=== PATIENT | female | born 1935 | race Caucasian/White ===

== ENCOUNTER → 2016-03-05 | Outpatient (REF) | payer MEDICARE, MEDICAID ==
[~2016-03-05] MED LIST: CALCTAB22 OR; CRES40TA OR; LISI40TA OR; OMEP20TA7 OR; VIT D 2000 PO
== END ==
LOC: M LAB REF 11:14
PROVIDERS: ATTEND Internal Medicine Endocrinology, Diabetes & Metabolism
DX: E04.2 Nontoxic multinodular goiter (principal)

== ENCOUNTER 2016-03-22 00:10 | Emergency (ER) | payer MEDICARE, MEDICAID ==
[2016-03-22] MEDS ORDERED: ACETAMINOPHEN 325 MG TAB As Ordered ONE (00:56)
[2016-03-22] MEDS ORDERED: ACETAMINOPH W/CODEINE #3 TAB UD As Ordered ONE (00:56)
--- NOTE | 2016-03-22 01:06 | EDDOCDS ---
Nurse's Notes [facility] Name: Radha Swain Age: 80 yrs Sex: Female : 1935 Arrival Date: 03/22/2016 Time: 00:10 Bed I1 / M1 Private MD: Diagnosis: Strain of muscle, fascia and tendon at neck level-left Presentation: 03/22 00:16 Presenting complaint: Patient states: pain to left side of neck that started this jo3 morning when she woke up. States that she cannot turn her head and it is painful to touch. Risk Factors No acute neurological deficit is noted. Adult Sepsis Screening: The patient does not have new or worsening altered mentation. Patient's respiratory rate is less than 22. Systolic blood pressure is greater than 100. Patient has a qSOFA score of 0- Negative Sepsis Screen. Suicide/Homicide risk assessment- the patient denies having any suicidal and/or homicidal ideations and does not present with any other emotional, behavioral or mental health complaints. Status: Patient is not a rural service engineer or dependent. Transition of care: patient was not received from another setting of care. 00:16 Acuity: ABELINO Level 4 jo3 00:16 Method Of Arrival: Walkin/Carried/Asstd jo3 Triage Assessment: 00:22 General: Appears in no apparent distress, Behavior is appropriate for age, cooperative, jo3 pleasant. Pain: Pain currently is 7 out of 10 on a pain scale. Neurological: Level of Consciousness is awake, alert. Respiratory: Airway is patent Respiratory effort is even, unlabored. Derm: Skin is pink, warm & dry. Historical: - Allergies: no known allergies; - Home Meds: 1. multivitamin Oral tab 1 tab daily 2. lisinopril 40 mg Oral tab 1 tab once daily 3. omeprazole 20 mg Oral cpDR 1 cap once daily 4. Advair Diskus 250-50 mcg/dose Inhl dsdv 2 times per day 5. aspirin 81 mg Oral tab 1 tab once daily 6. Crestor 40 mg Oral tab 1 tab once daily 7. Oysco-500 500 mg calcium (1,250 mg) oral tab twice a day 8. Vitamin D Oral 2000 unit daily - PMHx: Asthma; COPD; GERD; Hypercholesterolemia; Hypertension; Vitamin D deficiency; - PSHx: Cataract Surgery- Bilateral; - Social history: Smoking status: Patient states was never smoker of tobacco. No barriers to communication noted, The patient speaks fluent Ugandan, Speaks appropriately for age. - Family history: Not pertinent. - : The pt / caregiver states he / she is not on anticoagulants. Home medication list is obtained from the patient. - Exposure Risk Screening:: None identified. Screenin:52 Screening information is obtained from the patient. Fall risk: No risks identified. tm5 Assistance ADL's: requires no assistance with activities of daily living. Abuse/DV Screen: The patient / caregiver reports he/she is: not in a situation that causes fear, pain or injury. Nutritional screening: No deficits noted. Advance Directives: Currently, there is no health care proxy. There is no active DNR order. home support is adequate. Assessment: 00:53 General: Appears in no apparent distress, Behavior is appropriate for age, cooperative. tm5 Pain: Location: left side of neck Pain currently is 6 out of 10 on a pain scale. Quality of pain is described as aching. Neurological: Level of Consciousness is awake, alert, Oriented to person, place, time, Reports no additional symptoms. Respiratory: No deficits noted. GI: No deficits noted. : No deficits noted. Derm: Skin is pink, warm & dry. normal. Musculoskeletal: Reports pain in neck. 01:03 General: Appears in no apparent distress, Behavior is cooperative. General: Pt ld5 medicated per orders. Pain: Pain currently is 6 out of 10 on a pain scale. Respiratory: Airway is patent Respiratory effort is even, unlabored. Vital Signs: 00:22 BP 186 / 83; Pulse 82; Resp 16; Temp 99.2; Pulse Ox 96% ; Weight 53.07 kg; Height 5 ft. jo3 4 in. (162.56 cm); Pain 7/10; 00:32 BP 162 / 78 RA Sitting (man/); jo3 00:22 Body Mass Index 20.08 (53.07 kg, 162.56 cm) jo3 Vitals: 00:22 Log In Time: March 22, 2016 at 00:12. jo3 ED Course: 00:11 Patient visited by Leigh Martin Reg. hs2 00:11 Patient moved to Waiting hs2 00:20 Triage Initiated jo3 00:25 Patient visited by Ade Devries RN. jo3 00:36 Willam Mays PA is PHCP. mo1 00:36 John Henry DO is Attending Physician. mo1 00:36 Patient moved to I1 / M1 jo3 00:45 Patient visited by Willam Mays PA. mo1 00:52 Patient visited by Ashtyn Julien RN. tm5 00:52 ED physician to see patient. tm5 00:52 The patient / caregiver is instructed regarding the plan of care and ED course. tm5 00:52 No IV's were initiated during this patient's visit. No procedures done that require tm5 assistance. 01:05 Patient visited by Marilee Olivas RN. ld5 Administered Medications: 01:04 Drug: Acetaminophen-Codeine 1 tabs [acetaminophen 300 mg-codeine 30 mg tablet (1 tabs)] ld5 Route: PO; 01:05 Follow up: Response: Med's dispensed home ld5 01:05 Drug: Acetaminophen 650 mg [acetaminophen 325 mg tablet (2 tabs)] Route: PO; ld5 01:05 Follow up: Response: Pt left department before re-evaluation is appropriate ld5 Order Results: There are currently no results for this order. Outcome: 00:53 Discharge ordered by Provider. mo1 01:03 Discharge Assessment: Patient awake, alert and oriented x 3. No cognitive and/or ld5 functional deficits noted. Patient verbalized understanding of disposition instructions. patient administered narcotics - yes. Pt provided with safe discharge. The following High Risk Discharge criteria are identified: None. Discharged to home ambulatory, with friend. Condition: stable. Discharge instructions given to patient, Instructed on discharge instructions, follow up and referral plans. medication usage, no driving heavy equipment, Demonstrated understanding of instructions, medications, Pt was receptive of discharge instructions/ teaching. Prescriptions given X 1. No special radiology studies were completed. Property :Personal belongings accompany Pt. 01:05 Patient left the ED. ld5 Signatures: Ade Devries RN RN jo3 Marilee Olivas RN RN ld5 Willam Mays PA PA mo1 Leigh Martin, Reg Reg hs2 Ashtyn Julien,JUANCARLOS BAUER tm5 MTDD
--- NOTE | 2016-03-22 01:06 | EDDOCDS ---
Physician Documentation [facility] Name: Radha Swain Age: 80 yrs Sex: Female : 1935 Arrival Date: 03/22/2016 Time: 00:10 Bed I1 / M1 Private MD: Disposition: 03/22/16 00:53 Discharged to Home/Self Care. Impression: Strain of muscle, fascia and tendon at neck level - left. - Condition is Stable. - Discharge Instructions: Soft Tissue Injury of the Neck, Cervical Sprain. - Prescriptions for Tylenol- Codeine #3 300-30 mg Oral Tablet - take 2 tablet by ORAL route every 6 hours As needed MDD: 4 tabs; 6 tablet. - Medication Reconciliation, Local Pharmacy Hours form. - Follow up: Private Physician; When: Call to arrange an appointment; Reason: Recheck today's complaints, Continuance of care. - Problem is new. - Symptoms are unchanged. Historical: - Allergies: no known allergies; - Home Meds: 1. multivitamin Oral tab 1 tab daily 2. lisinopril 40 mg Oral tab 1 tab once daily 3. omeprazole 20 mg Oral cpDR 1 cap once daily 4. Advair Diskus 250-50 mcg/dose Inhl dsdv 2 times per day 5. aspirin 81 mg Oral tab 1 tab once daily 6. Crestor 40 mg Oral tab 1 tab once daily 7. Oysco-500 500 mg calcium (1,250 mg) oral tab twice a day 8. Vitamin D Oral 2000 unit daily - PMHx: Asthma; COPD; GERD; Hypercholesterolemia; Hypertension; Vitamin D deficiency; - PSHx: Cataract Surgery- Bilateral; - Social history: Smoking status: Patient states was never smoker of tobacco. No barriers to communication noted, The patient speaks fluent South Korean, Speaks appropriately for age. - Family history: Not pertinent. - : The pt / caregiver states he / she is not on anticoagulants. Home medication list is obtained from the patient. - Exposure Risk Screening:: None identified. Vital Signs: 03/22 00:22 BP 186 / 83; Pulse 82; Resp 16; Temp 99.2; Pulse Ox 96% ; Weight 53.07 kg / 117 lbs; jo3 Height 5 ft. 4 in. (162.56 cm); Pain 7/10; 00:32 BP 162 / 78 RA Sitting (man/); jo3 00:22 Body Mass Index 20.08 (53.07 kg, 162.56 cm) jo3 MDM: 00:52 Acetaminophen Tablet 650 mg PO once ordered. mo1 00:52 Acetaminophen-Codeine 300 mg-30 mg 1 tabs PO once; please give to go home ordered. mo1 Administered Medications: 01:04 Drug: Acetaminophen-Codeine 1 tabs [acetaminophen 300 mg-codeine 30 mg tablet (1 tabs)] ld5 Route: PO; 01:05 Follow up: Response: Med's dispensed home ld5 01:05 Drug: Acetaminophen 650 mg [acetaminophen 325 mg tablet (2 tabs)] Route: PO; ld5 01:05 Follow up: Response: Pt left department before re-evaluation is appropriate ld5 Signatures: Ade Devries RN RN jo3 Marilee Olivas RN RN ld5 Willam Mays PA PA mo1 Ashtyn Julien,RN RN tm5 MTDD
--- NOTE | 2016-03-24 02:06 | EDDOCDS ---
Nurse's Notes [facility] Name: Radha Swain Age: 80 yrs Sex: Female : 1935 Arrival Date: 03/22/2016 Time: 00:10 Bed I1 / M1 Private MD: Diagnosis: Strain of muscle, fascia and tendon at neck level-left Presentation: 03/22 00:16 Presenting complaint: Patient states: pain to left side of neck that started this jo3 morning when she woke up. States that she cannot turn her head and it is painful to touch. Risk Factors No acute neurological deficit is noted. Adult Sepsis Screening: The patient does not have new or worsening altered mentation. Patient's respiratory rate is less than 22. Systolic blood pressure is greater than 100. Patient has a qSOFA score of 0- Negative Sepsis Screen. Suicide/Homicide risk assessment- the patient denies having any suicidal and/or homicidal ideations and does not present with any other emotional, behavioral or mental health complaints. 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 Transition of care: patient was not received from another setting of care. 00:16 Acuity: ABELINO Level 4 jo3 00:16 Method Of Arrival: Walkin/Carried/Asstd jo3 Triage Assessment: 00:22 General: Appears in no apparent distress, Behavior is appropriate for age, cooperative, jo3 pleasant. Pain: Pain currently is 7 out of 10 on a pain scale. Neurological: Level of Consciousness is awake, alert. Respiratory: Airway is patent Respiratory effort is even, unlabored. Derm: Skin is pink, warm & dry. Historical: - Allergies: no known allergies; - Home Meds: 1. multivitamin Oral tab 1 tab daily 2. lisinopril 40 mg Oral tab 1 tab once daily 3. omeprazole 20 mg Oral cpDR 1 cap once daily 4. Advair Diskus 250-50 mcg/dose Inhl dsdv 2 times per day 5. aspirin 81 mg Oral tab 1 tab once daily 6. Crestor 40 mg Oral tab 1 tab once daily 7. Oysco-500 500 mg calcium (1,250 mg) oral tab twice a day 8. Vitamin D Oral 2000 unit daily - PMHx: Asthma; COPD; GERD; Hypercholesterolemia; Hypertension; Vitamin D deficiency; - PSHx: Cataract Surgery- Bilateral; - Social history: Smoking status: Patient states was never smoker of tobacco. No barriers to communication noted, The patient speaks fluent Cambodian, Speaks appropriately for age. - Family history: Not pertinent. - : The pt / caregiver states he / she is not on anticoagulants. Home medication list is obtained from the patient. - Exposure Risk Screening:: None identified. Screenin:52 Screening information is obtained from the patient. Fall risk: No risks identified. tm5 Assistance ADL's: requires no assistance with activities of daily living. Abuse/DV Screen: The patient / caregiver reports he/she is: not in a situation that causes fear, pain or injury. Nutritional screening: No deficits noted. Advance Directives: Currently, there is no health care proxy. There is no active DNR order. home support is adequate. Assessment: 00:53 General: Appears in no apparent distress, Behavior is appropriate for age, cooperative. tm5 Pain: Location: left side of neck Pain currently is 6 out of 10 on a pain scale. Quality of pain is described as aching. Neurological: Level of Consciousness is awake, alert, Oriented to person, place, time, Reports no additional symptoms. Respiratory: No deficits noted. GI: No deficits noted. : No deficits noted. Derm: Skin is pink, warm & dry. normal. Musculoskeletal: Reports pain in neck. 01:03 General: Appears in no apparent distress, Behavior is cooperative. General: Pt ld5 medicated per orders. Pain: Pain currently is 6 out of 10 on a pain scale. Respiratory: Airway is patent Respiratory effort is even, unlabored. Vital Signs: 00:22 BP 186 / 83; Pulse 82; Resp 16; Temp 99.2; Pulse Ox 96% ; Weight 53.07 kg; Height 5 ft. jo3 4 in. (162.56 cm); Pain 7/10; 00:32 BP 162 / 78 RA Sitting (man/); jo3 00:22 Body Mass Index 20.08 (53.07 kg, 162.56 cm) jo3 Vitals: 00:22 Log In Time: March 22, 2016 at 00:12. jo3 ED Course: 00:11 Patient visited by Liegh Martin Reg. hs2 00:11 Patient moved to Waiting hs2 00:20 Triage Initiated jo3 00:25 Patient visited by Ade Devries RN. jo3 00:36 Willam Mays PA is PHCP. mo1 00:36 John Henry DO is Attending Physician. mo1 00:36 Patient moved to I1 / M1 jo3 00:45 Patient visited by Willam Mays PA. mo1 00:52 Patient visited by Ashtyn Julien RN. tm5 00:52 ED physician to see patient. tm5 00:52 The patient / caregiver is instructed regarding the plan of care and ED course. tm5 00:52 No IV's were initiated during this patient's visit. No procedures done that require tm5 assistance. 01:05 Patient visited by Marilee Olivas RN. ld5 01:58 [facility] Payment Agreement was scanned into [employer] and attached to record. [facility] 14:06 T-Sheet-- Draft Copy was scanned into [employer] and attached to record. gb Administered Medications: 01:04 Drug: Acetaminophen-Codeine 1 tabs [acetaminophen 300 mg-codeine 30 mg tablet (1 tabs)] ld5 Route: PO; 01:05 Follow up: Response: Med's dispensed home ld5 01:05 Drug: Acetaminophen 650 mg [acetaminophen 325 mg tablet (2 tabs)] Route: PO; ld5 01:05 Follow up: Response: Pt left department before re-evaluation is appropriate ld5 Order Results: There are currently no results for this order. Outcome: 00:53 Discharge ordered by Provider. mo1 01:03 Discharge Assessment: Patient awake, alert and oriented x 3. No cognitive and/or ld5 functional deficits noted. Patient verbalized understanding of disposition instructions. patient administered narcotics - yes. Pt provided with safe discharge. The following High Risk Discharge criteria are identified: None. Discharged to home ambulatory, with friend. Condition: stable. Discharge instructions given to patient, Instructed on discharge instructions, follow up and referral plans. medication usage, no driving heavy equipment, Demonstrated understanding of instructions, medications, Pt was receptive of discharge instructions/ teaching. Prescriptions given X 1. No special radiology studies were completed. Property :Personal belongings accompany Pt. 01:05 Patient left the ED. ld5 Signatures: Bri Lauren, Reg Reg Ade Finney RN RN jo3 Marilee Olivsa RN RN ld5 Willam Mays PA PA mo1 Beena Verma Hillary, Reg Reg hs2 Ashtyn Julien,RN RN tm5 Chart Complete MTDD
--- NOTE | 2016-03-24 02:06 | EDDOCDS ---
Physician Documentation [facility] Name: Radha Swain Age: 80 yrs Sex: Female : 1935 Arrival Date: 03/22/2016 Time: 00:10 Bed I1 / M1 Private MD: Disposition: 03/22/16 00:53 Discharged to Home/Self Care. Impression: Strain of muscle, fascia and tendon at neck level - left. - Condition is Stable. - Discharge Instructions: Soft Tissue Injury of the Neck, Cervical Sprain. - Prescriptions for Tylenol- Codeine #3 300-30 mg Oral Tablet - take 2 tablet by ORAL route every 6 hours As needed MDD: 4 tabs; 6 tablet. - Medication Reconciliation, Local Pharmacy Hours form. - Follow up: Private Physician; When: Call to arrange an appointment; Reason: Recheck today's complaints, Continuance of care. - Problem is new. - Symptoms are unchanged. Historical: - Allergies: no known allergies; - Home Meds: 1. multivitamin Oral tab 1 tab daily 2. lisinopril 40 mg Oral tab 1 tab once daily 3. omeprazole 20 mg Oral cpDR 1 cap once daily 4. Advair Diskus 250-50 mcg/dose Inhl dsdv 2 times per day 5. aspirin 81 mg Oral tab 1 tab once daily 6. Crestor 40 mg Oral tab 1 tab once daily 7. Oysco-500 500 mg calcium (1,250 mg) oral tab twice a day 8. Vitamin D Oral 2000 unit daily - PMHx: Asthma; COPD; GERD; Hypercholesterolemia; Hypertension; Vitamin D deficiency; - PSHx: Cataract Surgery- Bilateral; - Social history: Smoking status: Patient states was never smoker of tobacco. No barriers to communication noted, The patient speaks fluent Tajik, Speaks appropriately for age. - Family history: Not pertinent. - : The pt / caregiver states he / she is not on anticoagulants. Home medication list is obtained from the patient. - Exposure Risk Screening:: None identified. Vital Signs: 03/22 00:22 BP 186 / 83; Pulse 82; Resp 16; Temp 99.2; Pulse Ox 96% ; Weight 53.07 kg / 117 lbs; jo3 Height 5 ft. 4 in. (162.56 cm); Pain 7/10; 00:32 BP 162 / 78 RA Sitting (man/); jo3 00:22 Body Mass Index 20.08 (53.07 kg, 162.56 cm) jo3 MDM: 00:52 Acetaminophen Tablet 650 mg PO once ordered. mo1 00:52 Acetaminophen-Codeine 300 mg-30 mg 1 tabs PO once; please give to go home ordered. mo1 01:07 Financial registration complete. [facility] 01:58 [facility] Payment Agreement was scanned into [employer] and attached to record. [facility] 14:06 T-Sheet-- Draft Copy was scanned into [employer] and attached to record. gb Administered Medications: 01:04 Drug: Acetaminophen-Codeine 1 tabs [acetaminophen 300 mg-codeine 30 mg tablet (1 tabs)] ld5 Route: PO; 01:05 Follow up: Response: Med's dispensed home ld5 01:05 Drug: Acetaminophen 650 mg [acetaminophen 325 mg tablet (2 tabs)] Route: PO; ld5 01:05 Follow up: Response: Pt left department before re-evaluation is appropriate ld5 Signatures: Bri Lauren, [place] Reg Ade Devries RN RN jo3 Marilee Olivas RN RN ld5 Willam Mays PA PA mo1 Beena Verma [facility] Ashtyn Julien,RN RN tm5 The chart was reviewed and I authenticate all verbal orders and agree with the evaluation and treatment provided.Attachments: :58 [facility] Payment Agreement [facility] 14: T-Sheet-- Draft Copy gb Chart Complete MTDD
--- NOTE | 2016-03-24 02:06 | EDDOCDS ---
Physician Documentation [facility] Name: Radha Swain Age: 80 yrs Sex: Female : 1935 Arrival Date: 03/22/2016 Time: 00:10 Bed I1 / M1 Private MD: Disposition: 03/22/16 00:53 Discharged to Home/Self Care. Impression: Strain of muscle, fascia and tendon at neck level - left. - Condition is Stable. - Discharge Instructions: Soft Tissue Injury of the Neck, Cervical Sprain. - Prescriptions for Tylenol- Codeine #3 300-30 mg Oral Tablet - take 2 tablet by ORAL route every 6 hours As needed MDD: 4 tabs; 6 tablet. - Medication Reconciliation, Local Pharmacy Hours form. - Follow up: Private Physician; When: Call to arrange an appointment; Reason: Recheck today's complaints, Continuance of care. - Problem is new. - Symptoms are unchanged. Historical: - Allergies: no known allergies; - Home Meds: 1. multivitamin Oral tab 1 tab daily 2. lisinopril 40 mg Oral tab 1 tab once daily 3. omeprazole 20 mg Oral cpDR 1 cap once daily 4. Advair Diskus 250-50 mcg/dose Inhl dsdv 2 times per day 5. aspirin 81 mg Oral tab 1 tab once daily 6. Crestor 40 mg Oral tab 1 tab once daily 7. Oysco-500 500 mg calcium (1,250 mg) oral tab twice a day 8. Vitamin D Oral 2000 unit daily - PMHx: Asthma; COPD; GERD; Hypercholesterolemia; Hypertension; Vitamin D deficiency; - PSHx: Cataract Surgery- Bilateral; - Social history: Smoking status: Patient states was never smoker of tobacco. No barriers to communication noted, The patient speaks fluent [place] Citizen, Speaks appropriately for age. - Family history: Not pertinent. - : The pt / caregiver states he / she is not on anticoagulants. Home medication list is obtained from the patient. - Exposure Risk Screening:: None identified. Vital Signs: 03/22 00:22 BP 186 / 83; Pulse 82; Resp 16; Temp 99.2; Pulse Ox 96% ; Weight 53.07 kg / 117 lbs; jo3 Height 5 ft. 4 in. (162.56 cm); Pain 7/10; 00:32 BP 162 / 78 RA Sitting (man/); jo3 00:22 Body Mass Index 20.08 (53.07 kg, 162.56 cm) jo3 MDM: 00:52 Acetaminophen Tablet 650 mg PO once ordered. mo1 00:52 Acetaminophen-Codeine 300 mg-30 mg 1 tabs PO once; please give to go home ordered. mo1 01:07 Financial registration complete. [facility] 01:58 [facility] Payment Agreement was scanned into [employer] and attached to record. [facility] 14:06 T-Sheet-- Draft Copy was scanned into [employer] and attached to record. gb Administered Medications: 01:04 Drug: Acetaminophen-Codeine 1 tabs [acetaminophen 300 mg-codeine 30 mg tablet (1 tabs)] ld5 Route: PO; 01:05 Follow up: Response: Med's dispensed home ld5 01:05 Drug: Acetaminophen 650 mg [acetaminophen 325 mg tablet (2 tabs)] Route: PO; ld5 01:05 Follow up: Response: Pt left department before re-evaluation is appropriate ld5 Signatures: Bri Lauren, [place] Reg Ade Devries RN RN jo3 Marilee Olivas RN RN ld5 Willam Mays PA PA mo1 Beena Verma [facility] Ashtyn Julien,RN RN tm5 The chart was reviewed and I authenticate all verbal orders and agree with the evaluation and treatment provided.Attachments: :58 [facility] Payment Agreement [facility] 14: T-Sheet-- Draft Copy gb Chart Complete MTDD
== END 2016-03-22 01:05 | disposition home or self-care (01) ==
LOC: M ED 00:10
DX: S16.1XXA Strain of muscle, fascia and tendon at neck level, initial encounter (principal); X50.9XXA Other and unspecified overexertion or strenuous movements or postures, initial encounter; Y92.019 Unspecified place in single-family (private) house as the place of occurrence of the external cause; Y93.89 Activity, other specified; Y99.8 Other external cause status; J44.9 Chronic obstructive pulmonary disease, unspecified; J45.909 Unspecified asthma, uncomplicated; K21.9 Gastro-esophageal reflux disease without esophagitis; E78.00 Pure hypercholesterolemia, unspecified; I10 Essential (primary) hypertension; E55.9 Vitamin D deficiency, unspecified; Z79.82 Long term (current) use of aspirin; Z79.51 Long term (current) use of inhaled steroids; Z79.899 Other long term (current) drug therapy

== ENCOUNTER 2016-05-22 10:31 | Inpatient (IN) | payer MEDICARE, MEDICAID ==
[~2016-05-22] VITALS: Ht 162.6 cm; Wt 53.2 kg
[2016-05-22] VITALS (8 sets, daily range): BP systolic 148–182; BP diastolic 62–80; O2SAT 85–96
[2016-05-22] MEDS: ADVAIR DISKUS 250/50 INH PWD INH SCH (01:58)
[~2016-05-22 10:31] MED LIST changes: +ADV100INH INH; +ADV250INH INH; +ASPI1TAB PO; +CRES5TAB PO; +LISI10TA4 PO; +OMEP40CA2 PO; +OYST500T76 PO; +PRESCAP PO; +VITA200038 PO
[2016-05-22] MEDS ORDERED: LR 1,000 ML IV SCH ×2 (10:45→17:00)
[2016-05-22] MEDS ORDERED: dexameTHASONE 4 MG/ML 1ML VIAL (J1100) IV ONE (12:15)
[2016-05-22] MEDS ORDERED: LIDOCAINE W/EPINEPHRINE 1% 20ML VIAL As Ordered ONE (12:50)
[2016-05-22] MEDS ORDERED: fentaNYL 100 MCG/2 ML INJECTION (J3010) As Ordered ONE ×2 (13:19→14:11)
[2016-05-22] MEDS ORDERED: MIDAZOLAM INJ 2 MG/2 ML VIAL (J2250) As Ordered ONE (13:19)
[2016-05-22] MEDS ORDERED: SUCCINYLCHOLINE 100 MG/5 ML SYRINGE (J0330) As Ordered ONE (13:24)
[2016-05-22] MEDS ORDERED: ONDANSETRON 4MG/2ML VIAL (J2405) As Ordered ONE (13:24)
[2016-05-22] MEDS ORDERED: PROPOFOL 200 MG/20 ML VIAL As Ordered ONE (13:24)
[2016-05-22] MEDS ORDERED: ROCURONIUM BROMIDE 50 MG/5 ML VIAL As Ordered ONE (13:25)
[2016-05-22] MEDS ORDERED: REMIFENTANIL 1MG 3ML VIAL As Ordered ONE (15:39)
[2016-05-22 16:57] LABS: IONIZED CALCIUM 4.8 MG/DL (4.5-5.3)
[2016-05-22] MEDS ORDERED: ONDANSETRON 4MG/2ML VIAL (J2405) IV PRN (17:00)
[2016-05-22] MEDS ORDERED: PERCOCET 5MG/325MG TAB PO PRN (17:00)
[2016-05-22] MEDS: LR 1,000 ML IV SCH (17:00)
[2016-05-22] MEDS ORDERED: MEPERIDINE INJ 25 MG/ML VIAL (J2175) IV PRN (17:00)
[2016-05-22] MEDS ORDERED: fentaNYL 100 MCG/2 ML INJECTION (J3010) IV PRN (17:00)
[2016-05-22] MEDS ORDERED: METOCLOPRAMIDE INJ 10MG/2ML VIAL (J2765) IV PRN (17:00)
[2016-05-22] MEDS ORDERED: ALBUTEROL SULFATE 2.5 MG/0.5 ML INH NEB SOLN INH ONE (17:30)
--- NOTE | 2016-05-22 18:54 | REP ---
CHEST, ONE VIEW: HISTORY: Post-op. COMPARISON: 12/13/2010. There is elevation of the left hemidiaphragm with loss of volume in the left hemithorax. Increased density is present in the left lower lobe consistent with atelectasis or infiltrate. The right lung is clear. The cardiac silhouette is enlarged. The pulmonary vasculature is normal in appearance. IMPRESSION: Left lower lobe atelectasis or infiltrate. Signed by Elton Nunn MD 05/22/2016 07:16 P
[2016-05-22] MEDS ORDERED: MORPHINE 4 MG/ML 1ML SYRINGE IV PRN (19:15)
[2016-05-22] MEDS ORDERED: ALBUTEROL SULFATE 2.5 MG/0.5 ML INH NEB SOLN As Ordered ONE (19:49)
[2016-05-22] MEDS: OYSTER SHELL CALCIUM 500 MG TAB PO SCH (21:00)
[2016-05-22] MEDS: ONDANSETRON 4MG/2ML VIAL (J2405) IV PRN (21:19)
[2016-05-22 22:38] LABS: IONIZED CALCIUM 4.4 MG/DL (4.5-5.3)
[2016-05-23] VITALS (11 sets, daily range): BP systolic 115–159; BP diastolic 58–106; O2SAT 92–97
[2016-05-23] MEDS: NORCO, ANEXSIA 5/325MG TABLET (HYDROcodone/ACETAMINOPHEN) PO PRN ×2 (03:19→11:20)
[2016-05-23 05:36] LABS: IONIZED CALCIUM 4.3 MG/DL (4.5-5.3)
[2016-05-23] MEDS: ROSUVASTATIN 10 MG TAB (CRESTOR) PO SCH (08:05)
[2016-05-23] MEDS: LISINOPRIL 10 MG TAB PO SCH (08:05)
[2016-05-23] MEDS: OMEPRAZOLE 20 MG CAP PO SCH (08:05)
[2016-05-23] MEDS: LR 1,000 ML IV SCH ×2 (08:06→22:41)
[2016-05-23] MEDS ORDERED: OYSTER SHELL CALCIUM 500 MG TAB PO SCH (09:00)
[2016-05-23] MEDS ORDERED: VITAMIN D (CHOLECALCIFEROL) 400 INTERNATIONAL UNITS TAB PO SCH (09:00)
[2016-05-23] MEDS: ADVAIR DISKUS 250/50 INH PWD INH SCH ×2 (09:29→21:46)
[2016-05-23] MEDS ORDERED: VITAMIN D 1,000 INTERNATIONAL UNITS TABLET PO SCH (09:42)
[2016-05-23] MEDS: OYSTER SHELL CALCIUM 500 MG TAB PO SCH ×4 (10:43→20:14)
[2016-05-23] MEDS: VITAMIN D 1,000 INTERNATIONAL UNITS TABLET PO SCH (10:43)
[2016-05-23 12:20] LABS: ANION GAP 9 MEQ/L (8-16); BLOOD UREA NITROGEN 28 MG/DL (7-18); CALCIUM LEVEL 7.9 MG/DL (8.8-10.2); CARBON DIOXIDE LEVEL 29 MEQ/L (21-32); CHLORIDE LEVEL 105 MEQ/L (98-107); GLOMERULAR FILTRATION RATE > 60.0 (>39); GLUCOSE, FASTING 114 MG/DL (83-110); POTASSIUM SERUM 3.8 MEQ/L (3.5-5.1); SODIUM LEVEL 143 MEQ/L (136-145)
[2016-05-23] MEDS ORDERED: CALCIUM GLUCONATE 1,000 MG in D5W MINI-BAG PLUS 100 ML IV ONE (14:00)
[2016-05-23] MEDS: AUGMENTIN 875 MG TAB PO SCH ×2 (14:58→20:14)
--- NOTE | 2016-05-23 15:30 | ECGEPIP ---
Stationary ECG Study [facility] Test Date: 2016-05-23 Pat Name: JACE BAH Department: Room: [place] [address] Gender: F Powertrain Engineer: JOSTIN : 1935 Requested By: FIORDALIZA Durán Order Number: [id number] Reading MD: Moncho Alejandre Measurements Intervals [place] Rate: 95 P: 57 IN: 202 QRS: 10 QRSD: 90 T: 32 QT: 345 QTc: 436 Interpretive Statements SINUS RHYTHM WITH FREQUENT SUPRAVENTRICULAR PREMATURE COMPLEXES SEPTAL MYOCARDIAL INFARCTION, PROBABLY OLD Nonspecific ST-T abnormalities. No prior ECG available for comparison at the time of interpretation. Electronically Signed On 05-23-2016 15:30:41 EDT by Moncho Alejandre
--- NOTE | 2016-05-23 16:32 | CR.PDOC ---
[facility] Consultation Consultation Internal medicine Consult Note Date of Consultation: 05/23/2016 Reason for Consultation: Hypocalcemia and hypomagnesemia status post total thyroidectomy Referring Provider: Dr. Lawrence Comer PCP: Dr. Serrano HISTORY OF PRESENT ILLNESS: Ms. Swain is a 81-year-old female who came into the hospital for a total thyroidectomy and flexible laryngoscopy with Dr. Gooden. Previously she had been followed by her division operations specialist Dr. Meghna Parrish for history of multinodular goiter, however it was discovered that she had an enlargement of a left thyroid nodule, a fine-needle aspirate showed atypical cytology on 2 different occasions showing atypical loops of enlarged follicular cells. She is postoperative day 1 and noted to have hypocalcemia and hypomagnesemia, therefore internal medicine was consulted. Pathology report for her thyroid is still pending at this time. ALLERGIES: No known drug allergies PAST MEDICAL HISTORY: 1. History of multinodular goiter, presurgical FNA pathology shows atypical groups of enlarged follicular cells with overlapping nuclei. Rare Hurthle cell changes are also noted focally. The background shows rare colloid. The possibility of a thyroid carcinoma cannot be excluded. There is also a note on an earlier FNA indicating that these findings are worrisome for papillary carcinoma. 2. Osteoporosis 3. Essential hypertension 4. Chronic kidney disease stage III 5. 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 Chronic obstructive lung disease 7. History of thalassemia minor 8. 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 9. History of abnormal mammogram for which she is being followed by Dr. Mcdonald. PAST SURGICAL HISTORY: Bilateral cataract surgery SOCIAL HISTORY: Denies ever smoking, regular alcohol use, or illicit drug use. 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 Currently she lives alone in an apartment in [place] with her sister living upstairs and a good friend 2 doors down who are both very supportive. She does not have any pets. FAMILY HISTORY: She knows that multiple siblings have had cancer, but she does not know which kind. Otherwise she is unaware of any additional medical problems that run in her family. REVIEW OF SYSTEMS: Constitutional: Patient denies fevers, chills, night sweats, recent weight gain/ loss. HEENT: Patient denies blurred or double vision, transient visual disturbances, postnasal drip, epistaxis, she does admit to having a sore throat and some difficulty swallowing food because of her recent surgery, therefore she continues to be on a soft mechanical diet. Cardiovascular: Patient denies chest discomfort/pain, palpitations, exertional dyspnea, orthopnea, edema of the extremities, claudication. Respiratory: Patient denies dyspnea, wheezing, cough, hemoptysis, sputum production. She is feeling a little SOB Gastrointestinal: Patient denies nausea, vomiting, diarrhea, constipation, abdominal pain, melena, hematochezia, hematemesis, jaundice. Musculoskeletal: Patient denies joint stiffness, pain, swelling Endocrine: Patient denies polyuria, polydipsia, polyphagia. PHYSICAL EXAMINATION: Vitals: Temperature 101.5, pulse 87 regular, respiratory rate 20, blood pressure 136/62, pulse oximetry is 93% on 3 L high flow cannula General: She is reclined in the hospital bed. She is awake, alert, oriented 3. She is a very pleasant mood, and does not voice any concerns at this time. HEENT: Head normocephalic atraumatic, conjunctiva are pink, sclera are nonicteric, buccal mucosa is pink and moist with no lesions in the oropharynx. Hearing is grossly intact to conversation. She does have an area of ecchymoses extending from the surgical site at her suprasternal notch spreading down over the right pectoral region. Steri-Strips are in place. She has hx of carotid bruit, this could not be appreciated on today's exam as she has significant tracheal noises, and would not cooperate with holding breath as she was somewhat anxious and SOB. Respiratory: Clear to auscultation bilaterally with no wheezes, rales, or rhonchi. Cardiovascular: Regular rate and rhythm, with no rubs, gallops, or murmur. Occasional premature beat is noted. Abdomen: Soft, nontender, nondistended, no hepatosplenomegaly appreciated. Bowel sounds present. Extremities: 2+ pulses in the radial and dorsalis pedis bilaterally. No evidence of clubbing or cyanosis. ELECTROCARDIOGRAM: Official read pending, however it appears to be Sinus rhythm with first-degree AV block with occasional premature supraventricular complexes, and similar to her preoperative EKG taken on 05/16/2016 ASSESSMENT/PLAN: 1. Hypomagnesemia and hypocalcemia status post total thyroidectomy. Will administer IV calcium gluconate at this time, as well as IV magnesium supplementation. She does not have any carpopedal spasms, tetany, or paresthesias at this time. EKG is similar to her preoperative EKG, and does not show signs of QT prolongation at this time. 2. History of multinodular goiter with atypical findings on FNA. Postsurgical pathology report is not available at this time. It appears from medical record that she may have had hyperthyroidism secondary to this, and a TSH checked today is still suppressed at 0.336. And depending on whether or not she has benign or malignant disease, this will determine whether or not we should initiate thyroid hormone supplementation. In benign disease for patient's who undergo total thyroidectomy they're typically started on a daily dose of levothyroxine at approximately 1.6 MCG/KG and body weight after surgery, however because of her advanced age she may be started on a slightly lower dose. If it turns out that she has malignant disease and she will have a need for radioiodine ablation postoperatively, she may be discharged home without any thyroid hormone replacement if she is to receive VERDE within 2-3 weeks as thyroid hormone which were all raises a TSH level, which stimulates radioiodine uptake and improves efficacy of VERDE. If she is going to have VERDE, however not within 2-3 weeks, she may be discharged on liothyronine (T3) which is a short acting thyroid hormone. No matter the outcome, she will need lifelong outpatient monitoring. 3. Hypertension. Continue lisinopril 4. GERD. Continue home dose of omeprazole 5. Osteoporosis, vitamin D deficiency, low parathyroid hormone. Continue with calcium and vitamin D supplementation 6. Dyslipidemia. Continue Crestor 7. COPD. Continue with Advair Diskus. Supplemental oxygen to be weaned off as the patient can tolerate My preceptor for this patient encounter was physically present in the building during the encounter and was fully available. As needed, all aspects of the patient interview, examination, medical decision making process, and medical care plan development were reviewed and approved by the preceptor. Preceptor is aware and concurs with the plan as stated in the body of this note and will attest to such by his/her cosignature. Laboratory Data Labs 24H Laboratory Tests 2 05/22/16 16:46: Parathyroid Hormone (Intact) < 6.3L, Whole Blood Ionized Calcium 4.8 05/22/16 22:24: Parathyroid Hormone (Intact) < 6.3L, Whole Blood Ionized Calcium 4.4L 05/23/16 05:27: Parathyroid Hormone (Intact) < 6.3L, Whole Blood Ionized Calcium 4.3L 05/23/16 11:40: Whole Blood Ionized Calcium 4.1L, Anion Gap 9, Blood Urea Nitrogen 28H, Creatinine 0.90, Sodium Level 143, Potassium Level 3.8, Chloride Level 105, Carbon Dioxide Level 29, Calcium Level 7.9L, Glomerular Filtration Rate > 60.0 05/23/16 13:21: 25-Hydroxy Vitamin D Total 39.2, Magnesium Level 1.4L, Parathyroid Hormone ( Intact) < 6.3L, Thyroid Stimulating Hormone (TSH) 0.336L CBC/BMP Laboratory Tests 05/23/16 11:40 Calcium Level 7.9 L Allergies Coded Allergies: No Known Drug Allergy (Verified Allergy, Unknown, 05/24/12) Home Medications Scheduled (Preservision Areds) 1 Cap Cap 1 CAP PO BID (Reported) Aspirin (Aspirin 81) 81 Mg Tab #30 81 MG PO DAILY (Reported) Cholecalciferol (Vitamin D-3) 2,000 Unit Tab 2,000 UNIT PO DAILY (Reported) Lisinopril (Lisinopril) 10 Mg Tab 40 MG PO DAILY (Reported) Omeprazole (Omeprazole) 40 Mg Cap 20 MG PO DAILY (Reported) Oyster Shell Calcium (Oyster-Anthony 500) 500 Mg Tab 500 MG PO BID (Reported) Rosuvastatin Calcium (Crestor) 5 Mg Tab 40 MG PO DAILY (Reported) Salmeterol/Fluticasone (Advair Diskus 250-50 Mcg/Dose) 14 Puff/Inhaler Aerp 1 PUFF INH BID (Reported) MONIQUE AYALA DO May 23, 2016 16:32
[2016-05-23] MEDS: CALCIUM CARBONATE 500 MG CHEW U/D PO SCH (17:55)
[2016-05-23] MEDS: MAG SULF 1GM/100ML (MAG RUN) 1 GM in APPROPRIATE DILUENT 1 EA IV SCH ×3 (17:55→20:21)
[2016-05-23] MEDS: CALCITRIOL 0.25 MCG CAP (S0169) PO SCH (17:55)
[2016-05-23] MEDS: ACETAMINOPHEN TAB 650MG DOSE (2X325MG) PO PRN (20:14)
[2016-05-23 20:38] LABS: MEAN CORPUSCULAR HEMOGLOBIN 21.1 pg (27.0-33.0); MEAN CORPUSCULAR HGB CONC 31.7 g/dl (32.0-36.5); MEAN CORPUSCULAR VOLUME 66.5 fl (80.0-96.0); PLATELET COUNT, AUTOMATED 134 k/mm3 (150-450); RED CELL DISTRIBUTION WIDTH 16.6 % (11.5-14.5); WHITE BLOOD COUNT 6.2 K/mm3 (4.0-10.0)
[2016-05-23 21:32] LABS: BANDS 1 % (< 11)
[2016-05-23 21:33] LABS: ANISOCYTOSIS 1+; HYPOCHROMASIA 1+; MICROCYTOSIS 3+; OVALOCYTES 1+; TEAR DROP CELLS 1+
[2016-05-24] VITALS (14 sets, daily range): BP systolic 114–138; BP diastolic 60–66; O2SAT 92–99
[2016-05-24] MEDS: OSELTAMIVIR PHOSPHATE 30MG CAPSULE PO SCH ×3 (01:54→20:49)
[2016-05-24] MEDS: ONDANSETRON 4MG/2ML VIAL (J2405) IV PRN (03:57)
[2016-05-24] MEDS: guaiFENesin SYRUP 200 MG/10 ML UDC PO PRN (04:02)
[2016-05-24 05:24] LABS: MEAN CORPUSCULAR HEMOGLOBIN 20.9 pg (27.0-33.0); MEAN CORPUSCULAR HGB CONC 30.9 g/dl (32.0-36.5); MEAN CORPUSCULAR VOLUME 67.7 fl (80.0-96.0); RED CELL DISTRIBUTION WIDTH 16.7 % (11.5-14.5); WHITE BLOOD COUNT 6.9 K/mm3 (4.0-10.0)
[2016-05-24 05:37] LABS: ALBUMIN 2.8 GM/DL (3.2-5.2); ANION GAP 9 MEQ/L (8-16); BLOOD UREA NITROGEN 18 MG/DL (7-18); CALCIUM LEVEL 7.6 MG/DL (8.8-10.2); CARBON DIOXIDE LEVEL 26 MEQ/L (21-32); CHLORIDE LEVEL 104 MEQ/L (98-107); CREATININE FOR GFR 0.66 MG/DL (0.55-1.02); GLOMERULAR FILTRATION RATE > 60.0 (>39); GLUCOSE, FASTING 86 MG/DL (83-110); PHOSPHORUS LEVEL 2.8 MG/DL (2.5-4.9); POTASSIUM SERUM 3.5 MEQ/L (3.5-5.1); SODIUM LEVEL 139 MEQ/L (136-145)
[2016-05-24] MEDS: ADVAIR DISKUS 250/50 INH PWD INH SCH ×2 (07:31→20:02)
--- NOTE | 2016-05-24 08:23 | REP ---
Portable chest, single AP view, patient sitting: Comparisons 12/13/2010. There is an infiltrate inferiorly in the right lung as an interval change. The right costophrenic angle is effaced as an interval change suggestive of a right pleural effusion. The left costophrenic angle. Left hemidiaphragm are obscured. This could represent a left pleural effusion, left lower lobe infiltrate, or combination. There is chronic cardiomegaly, unchanged. There are old healed left rib fractures, unchanged. Impression: Bibasilar infiltrates and bilateral pleural effusions. Chronic cardiomegaly. Signed by Malik Hernandez MD 05/24/2016 08:14 A
[2016-05-24] MEDS: LR 1,000 ML IV SCH ×2 (09:00→09:08)
[2016-05-24] MEDS ORDERED: INFLUENZA VIRUS VACCINE HIGH DOSE 0.5 ML SYRINGE (90662) IM SCH (09:00)
[2016-05-24] MEDS: ROSUVASTATIN 10 MG TAB (CRESTOR) PO SCH (09:09)
[2016-05-24] MEDS: OMEPRAZOLE 20 MG CAP PO SCH (09:09)
[2016-05-24] MEDS: CALCITRIOL 0.25 MCG CAP (S0169) PO SCH (09:11)
[2016-05-24] MEDS: LISINOPRIL 10 MG TAB PO SCH (09:11)
[2016-05-24] MEDS: VITAMIN D 1,000 INTERNATIONAL UNITS TABLET PO SCH (09:11)
[2016-05-24] MEDS: AUGMENTIN 875 MG TAB PO SCH ×2 (09:12→20:49)
[2016-05-24] MEDS: OYSTER SHELL CALCIUM 500 MG TAB PO SCH ×4 (09:12→20:49)
[2016-05-24] MEDS: CALCIUM CARBONATE 500 MG CHEW U/D PO SCH ×3 (09:12→18:50)
[2016-05-24] MEDS ORDERED: SLF 3 ML SYR IV PRN (16:30)
--- NOTE | 2016-05-24 18:11 | IPNPDOC ---
Date Seen The patient was seen on 05/24/16. Progress Note Internal Medicine Progress Note Subjective: Mrs. Swain was seen and evaluated at the bedside this morning. She does continue to have shortness of breath, and she does continue to require oxygen. She does have a mild productive cough at this point, but she is unable to forcefully cough because of her sore throat secondary to her recent surgery. Otherwise, she is in a good mood and does not have any additional complaints. Specifically she denies having any palpitations, chest discomfort, wheezes, abdominal discomfort, nausea, vomiting, diarrhea, muscle spasticity or irritability, twitching, or edema. Objective: General: Awake, alert, oriented 3. She is very pleasant. HEENT: Head normocephalic, atraumatic, sclera are nonicteric. Hearing is grossly intact to conversation. Respiratory: Continues to be clear to auscultation bilaterally with no appreciable wheezes, rales, or rhonchi. Cardiovascular: Irregularly irregular with no murmurs, rubs, or gallops. Abdomen: Soft, nontender, nondistended, no hepatosplenomegaly appreciated. Bowel sounds present. Extremities: 2+ pulses in the radial and dorsalis pedis bilaterally. No evidence of clubbing or cyanosis. Assessment/Plan: 1. Influenza B. Tamiflu was started overnight, influenza virus vaccine also administered this morning. She does continue to require oxygen, as this is early on in her course. She is quite fatigued and short of breath. We will continue with supportive measures and droplet isolation. 2. Hypomagnesemia and hypocalcemia status post total thyroidectomy. Corrected calcium today is 8.6, which is only slightly low, ionized calcium is 4.1 which is also just below the normal value. We'll continue with oral supplementation at this time, there is no need for IV supplementation given that she is asymptomatic. Hypomagnesemia is resolved today, we'll continue to monitor electrolytes. 3. Papillary carcinoma of the thyroid. We will defer to ENT regarding her treatment, if she will not be scheduled for VERDE, recommend thyroid supplementation with Synthroid. If she will be scheduled for VERDE within the next 2-3 weeks now thyroid supplementation is recommended. She will be scheduled for VERDE but this will be beyond 2-3 weeks, recommend starting on liothyronine (T3) which is a short acting thyroid hormone 4. New onset afib. This is an elderly female who just underwent surgery who has concurrent COPD and is now diagnosed with the acute illness of influenza. I suspect that her acute pulmonary disease is the cause of her new onset A. fib, and also may be associated with the rapid and drastic changes regarding her thyroid. We will repeat an EKG, and keep her in a telemetry bed. At present she is rate controlled without intervention. 5. Hypertension. Continue lisinopril 6. GERD. Continue home dose of omeprazole 7. Osteoporosis, vitamin D deficiency, low parathyroid hormone. Continue with calcium and vitamin D supplementation 8. Dyslipidemia. Continue Crestor 9. COPD. Continue with Advair Diskus. Supplemental oxygen to be weaned off as the patient can tolerate 10. DVT prophylaxis. Teds and sequentials. My preceptor for this patient encounter was physically present in the building during the encounter and was fully available. As needed, all aspects of the patient interview, examination, medical decision making process, and medical care plan development were reviewed and approved by the preceptor. Preceptor is aware and concurs with the plan as stated in the body of this note and will attest to such by his/her cosignature. VS, I&O, 24H, Fishbone Vital Signs/I&O Vital Signs Date Time Temp Pulse Resp B/P Pulse Ox O2 Delivery O2 Flow Rate FiO2 05/24/16 12:00 100.0 95 18 114/64 97 Room Air 05/24/16 08:03 6.0 05/23/16 08:00 60 I&O- Last 24 Hours up to 6 AM 05/24/16 06:00 Intake Total 1330 ml Output Total 2025 ml Balance -695 ml Laboratory Data 24H LABS Laboratory Tests 2 05/23/16 20:14: Anisocytosis 1+, Band Neutrophils 1, White Blood Count 6.2, Red Blood Count 4.01 , Hemoglobin 8.5L, Hematocrit 26.7L, Mean Corpuscular Volume 66.5L, Mean Corpuscular Hemoglobin 21.1L, Mean Corpuscular Hemoglobin Concent 31.7L, Red Cell Distribution Width 16.6H, Platelet Count 134L, Neutrophils (%) (Auto) , Lymphocytes (%) (Auto) , Monocytes (%) (Auto) , Eosinophils (%) (Auto) , Basophils (%) (Auto) , Neutrophils # (Auto) , Lymphocytes # (Auto) , Monocytes # (Auto) , Eosinophils # (Auto) , Basophils # (Auto) , Hypochromasia 1+, Lactic Acid Level 1.2, Large Unclassified Cells # , Large Unclassified Cells % , Lymphocytes (Manual) 20, Microcytosis 3+, Monocytes (Manual) 6, Neutrophils 73, Ovalocytes 1+, Platelet Estimate DECREASED, Tear Drop Cells 1+ 05/23/16 23:51: Whole Blood Ionized Calcium 4.1L 05/24/16 05:10: Whole Blood Ionized Calcium 4.1L, Albumin 2.8L, Blood Urea Nitrogen 18, Creatinine 0.66, Sodium Level 139, Potassium Level 3.5, Chloride Level 104, Carbon Dioxide Level 26, Anion Gap 9, Calcium Level 7.6L, Glomerular Filtration Rate > 60.0, Magnesium Level 2.0, Phosphorus Level 2.8 05/24/16 11:59: Whole Blood Ionized Calcium 4.1L 05/24/16 17:57: CBC/BMP Laboratory Tests 05/23/16 20:14 Red Blood Count 4.01, Mean Corpuscular Volume 66.5 L, Mean Corpuscular Hemoglobin 21.1 L, Mean Corpuscular Hemoglobin Concent 31.7 L, Red Cell Distribution Width 16.6 H, Neutrophils (%) (Auto) , Lymphocytes (%) (Auto) , Monocytes (%) (Auto) , Eosinophils (%) (Auto) , Basophils (%) (Auto) , Neutrophils # (Auto) , Lymphocytes # (Auto) , Monocytes # (Auto) , Eosinophils # (Auto) , Basophils # (Auto) 05/24/16 05:10 Red Blood Count 3.88 L, Mean Corpuscular Volume 67.7 L, Mean Corpuscular Hemoglobin 20.9 L, Mean Corpuscular Hemoglobin Concent 30.9 L, Red Cell Distribution Width 16.7 H, Anion Gap 9 Microbiology Microbiology 05/23/16 Blood Culture, Received Pending 05/23/16 Blood Culture, Received Pending 05/23/16 Respiratory Virus Panel (PCR) ([facility]) - Final, Complete Influenza B MONIQUE AYALA DO May 24, 2016 18:11
[2016-05-24] MEDS: LIOTHYRONINE 25 MCG TAB PO SCH (18:53)
--- NOTE | 2016-05-24 20:41 | ECGEPIP ---
Stationary ECG Study [facility] Test Date: 2016-05-24 Pat Name: JACE BAH Department: Room: [place] [address] Gender: F [employer] Tender: : 1935 Requested By: FIORDALIZA Durán Order Number: [id number] Reading MD: Bobo Blue Measurements Intervals [place] Rate: 82 P: [place]: 0 QRS: 8 QRSD: 98 T: 61 QT: 356 QTc: 416 Interpretive Statements Underlying atrial fibrillation with controlled ventricular response Somewhat low limb voltages with slow precordial R-wave progression Possibly body habitus versus pulmonary disease; rule out prior septal injury. Subtle ST/T-wave abnormalities Rhythm change from 05/23/16 at 1402 hours. Electronically Signed On 05-24-2016 20:40:50 EDT by Bobo Blue
--- NOTE | 2016-05-24 20:46 | ECGEPIP ---
Stationary ECG Study [facility] Test Date: 2016-05-24 Pat Name: JACE BAH Department: Room: [place] [address] Gender: F [employer] Worker: : 1935 Requested By: ELI VÁSQUEZ Order Number: [id number] Reading MD: Bobo Blue Measurements Intervals [place] Rate: 101 P: [place]: 0 QRS: -12 QRSD: 96 T: 41 QT: 343 QTc: 445 Interpretive Statements Underlying atrial fibrillation with marginally rapid ventricular response Low voltages with slow precordial R-wave progression and persistent S waves V5 and V6 and QS pattern III and aVF; body habitus versus pulmonary disease Rule out prior septal/inferior injuries Nonspecific ST/T-wave abnormalities Other than slightly faster heart rate, no change from earlier this same day. Electronically Signed On 05-24-2016 20:45:26 EDT by Bobo Blue
[2016-05-24] MEDS: SLF 3 ML SYR IV SCH (20:49)
[2016-05-25] VITALS (19 sets, daily range): BP systolic 118–158; BP diastolic 52–74; O2SAT 90–99
[2016-05-25] MEDS: SLF 3 ML SYR IV SCH ×3 (03:49→21:57)
[2016-05-25 05:52] LABS: MEAN CORPUSCULAR HEMOGLOBIN 20.3 pg (27.0-33.0); MEAN CORPUSCULAR HGB CONC 29.9 g/dl (32.0-36.5); RED CELL DISTRIBUTION WIDTH 16.6 % (11.5-14.5); WHITE BLOOD COUNT 6.2 K/mm3 (4.0-10.0)
[2016-05-25 06:00] LABS: ALBUMIN 2.6 GM/DL (3.2-5.2); ANION GAP 9 MEQ/L (8-16); BLOOD UREA NITROGEN 16 MG/DL (7-18); CALCIUM LEVEL 7.6 MG/DL (8.8-10.2); CARBON DIOXIDE LEVEL 29 MEQ/L (21-32); CHLORIDE LEVEL 103 MEQ/L (98-107); CREATININE FOR GFR 0.75 MG/DL (0.55-1.02); GLOMERULAR FILTRATION RATE > 60.0 (>39); GLUCOSE, FASTING 91 MG/DL (83-110); MAGNESIUM LEVEL 1.6 MG/DL (1.8-2.4); PHOSPHORUS LEVEL 2.8 MG/DL (2.5-4.9); POTASSIUM SERUM 3.3 MEQ/L (3.5-5.1); SODIUM LEVEL 141 MEQ/L (136-145)
[2016-05-25] MEDS: ADVAIR DISKUS 250/50 INH PWD INH SCH ×2 (07:18→20:12)
[2016-05-25] MEDS ORDERED: POTASSIUM CHLORIDE 10 MEQ SR TABLET PO ONE (08:15)
[2016-05-25] MEDS: CALCIUM CARBONATE 500 MG CHEW U/D PO SCH ×3 (10:13→16:35)
[2016-05-25] MEDS: LIOTHYRONINE 25 MCG TAB PO SCH (10:14)
[2016-05-25] MEDS: ROSUVASTATIN 10 MG TAB (CRESTOR) PO SCH (10:14)
[2016-05-25] MEDS: MAG SULF 1GM/100ML (MAG RUN) 1 GM in APPROPRIATE DILUENT 1 EA IV SCH ×4 (10:14→13:27)
[2016-05-25] MEDS: AUGMENTIN 875 MG TAB PO SCH ×2 (10:14→21:52)
[2016-05-25] MEDS: LISINOPRIL 10 MG TAB PO SCH (10:15)
[2016-05-25] MEDS: OMEPRAZOLE 20 MG CAP PO SCH (10:15)
[2016-05-25] MEDS: OYSTER SHELL CALCIUM 500 MG TAB PO SCH ×3 (10:15→21:56)
[2016-05-25] MEDS: MAGNESIUM OXIDE 400 MG TAB (MAG-OX) PO SCH ×2 (10:15→21:53)
[2016-05-25] MEDS: VITAMIN D 1,000 INTERNATIONAL UNITS TABLET PO SCH (10:16)
[2016-05-25] MEDS: OSELTAMIVIR PHOSPHATE 30MG CAPSULE PO SCH ×2 (10:16→21:52)
[2016-05-25] MEDS: CALCITRIOL 0.25 MCG CAP (S0169) PO SCH (10:16)
[2016-05-25] MEDS: guaiFENesin SYRUP 200 MG/10 ML UDC PO PRN (10:16)
[2016-05-25 11:36] LABS: FREE T4 1.35 NG/DL (0.76-1.46)
--- NOTE | 2016-05-25 12:20 | IPNPDOC ---
Date Seen The patient was seen on 05/25/16. Progress Note Internal Medicine Progress Note Subjective: Mrs. Swain is in a pleasant mood this morning, she is feeling much better this today. She is sitting upright in the bed. She states that she still is coughing up a little bit of phlegm, but that her pharyngeal secretions are significantly improved, and while she still is short of breath, she thinks that it is better today than yesterday. Otherwise, she denies any additional symptoms, and the remainder of her review of systems is negative. Objective: General: Awake, alert, oriented 3. She is very pleasant. HEENT: Head normocephalic, atraumatic, sclera are nonicteric. Hearing is grossly intact to conversation. Respiratory: Continues to be clear to auscultation bilaterally with no appreciable wheezes, rales, or rhonchi. Cardiovascular: Irregularly irregular with no murmurs, rubs, or gallops. Abdomen: Soft, nontender, nondistended, no hepatosplenomegaly appreciated. Bowel sounds present. Extremities: 2+ pulses in the radial and dorsalis pedis bilaterally. No evidence of clubbing or cyanosis. Assessment/Plan: 1. Influenza B. Continue Tamiflu, influenza virus vaccine administered. She is on oxygen this morning, however she has not been titrated down yet. We will begin this process, she has actually been satting in the high 90s which is not ideal for someone with COPD. 2. Electrolyte abnormalities. Hypokalemia, Hypomagnesemia, and hypocalcemia status post total thyroidectomy. Corrected calcium today is 8.7, which is approximately same as yesterday, but continues to be slightly low. I will increase her oral calcium to 1000 by mouth 3 times a day. Magnesium has dropped once again, we'll continue with magnesium 400 mg by mouth twice a day which we will likely have to continue for at least 1 month. Will correct her immediate hypomagnesemia with IV magnesium as well this time. She also has hypokalemia today, and correcting the above to electrolyte abnormalities, this will help her absorption of potassium, and therefore I will give her by mouth potassium at this time and continue to monitor. 3. Papillary carcinoma of the thyroid. We will defer to ENT regarding her treatment, if she will not be scheduled for VERDE, recommend thyroid supplementation with Synthroid. If she will be scheduled for VERDE within the next 2-3 weeks now thyroid supplementation is recommended. She will be scheduled for VERDE but this will be beyond 2-3 weeks, recommend starting on liothyronine (T3) which is a short acting thyroid hormone 4. New onset afib. Likely from her acute illness with influenza on top of the fact that she recently just had surgery. There is also the possibility that this could've been induced by rapid changes in her thyroid levels, we'll check a free T4 today in addition to her TSH prior. The pretest probability of her having a DVT at this point is scores a 1.5, which is low at 4%. Upon exam today , I can hear both S1 and S2, and she does appear to be regular, P waves are difficult to distinguish on the hospital monitor, therefore will order another repeat EKG at this time, and check an echocardiogram for valvular abnormalities. 5. Acute on chronic anemia. She does have a history of thalassemia, however her hematocrit has dropped to 7 today. In the clinical setting of shortness of breath, fatigue, new onset atrial fibrillation, we will administer 2 units of packed red blood cells 6. Hypertension. Continue lisinopril 7. GERD. Continue home dose of omeprazole 8. Osteoporosis, vitamin D deficiency, low parathyroid hormone. Continue with calcium and vitamin D supplementation 9. Dyslipidemia. Continue Crestor 10. COPD. Continue with Advair Diskus. Supplemental oxygen to be weaned off as the patient can tolerate 11. DVT prophylaxis. Teds and sequentials. My preceptor for this patient encounter was physically present in the building during the encounter and was fully available. As needed, all aspects of the patient interview, examination, medical decision making process, and medical care plan development were reviewed and approved by the preceptor. Preceptor is aware and concurs with the plan as stated in the body of this note and will attest to such by his/her cosignature. VS, I&O, 24H, Fishbone Vital Signs/I&O Vital Signs Date Time Temp Pulse Resp B/P Pulse Ox O2 Delivery O2 Flow Rate FiO2 05/25/16 11:10 94 05/25/16 11:10 4.0 05/25/16 08:00 97.4 85 19 141/70 Nasal Cannula 05/23/16 08:00 60 I&O- Last 24 Hours up to 6 AM 05/25/16 05:59 Intake Total 1240 ml Output Total 1050 ml Balance 190 ml Laboratory Data 24H LABS Laboratory Tests 2 05/24/16 17:57: Whole Blood Ionized Calcium 4.0L 05/25/16 05:19: Albumin 2.6L, Blood Urea Nitrogen 16, Creatinine 0.75, Sodium Level 141, Potassium Level 3.3L, Chloride Level 103, Carbon Dioxide Level 29, Anion Gap 9, Calcium Level 7.6L, Free Thyroxine 1.35, Glomerular Filtration Rate > 60.0, Magnesium Level 1.6L, Phosphorus Level 2.8 CBC/BMP Laboratory Tests 05/25/16 05:19 Anion Gap 9, Red Blood Count 3.42 L, Mean Corpuscular Volume 68.0 L, Mean Corpuscular Hemoglobin 20.3 L, Mean Corpuscular Hemoglobin Concent 29.9 L, Red Cell Distribution Width 16.6 H Microbiology Microbiology 05/23/16 Blood Culture - Preliminary, Resulted No growth after 24 hours . All specim... 05/23/16 Blood Culture - Preliminary, Resulted No growth after 24 hours . All specim... 05/23/16 Respiratory Virus Panel (PCR) ([facility]) - Final, Complete Influenza B MONIQUE AYALA DO May 25, 2016 12:20
[2016-05-25] MEDS: ACETAMINOPHEN TAB 650MG DOSE (2X325MG) PO PRN (16:35)
[2016-05-26] VITALS (17 sets, daily range): BP systolic 146–180; BP diastolic 72–78; O2SAT 91–99
[2016-05-26] MEDS: SLF 3 ML SYR IV SCH ×3 (05:36→21:25)
[2016-05-26 06:09] LABS: MEAN CORPUSCULAR HEMOGLOBIN 22.8 pg (27.0-33.0); MEAN CORPUSCULAR VOLUME 71.2 fl (80.0-96.0); RED CELL DISTRIBUTION WIDTH 17.5 % (11.5-14.5); WHITE BLOOD COUNT 4.6 K/mm3 (4.0-10.0)
[2016-05-26 06:10] LABS: ALBUMIN 2.7 GM/DL (3.2-5.2); ANION GAP 6 MEQ/L (8-16); BLOOD UREA NITROGEN 15 MG/DL (7-18); CALCIUM LEVEL 7.6 MG/DL (8.8-10.2); CARBON DIOXIDE LEVEL 31 MEQ/L (21-32); CHLORIDE LEVEL 105 MEQ/L (98-107); CREATININE FOR GFR 0.66 MG/DL (0.55-1.02); GLOMERULAR FILTRATION RATE > 60.0 (>39); GLUCOSE, FASTING 92 MG/DL (83-110); MAGNESIUM LEVEL 2.2 MG/DL (1.8-2.4); PHOSPHORUS LEVEL 3.1 MG/DL (2.5-4.9); POTASSIUM SERUM 3.6 MEQ/L (3.5-5.1); SODIUM LEVEL 142 MEQ/L (136-145)
[2016-05-26] MEDS: ADVAIR DISKUS 250/50 INH PWD INH SCH ×2 (07:47→21:19)
[2016-05-26] MEDS: CALCIUM CARBONATE 500 MG CHEW U/D PO SCH ×3 (09:19→21:25)
[2016-05-26] MEDS: AUGMENTIN 875 MG TAB PO SCH ×2 (09:19→21:24)
[2016-05-26] MEDS: LIOTHYRONINE 25 MCG TAB PO SCH (09:20)
[2016-05-26] MEDS: ROSUVASTATIN 10 MG TAB (CRESTOR) PO SCH (09:20)
[2016-05-26] MEDS: OMEPRAZOLE 20 MG CAP PO SCH (09:20)
[2016-05-26] MEDS: OYSTER SHELL CALCIUM 500 MG TAB PO SCH (09:20)
[2016-05-26] MEDS: MAGNESIUM OXIDE 400 MG TAB (MAG-OX) PO SCH ×2 (09:20→21:25)
[2016-05-26] MEDS: VITAMIN D 1,000 INTERNATIONAL UNITS TABLET PO SCH (09:21)
[2016-05-26] MEDS: LISINOPRIL 10 MG TAB PO SCH (09:21)
[2016-05-26] MEDS: ACETAMINOPHEN TAB 650MG DOSE (2X325MG) PO PRN (09:21)
[2016-05-26] MEDS: OSELTAMIVIR PHOSPHATE 30MG CAPSULE PO SCH ×2 (09:21→21:24)
[2016-05-26] MEDS: CALCITRIOL 0.25 MCG CAP (S0169) PO SCH (09:21)
--- NOTE | 2016-05-26 10:36 | IPN ---
DATE: 05/26/2016 SUBJECTIVE: This morning, the patient tells me that she continues to feel better. She denies any chest pain, nausea, vomiting, fevers, chills, weakness or muscle twitching or aching. OBJECTIVE: VITAL SIGNS: Temperature 98.2, pulse 74, respiratory rate 19, blood pressure 157/74, oxygen saturation 98% on 3 liters nasal cannula. GENERAL : She is a frail, elderly, female sitting up in bed. She is accompanied by her sister. The patient does not appear to be in any acute distress. HEENT: Cranial nerves II through XII are grossly intact. She has moist mucous membranes. No Chvostek sign. Her surgical site is healing. Her dressing is clean, dry and intact. She has moist mucous membranes. No elevation in central venous pressure. CARDIOVASCULAR EXAM: S1, S2, appears regular. RESPIRATORY EXAM: Fairly clear. ABDOMINAL EXAM: Benign. EXTREMITIES: No clubbing, cyanosis or edema. LABORATORY STUDIES: WBC 4.6, hemoglobin 9.3, up from 7, hematocrit 28.9, platelet count 133. Chemistry panel: Sodium 142, potassium 3.6 and repleted, chloride 105, bicarbonate 31, BUN 15, creatinine 0.6, calcium 7.6, albumin 2.7, free T4 is 1.35. Microbiology: The patient is positive for influenza B. No new imaging. ASSESSMENT AND PLAN: This is a 81-year-old female postoperative thyroidectomy. 1. Hypocalcemia, status post thyroidectomy. At the present time, she is on potassium supplementation. Her potassium appears to be remaining quite stable. She is on calcium carbonate 1 gram three times a day. She is also on magnesium repletion and Calcitriol. This may be some parathyroid stunting postoperative. We will continue her on these medications. Continue to monitor calcium. She would likely benefit from followup with her hat lining blocker, Dr. 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 The patient has been started on liothyronine. 2. Influenza B. Influenza B with PNEUMONIA, treated with Tamiflu and supplemental O2 The patient is on Tamiflu. Symptoms are improving. She still is significantly hypoxic; however, we are titrating down her oxygen. She does not appear to require 3 liters at this time. I have informed the nursing staff to discontinue this if possible and get her up and ambulating and check an ambulating oxygen saturation. Once the patient is able to ambulate on room air, I suspect that she can likely be dispositioned home at ENT discretion. 3. New onset atrial fibrillation. The patient, on her preoperative EKG, was in a sinus rhythm and postoperatively had been in atrial fibrillation without any rapid ventricular response. At the present time, she appears to be once again in a normal sinus rhythm. She may have briefly been in atrial fibrillation secondary to the stress of the procedure and her hypoxia related to the influenza. However, given that she is completely asymptomatic with this, she also may have a chronic paroxysmal atrial fibrillation where she is going in and out without knowing. At this time, it is impossible to tell. She does not require any rate controlling agents. At the present time, I would avoid starting any anticoagulation and recommend close followup with her primary care provider and consider cardiology referral with outpatient Holter monitoring. If she does have paroxysmal atrial fibrillation, could consider anticoagulation at that time. 4. Thalassemia minor. The patient's hemoglobin had been down trending. Given that she has had new onset atrial fibrillation and significant hypoxia in order to decrease the burden and body distress, she did receive 2 units of packed red blood cells with a positive response. We will simply continue to monitor. She will continue to followup with her outpatient provider regarding this as per usual. 5. Hypertension. The patient is on Lisinopril. 6. Gastroesophageal reflux disease (GERD). The patient is on omeprazole. 7. Dyslipidemia. The patient is on Crestor. 8. Chronic obstructive pulmonary disease (COPD). The patient is on Advair. We will continue to follow along with you regarding this patient. JENNIFER
--- NOTE | 2016-05-26 12:05 | ECHO ---
DATE OF PROCEDURE: 05/26/2016 REFERRING PHYSICIAN: Dr. Comer. INDICATIONS: Abnormal ECG and paroxysmal atrial fibrillation. HEIGHT: 64 inches. WEIGHT: 117 pounds. DIMENSIONS: IVS: 1.0 LV: 4.7 LVPW: 1.0 LA: 4.9 Aorta: 3.0 Ascending aorta: 3.0 RV: 2.4 FINDINGS: Study is of acceptable technical quality. Left ventricle is of normal size. There is a wall motion abnormality involving distal septum, apex, distal inferior wall and very distal anterior wall. These segments are approximately moderately hypokinetic. Overall left ventricular systolic function is only mildly reduced. I estimate ejection fraction (EF) around 50%. Right ventricle is not enlarged. Right apex and left atrium is at least mildly enlarged. Right atrium appears normal. Aortic valve is sclerotic but has preserved mobility. Mitral and tricuspid valves appear normal. Pulmonic valve was not well seen. Trivial pericardial effusion is noted. Inferior vena cava is normal size. Aortic root is normal. Aortic arch and abdominal aorta were not well seen. On some views, it appears that there is left pleural effusion. Doppler interrogation reveals no aortic insufficiency and trivial stenosis (peak gradient was only 10 mmHg). There is mild mitral insufficiency and trace tricuspid insufficiency. Calculated pulmonary artery pressure is in 30s corresponding to mild pulmonary hypertension. Mitral inflow pattern and tissue Doppler imaging of mitral annulus reveal grade 1 diastolic dysfunction. E prime velocity on septal mitral annulus is 8.0 and lateral mitral annulus 9.2 cm/sec. CONCLUSIONS: 1. Study is of acceptable technical quality. 2. Normal LV size with segmental wall motion abnormality as noted above and overall mildly reduced LV systolic function. Grade 1 diastolic dysfunction. 3. No hemodynamically significant valvular disease. 4. Normal central venous pressure. 5. Probably mild pulmonary hypertension. 6. Suggestive of left pleural effusion. COMMENT: Subacute bacterial endocarditis (SBE) prophylaxis is not recommended. The study looks suspicious for underlying coronary artery disease. MTDD
--- NOTE | 2016-05-26 20:27 | ECGEPIP ---
Stationary ECG Study [facility] Test Date: 2016-05-25 Pat Name: JACE BAH Department: Room: [place] [address] Gender: F Legal Research Analyst: NADEGE : 1935 Requested By: ELI VÁSQUEZ Order Number: [id number] Reading MD: Aditya Steel Measurements Intervals [place] Rate: 77 P: 54 MD: 244 QRS: -3 QRSD: 100 T: 45 QT: 365 QTc: 413 Interpretive Statements SINUS RHYTHM WITH FIRST DEGREE AV BLOCK SEPTAL MYOCARDIAL INFARCTION, PROBABLY OLD, CANNOT R/O SINCE 05/24/16 SINUS RHYTHM REPLACED ATRIAL FIBRILLATION Electronically Signed On 05-26-2016 20:27:27 EDT by Aditya Steel
[2016-05-27 03:15] VITALS: BP 161/77
[2016-05-27 05:50] LABS: MEAN CORPUSCULAR HEMOGLOBIN 22.5 pg (27.0-33.0); MEAN CORPUSCULAR HGB CONC 31.7 g/dl (32.0-36.5); MEAN CORPUSCULAR VOLUME 71.2 fl (80.0-96.0); RED CELL DISTRIBUTION WIDTH 17.7 % (11.5-14.5); WHITE BLOOD COUNT 6.9 K/mm3 (4.0-10.0)
[2016-05-27 05:55] LABS: ALBUMIN 2.9 GM/DL (3.2-5.2); ANION GAP 11 MEQ/L (8-16); BLOOD UREA NITROGEN 16 MG/DL (7-18); CALCIUM LEVEL 7.2 MG/DL (8.8-10.2); CARBON DIOXIDE LEVEL 28 MEQ/L (21-32); CHLORIDE LEVEL 104 MEQ/L (98-107); CREATININE FOR GFR 0.74 MG/DL (0.55-1.02); GLOMERULAR FILTRATION RATE > 60.0 (>39); GLUCOSE, FASTING 111 MG/DL (83-110); MAGNESIUM LEVEL 1.7 MG/DL (1.8-2.4); PHOSPHORUS LEVEL 2.6 MG/DL (2.5-4.9); POTASSIUM SERUM 3.5 MEQ/L (3.5-5.1); SODIUM LEVEL 143 MEQ/L (136-145)
[2016-05-27] MEDS: SLF 3 ML SYR IV SCH (06:10)
[2016-05-27] MEDS: ADVAIR DISKUS 250/50 INH PWD INH SCH (07:56)
[2016-05-27 08:00] VITALS: BP 134/80
[2016-05-27] MEDS: MAG SULF 1GM/100ML (MAG RUN) 1 GM in APPROPRIATE DILUENT 1 EA IV SCH ×3 (09:24→11:27)
[2016-05-27] MEDS: AUGMENTIN 875 MG TAB PO SCH (09:29)
[2016-05-27] MEDS: VITAMIN D 1,000 INTERNATIONAL UNITS TABLET PO SCH (09:30)
[2016-05-27] MEDS: ROSUVASTATIN 10 MG TAB (CRESTOR) PO SCH (09:31)
[2016-05-27] MEDS: MAGNESIUM OXIDE 400 MG TAB (MAG-OX) PO SCH (09:32)
[2016-05-27] MEDS: LIOTHYRONINE 25 MCG TAB PO SCH (09:33)
[2016-05-27] MEDS: CALCITRIOL 0.25 MCG CAP (S0169) PO SCH (09:33)
[2016-05-27] MEDS: OSELTAMIVIR PHOSPHATE 30MG CAPSULE PO SCH (09:33)
[2016-05-27 09:34] VITALS: BP 134/80
[2016-05-27] MEDS: LISINOPRIL 10 MG TAB PO SCH (09:34)
[2016-05-27] MEDS: CALCIUM CARBONATE 500 MG CHEW U/D PO SCH (09:35)
[2016-05-27 12:00] VITALS: BP 133/77
[2016-05-27] MEDS ORDERED: OSEL30CA PO (13:42)
[2016-05-27] MEDS ORDERED: CALC500C16 PO (13:42)
[2016-05-27] MEDS ORDERED: CYTO25TA PO (13:42)
[2016-05-27] MEDS ORDERED: CALC1CAP31 PO (13:42)
[2016-05-27] MEDS ORDERED: AMOX875T2 PO (13:42)
[2016-05-27] MEDS ORDERED: VITAD1000T PO (13:42)
[2016-05-27] MEDS ORDERED: MAG400TA PO (14:49)
--- NOTE | 2016-05-27 17:31 | IPNPDOC ---
Date Seen The patient was seen on 05/27/16. Progress Note Internal Medicine Progress Note Subjective: She is feeling quite well this morning, her shortness of breath has essentially resolved. She still does have a mild cough, however it is no longer productive, and she states that her laryngeal secretions are significantly improved. Otherwise, she has no additional complaints, and the remainder of her review of systems is negative. She is hopeful that she might be able to go home today. Objective: General: Awake, alert, oriented 3. Sitting upright in bed. HEENT: Head normocephalic, atraumatic, sclera are nonicteric. Hearing is grossly intact to conversation. Surgical site does appear to be clean, no surrounding erythema or discharge. Steri-Strips are in place. She does have a resolving bruise extending from her surgical site on the right anterior chest. Respiratory: clear to auscultation bilaterally with no appreciable wheezes, rales, or rhonchi. Cardiovascular: Regular rate and rhythm with no murmurs rubs or gallops. Abdomen: Soft, nontender, nondistended, no hepatosplenomegaly appreciated. Bowel sounds present. Extremities: 2+ pulses in the radial and dorsalis pedis bilaterally. No evidence of clubbing or cyanosis. Assessment/Plan: 1. Influenza B. Continue Tamiflu, influenza virus vaccine administered. She is saturating well on room air, and is not complaining of shortness of breath, recommend continuing Tamiflu upon discharge. 2. Electrolyte abnormalities. Hypokalemia, Hypomagnesemia, and hypocalcemia status post total thyroidectomy. Corrected calcium today is 8.1, this continues to be slightly low, but is still within the acceptable range, especially given the fact that she is asymptomatic. Continue with oral calcium to 1000 by mouth 3 times a day. Continue with magnesium 400 mg by mouth twice a day which we will likely have to continue for at least 1 month. Continue with vitamin D supplementation. I have called and spoken with the office of Dr. Millan for endocrinology, and they recommend follow-up within the next 2 weeks, they will call her tomorrow to schedule an appointment. From an internal medicine standpoint, she is stable for discharge at this time. 3. Papillary carcinoma of the thyroid. We will defer to ENT regarding her treatment, if she will not be scheduled for VERDE, recommend thyroid supplementation with Synthroid. If she will be scheduled for VERDE within the next 2-3 weeks now thyroid supplementation is recommended. She will be scheduled for VERDE but this will be beyond 2-3 weeks, recommend starting on liothyronine (T3) which is a short acting thyroid hormone 4. New onset afib. Now resolved. It is impossible to know whether she has chronic paroxysmal atrial fibrillation, or if this is only an acute event. Investigations have not yielded an exact etiology, however she has returned to sinus rhythm on her most recent EKG.. 5. Acute on chronic anemia. She does have a history of thalassemia. She was given 2 units of blood a few days ago, she has maintained a stable hemoglobin since that time. 6. Hypertension. Continue lisinopril 7. GERD. Continue home dose of omeprazole 8. Osteoporosis, vitamin D deficiency, low parathyroid hormone. Continue with calcium and vitamin D supplementation 9. Dyslipidemia. Continue Crestor 10. COPD. Continue with Advair Diskus. 11. DVT prophylaxis. Teds and sequentials. Disposition: The patient is stable for discharge at this time from an internal medicine standpoint. Please continue her on the same regimen of vitamins and electrolyte supplementation. Recommend follow-up with endocrinology within the next 2 weeks, their office is already aware and will call and schedule this appointment with the patient tomorrow. My preceptor for this patient encounter was physically present in the building during the encounter and was fully available. As needed, all aspects of the patient interview, examination, medical decision making process, and medical care plan development were reviewed and approved by the preceptor. Preceptor is aware and concurs with the plan as stated in the body of this note and will attest to such by his/her cosignature. VS, I&O, 24H, Fishbone Vital Signs/I&O Vital Signs Date Time Temp Pulse Resp B/P Pulse Ox O2 Delivery O2 Flow Rate FiO2 05/27/16 12:00 Room Air 05/27/16 12:00 98.0 83 18 133/77 93 05/26/16 12:00 3.0 05/23/16 08:00 60 I&O- Last 24 Hours up to 6 AM 05/27/16 05:59 Intake Total 1020 ml Output Total 1150 ml Balance -130 ml Laboratory Data 24H LABS Laboratory Tests 2 05/27/16 05:13: Albumin 2.9L, Blood Urea Nitrogen 16, Creatinine 0.74, Sodium Level 143, Potassium Level 3.5, Chloride Level 104, Carbon Dioxide Level 28, Anion Gap 11, Calcium Level 7.2L, Glomerular Filtration Rate > 60.0, Magnesium Level 1.7L, Phosphorus Level 2.6, Whole Blood Ionized Calcium 3.9L CBC/BMP Laboratory Tests 05/27/16 05:13 Anion Gap 11, Red Blood Count 4.61, Mean Corpuscular Volume 71.2 L, Mean Corpuscular Hemoglobin 22.5 L, Mean Corpuscular Hemoglobin Concent 31.7 L, Red Cell Distribution Width 17.7 H Microbiology Microbiology 05/23/16 Blood Culture - Preliminary, Resulted No Growth after 72 hours. All specime... 05/23/16 Blood Culture - Preliminary, Resulted No Growth after 72 hours. All specime... 05/23/16 Respiratory Virus Panel (PCR) ([facility]) - Final, Complete Influenza B MONIQUE AYALA DO May 27, 2016 17:31
--- NOTE | 2016-05-28 06:09 | RO ---
DATE OF PROCEDURE: 05/22/2016 PREOPERATIVE DIAGNOSIS: Left thyroid lesion. POSTOPERATIVE DIAGNOSES: Left thyroid lesion and left papillary thyroid carcinoma. PROCEDURE: 1. Total thyroidectomy. 2. Intraoperative NIM3 nerve monitoring. 3. Flexible laryngoscopy. SURGEON: Lawrence Comer MD BOILERMAKER APPRENTICE: Ricardo Valente MD, and PEG Sterling. ANESTHESIA: General with use of paralytic. CLINICAL PREAMBLE: This 81-year-old woman was noted to have a mass in the left thyroid lobe. Fine-needle aspiration (FNA) of the mass revealed atypical cytology suspicious for follicular variant of the papillary thyroid carcinoma. Management options including thyroid lobectomy with possible total thyroidectomy have been discussed. Patient understood and consented to the procedures listed above. DESCRIPTION OF PROCEDURE: Patient was identified in preoperative holding and had the left neck marked. She was brought to the operating room in stable condition. In supine position on the operating table, patient received general anesthesia followed by orotracheal intubation with the NIM3 compatible endotracheal tube without incident. Patient prepped and draped in the usual fashion for the procedure. The ground wires were inserted to the sternal region. The ground wires and the test wires were successfully connected to the NIM3 with good electrical signal output. Shoulder roll was placed. At this time, patient was then prepped and draped in the usual fashion for the procedure. A curvilinear incision was outlined in the lower third of the neck. Incision was made through the skin and subcutaneous tissue and the platysma. The strap muscles were identified and retracted laterally to allow exposure of the thyroid gland. The left thyroid lobe was then carefully dissected along its capsular plane. The inferior vascular pedicle was identified and ligated using the harmonic scalpel. The superior pedicle of the left thyroid lobe was also successfully identified and ligated. The left thyroid vein was also similarly identified and ligated. The superior inferior left parathyroid glands were identified and preserved. The recurrent laryngeal nerve was identified in the tracheoesophageal groove. Dissection along the nerve was carried out into the insertion point into the cricothyroid muscle area. The isthmus was then divided. The specimen was then sent out for intraoperative frozen section. The left thyroid lesion was confirmed to be papillary thyroid carcinoma. At this time, a palpable right thyroid mass was noted. Decision was to perform total thyroidectomy at this time due to the presence of contralateral right thyroid mass as well. The Samaniego's ligament was dissected off from the anterior tracheal wall. The right inferior vascular pedicle was identified and ligated. The superior vascular pedicle was similarly identified and ligated as well. The right recurrent laryngeal nerve was identified in the tracheoesophageal groove. Dissection was then carried out to free the right thyroid lobe from trachea. The recurrent laryngeal nerve was dissected superiorly to its insertion point into the laryngeal muscles. The right thyroid lobe was sent to pathology in a separate container. At this time, hemostasis was achieved using bipolar electrocautery. The recurrent laryngeal nerves were protected by placing a Surgicel. The Alexx powder was applied to the thyroid bed region. The strap muscles were reapproximated in the midline. The final skin closure was achieved using two-layer closure technique. #3-0 Vicryl was used to reapproximate the platysma muscle. #5-0 Monocryl was used to reapproximate the skin layer. Steri-Strips were then applied followed by application of Tegaderm. At the end of the procedure, patient was successfully extubated without incident. Upon immediate extubation, flexible laryngoscopy was performed. All vocal cords were visualized and found to be mobile with symmetrical motion. The patient was then successfully transferred to recovery area with no evidence of stridor or other respiratory distress.
== END 2016-05-27 15:45 | disposition home or self-care (01) | DRG 625 ==
LOC: M SDC 10:31 → M RR INP 16:50 → UNDOADMIN 17:24 → M RR INP 17:24 → M PCU 18:45
PROVIDERS: ADMIT Otolaryngology; ATTEND Otolaryngology
PROC: 0CJS8ZZ Inspection of Larynx, Via Natural or Artificial Opening Endoscopic (ICD-10-PCS; 2016-05-22)
PROC: 0GTK0ZZ Resection of Thyroid Gland, Open Approach (ICD-10-PCS; principal; 2016-05-22 12:15)
PROC: 30233N1 Transfusion of Nonautologous Red Blood Cells into Peripheral Vein, Percutaneous Approach (ICD-10-PCS; 2016-05-25)
DX: C73 Malignant neoplasm of thyroid gland (principal); J11.00 Influenza due to unidentified influenza virus with unspecified type of pneumonia; D56.3 Thalassemia minor; I65.23 Occlusion and stenosis of bilateral carotid arteries; J44.9 Chronic obstructive pulmonary disease, unspecified; I12.9 Hypertensive chronic kidney disease with stage 1 through stage 4 chronic kidney disease, or unspecified chronic kidney disease; E83.51 Hypocalcemia; E87.6 Hypokalemia; E83.42 Hypomagnesemia; I48.91 Unspecified atrial fibrillation; M81.0 Age-related osteoporosis without current pathological fracture; E55.9 Vitamin D deficiency, unspecified; K21.9 Gastro-esophageal reflux disease without esophagitis; N18.3 Chronic kidney disease, stage 3 (moderate); E78.5 Hyperlipidemia, unspecified; Z79.82 Long term (current) use of aspirin; Z79.899 Other long term (current) drug therapy; Z80.9 Family history of malignant neoplasm, unspecified

== ENCOUNTER → 2016-05-29 | Outpatient (CLI) | payer MEDICARE, MEDICAID ==
[~2016-05-29] MED LIST changes: +AMOX875T2 PO; +CALC1CAP31 PO; +CALC500C16 PO; +CYTO25TA PO; +MAG400TA PO; +OSEL30CA PO; +VITAD1000T PO
[2016-05-29 10:52] LABS: IONIZED CALCIUM 4.1 MG/DL (4.5-5.3)
[2016-05-29 11:03] LABS: MEAN CORPUSCULAR HEMOGLOBIN 22.6 pg (27.0-33.0); MEAN CORPUSCULAR HGB CONC 31.6 g/dl (32.0-36.5); MEAN CORPUSCULAR VOLUME 71.3 fl (80.0-96.0); RED CELL DISTRIBUTION WIDTH 18.2 % (11.5-14.5); WHITE BLOOD COUNT 7.7 K/mm3 (4.0-10.0)
[2016-05-29 11:23] LABS: ANION GAP 11 MEQ/L (8-16); BLOOD UREA NITROGEN 29 MG/DL (7-18); CALCIUM LEVEL 8.1 MG/DL (8.8-10.2); CARBON DIOXIDE LEVEL 30 MEQ/L (21-32); CHLORIDE LEVEL 106 MEQ/L (98-107); CREATININE FOR GFR 0.92 MG/DL (0.55-1.02); GLOMERULAR FILTRATION RATE > 60.0 (>39); GLUCOSE, FASTING 118 MG/DL (83-110); MAGNESIUM LEVEL 1.9 MG/DL (1.8-2.4); PHOSPHORUS LEVEL 3.6 MG/DL (2.5-4.9); POTASSIUM SERUM 3.3 MEQ/L (3.5-5.1); SODIUM LEVEL 147 MEQ/L (136-145)
== END ==
LOC: M LAB 10:16
PROVIDERS: ATTEND Otolaryngology
DX: E83.51 Hypocalcemia (principal); C73 Malignant neoplasm of thyroid gland

== ENCOUNTER → 2016-06-11 | Outpatient (CLI) | payer MEDICARE, MEDICAID | LOC: M LAB 16:48 | PROVIDERS: ATTEND Internal Medicine Endocrinology, Diabetes & Metabolism | DX: C73 Malignant neoplasm of thyroid gland (principal) ==

== ENCOUNTER → 2016-06-24 | Outpatient (REF) | payer MEDICARE, MEDICAID | LOC: M LABDRAW1 11:26 | PROVIDERS: ATTEND Internal Medicine Endocrinology, Diabetes & Metabolism | DX: C73 Malignant neoplasm of thyroid gland (principal) ==

== ENCOUNTER → 2016-07-01 | Outpatient (CLI) | payer MEDICARE, MEDICAID | LOC: M LAB 09:39 | PROVIDERS: ATTEND Internal Medicine Endocrinology, Diabetes & Metabolism | DX: C73 Malignant neoplasm of thyroid gland (principal) ==

== ENCOUNTER → 2016-07-01 | Outpatient (CLI) | payer MEDICARE, MEDICAID ==
[2016-07-01 09:59] LABS: IONIZED CALCIUM 4.6 MG/DL (4.5-5.3)
== END ==
LOC: M LAB 09:42
PROVIDERS: ATTEND Physician Assistant Medical
DX: C73 Malignant neoplasm of thyroid gland (principal)

== ENCOUNTER → 2016-07-12 | Outpatient (REF) | payer MEDICARE, MEDICAID | LOC: M LABDRAW1 15:40 | PROVIDERS: ATTEND Internal Medicine Endocrinology, Diabetes & Metabolism | DX: C73 Malignant neoplasm of thyroid gland (principal) ==

== ENCOUNTER → 2016-08-01 | Outpatient (REF) | payer MEDICARE, MEDICAID ==
[~2016-08-01] MED LIST changes: +FERR325T3 PO; +IMODLIQ6 PO; +LEVO100T5; +LEVO100T5 PO; +LISI40TAB PO; +MAGN400T2 PO; +OMEP20CA3 PO; +OYSCTAB; +OYSCTAB PO
== END ==
LOC: M LAB REF 11:28
PROVIDERS: ATTEND Nurse Practitioner Adult Health
DX: D64.9 Anemia, unspecified (principal)

== ENCOUNTER 2016-08-12 11:46 | Inpatient (IN) | payer MEDICARE, MEDICAID ==
[~2016-08-12] VITALS: Ht 154.9 cm; Wt 46.2 kg
[~2016-08-12 11:46] MED LIST changes: -CYTO25TA PO; +CYTO25TA6 PO; -FERR325T3 PO; -IMODLIQ6 PO; -LEVO100T5; -LEVO100T5 PO; -LISI40TAB PO; -MAGN400T2 PO; -OMEP20CA3 PO; -OYSCTAB; -OYSCTAB PO
[2016-08-12] MEDS ORDERED: LEVO100T5 (12:02)
[2016-08-12] MEDS ORDERED: ADV250INH INH (12:02)
[2016-08-12] MEDS ORDERED: OYSCTAB (12:02)
[2016-08-12] MEDS ORDERED: FERR325T3 PO ×2 (12:02→14:05)
[2016-08-12 12:37] LABS: INR 1.27
[2016-08-12 12:48] LABS: BASO % 0.1 % (0.0-1.0); EOS % 0.2 % (0.0-3.0); LARGE UNSTAINED CELL # 0.4 K/mm3 (0.0-0.4); LARGE UNSTAINED CELL % 3.1 % (0.0-4.0); LYMPH # 1.8 K/mm3 (1.5-4.5); LYMPH % 10.9 % (24.0-44.0); MEAN CORPUSCULAR HEMOGLOBIN 21.1 pg (27.0-33.0); MEAN CORPUSCULAR HGB CONC 30.5 g/dl (32.0-36.5); MEAN CORPUSCULAR VOLUME 69.4 fl (80.0-96.0); MONO # 0.6 K/mm3 (0.0-0.8); MONO % 4.7 % (0.0-5.0); NEUTROPHILS # 10.5 K/mm3 (1.8-7.7); NEUTROPHILS % 80.9 % (36.0-66.0); PLATELET COUNT, AUTOMATED 385 k/mm3 (150-450); RED CELL DISTRIBUTION WIDTH 17.9 % (11.5-14.5)
[2016-08-12 12:52] LABS: ADD MORPHOLOGY? YES
[2016-08-12 13:07] LABS: ALBUMIN 1.9 GM/DL (3.2-5.2); ALBUMIN/GLOBULIN RATIO 0.5 (1.00-1.93); BILIRUBIN,DIRECT 0.2 MG/DL (0.0-0.2); BILIRUBIN,TOTAL 0.5 MG/DL (0.2-1.0); CALCIUM LEVEL 6.3 MG/DL (8.8-10.2); CREATININE FOR GFR 1.9 MG/DL (0.55-1.02); GLOMERULAR FILTRATION RATE 27.1 (>39); POTASSIUM SERUM 4.3 MEQ/L (3.5-5.1); TOTAL PROTEIN 5.7 GM/DL (6.4-8.2)
--- NOTE | 2016-08-12 13:13 | REP ---
Clinical: Cough and syncope. Technique: PA and lateral. Comparison: 08/02/2016. Findings: Left lower lobe consolidation and small left pleural effusion increased from prior examination. Mediastinum and cardiac silhouette normal. Remainder of lung bains demonstrate chronic stable changes. Skeletal structures are intact. Impression: Left lower lobe consolidation and small pleural effusion. Follow-up to resolution recommended. Signed by Zeb Barrientos MD 08/12/2016 01:05 P
[2016-08-12 13:24] LABS: ANISOCYTOSIS 1+; HYPOCHROMASIA 2+; MICROCYTOSIS 3+; OVALOCYTES 1+
[2016-08-12 13:25] LABS: POIKILOCYTOSIS 1+
[2016-08-12] MEDS ORDERED: cefTRIAXone SOD 2 GM in D5W MINI-BAG PLUS 50 ML IV ONE (13:45)
[2016-08-12] MEDS ORDERED: AZITHROMYCIN INJ 500 MG, VIAL MATE ADAPTER 1 EACH in D5W 250 ML IV ONE (13:45)
[2016-08-12] MEDS ORDERED: MAGN400T2 PO (14:05)
[2016-08-12] MEDS ORDERED: LISI40TAB PO (14:05)
[2016-08-12] MEDS ORDERED: ASPI1TAB PO (14:05)
[2016-08-12] MEDS ORDERED: OYSCTAB PO (14:05)
[2016-08-12] MEDS ORDERED: OMEP20CA3 PO (14:05)
[2016-08-12] MEDS ORDERED: IMODLIQ6 PO (14:07)
[2016-08-12] MEDS ORDERED: LEVO100T5 PO (14:16)
[2016-08-12] MEDS ORDERED: ACETAMINOPHEN TAB 650MG DOSE (2X325MG) PO PRN (15:45)
[2016-08-12] MEDS ORDERED: OMEPRAZOLE 20 MG CAP PO ONE (16:15)
[2016-08-12] MEDS ORDERED: ASPIRIN 81 MG CHEW TABLET PO ONE (16:15)
[2016-08-12] MEDS: NS 1,000 ML IV SCH (16:34)
--- NOTE | 2016-08-12 16:54 | HPE ---
DATE OF ADMISSION: 08/12/2016 A 81-year-old white female who presented to the emergency room following an episode of syncope this morning. She was apparently walking in her kitchen when she fell. She was only out briefly. No seizure activity noted. The patient underwent a total thyroidectomy in May of this year for papillary cell carcinoma. Since that time she has had problems swallowing. She has also had diarrhea and significant weight loss. She has also had difficulty swallowing and has had a loose productive cough. Her electrocardiogram in the emergency room shows the loss of an R-wave and AVR compared to prior. She has had previous echoes, which have shown some wall motion abnormalities. Cardiac enzymes, of course, will be checked. I believe she probably has hypoparathyroidism from her thyroid surgery. She is on calcium at home. Her calcium level when she came in was 6.3. Her albumin is also low. Her corrected calcium would be about 7.1. She has a history of chronic anemia, which is worse than baseline. She does have thalassemia trait. She does have microcytic indices. She has had no blood in her stool that she has noted. Her last colonoscopy, in fact, she had upper and lower in 2002. 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 Her colonoscopy was unremarkable. She has not been eating well, and she has had diarrhea. She is taking poorly by mouth. Her BUN and creatinine are elevated from baseline at 70 and 1.9. Of course, if she her albumin would even be lower. BUN and creatinine on the May 29 were such that her glomerular filtration rate (GFR) was 60. Regarding her productive cough, she had a chest x-ray which showed left lower lobe infiltrate. She is being admitted with left lower lobe pneumonia, dehydration, acute renal failure, hypocalcemia. Blood transfusion has been consented for in the emergency room (ER). MEDICATIONS: - Crestor 5 mg a day - vitamin D 2000 units a day - She has been on Advair 250/50 twice a day. - omeprazole 20 mg a day - lisinopril 40 mg a day - Os-Anthony 500 mg twice a day - baby aspirin - ferrous sulfate 325 mg a day - Lomotil - Synthroid 100 mcg a day ALLERGIES: No known allergies. PAST MEDICAL HISTORY: Papillary carcinoma of the thyroid. She has a history of abnormal mammogram and follows with Dr. Mcdonald regarding the left breast. Thalassemia trait. History of hypertension, hyperlipidemia, osteoporosis with prior fracture, gastroesophageal reflux disease (GERD)/Cote's, thyroidectomy for thyroid cancer, possible hypoparathyroidism. Also, she has a history of asthma and previous cataract surgery. FAMILY HISTORY: As previously dictated. SOCIAL HISTORY: She has had Pneumovax. No alcohol or tobacco. FAMILY HISTORY: Noted to be irrelevant. REVIEW OF SYSTEMS: General: She has had weight loss. HEENT: Difficulties swallowing. Cardiopulmonary: Cough and congestion, shortness of breath. GI: Diarrhea since her thyroidectomy. : Negative. Musculoskeletal: Generalized weakness. Vascular: Negative. Hematologic: Anemia as noted. Chronic thalassemia. Psychiatric: Negative. Dermatologic: She has a bruise on her right hip where she fell this morning.. PHYSICAL EXAMINATION: Blood pressure is 90/50. No orthostasis. Pulse is 80. Respiratory rates is 16, temperature afebrile. General appearance: Cachectic-appearing elderly female. HEENT: Pupils are equal. Sclerae anicteric. Conjunctivae without injection. Oropharynx: She wears dentures. Neck is supple. Carotids are normal. No bruits. No jugular venous distention (JVD). Heart: Was regular. No murmurs. Chest is clear to auscultation. Diminished breath sounds left base. She does have a loose cough. Abdomen is benign. No masses or hepatosplenomegaly. Rectal: There was no stool in the rectal vault. Smear was Hematest negative. Extremities: No edema. She has a bruise on her right hip from where she fell. Neurologic: Intact. DATABASE: Electrocardiogram shows loss of R-wave and a first-degree block. Loss of R-wave is new since May. BUN and creatinine are 70 and 1.9. Calcium is 6.3. Albumin is 1.9, corrected calcium would be at least 7.1. Hematocrit is 22. She normally run high 20s. IMPRESSION/PLAN: 1. Left lower lobe pneumonia. 2. Dehydration with acute renal failure. 3. Difficulties with swallowing since her thyroidectomy. Will put her on puree diet. She needs a swallowing evaluation. 4. Diarrhea. This has been present since her hospitalization. Will check a GI panel. 5. Syncope. Possibly secondary to dehydration. She has had a change in her electrocardiogram since May. Will check cardiac enzymes. 6. Probable hypoparathyroid. Checking PTH. Continue vitamin D and calcium Old record notes paroxysmal atrial fibrillation (PAF). I do not see any indication of that. I see it is an indication for an echo in May of 2016. She is certainly not in PAF at present, and she is not anticoagulated. 7. Asthma. 8. Gastroesophageal reflux disease with remote EGD with Cote's. 9. History of hypertension. Lisinopril on hold with relative hypotension and renal failure. 10. Lipids. She is on Crestor. 11. Osteoporosis with prior fracture.
[2016-08-12 17:20] VITALS: BP 118/77
[2016-08-12 18:05] LABS: IONIZED CALCIUM 3.5 MG/DL (4.5-5.3)
[2016-08-12 18:45] LABS: MAGNESIUM LEVEL 1.1 MG/DL (1.8-2.4); PERCENT SATURATION 38.6 % (13.2-37.4); TOTAL IRON BINDING CAPACITY 101 UG/DL (250-450)
[2016-08-12] MEDS ORDERED: CALCIUM GLUCONATE 1,000 MG in D5W MINI-BAG PLUS 100 ML IV ONE (18:45)
[2016-08-12 19:07] LABS: FERRITIN 2572 NG/ML (8-252)
[2016-08-12 19:48] VITALS: BP 112/53
[2016-08-12] MEDS: IPRATROPIUM 0.5MG/ALBUTEROL 2.5MG INH SOL UD 3ML (DUONEB)(J7620) NEB SCH (20:00)
--- NOTE | 2016-08-12 20:04 | ECGEPIP ---
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
[2016-08-12] MEDS: OYSTER SHELL CALCIUM 500 MG TAB PO SCH (20:07)
[2016-08-12] MEDS: HEPARIN SOD (PORCINE) 5000 UNITS/ML VIAL SC SCH (20:07)
[2016-08-12] MEDS: MAG SULF 1GM/100ML (MAG RUN) 1 GM in APPROPRIATE DILUENT 1 EA IV SCH ×2 (20:08→21:18)
[2016-08-12] MEDS: ADVAIR DISKUS 250/50 INH PWD INH SCH (20:53)
[2016-08-12 23:59] VITALS: BP 104/53
[2016-08-13] VITALS (8 sets, daily range): BP systolic 103–146; BP diastolic 53–61; PULSE 88
[2016-08-13] MEDS: IPRATROPIUM 0.5MG/ALBUTEROL 2.5MG INH SOL UD 3ML (DUONEB)(J7620) NEB SCH ×4 (01:21→20:00)
[2016-08-13] MEDS: LEVOTHYROXINE 100MCG TABLET (0.1MG) PO SCH (05:48)
[2016-08-13] MEDS: NS 1,000 ML IV SCH ×3 (05:48→19:19)
[2016-08-13 06:20] LABS: BASO % 0.3 % (0.0-1.0); EOS % 0.5 % (0.0-3.0); LARGE UNSTAINED CELL # 0.2 K/mm3 (0.0-0.4); LARGE UNSTAINED CELL % 2.7 % (0.0-4.0); LYMPH # 1.4 K/mm3 (1.5-4.5); LYMPH % 12.6 % (24.0-44.0); MEAN CORPUSCULAR HEMOGLOBIN 24.2 pg (27.0-33.0); MEAN CORPUSCULAR HGB CONC 31.7 g/dl (32.0-36.5); MONO # 0.5 K/mm3 (0.0-0.8); NEUTROPHILS % 78.8 % (36.0-66.0); WHITE BLOOD COUNT 8.9 K/mm3 (4.0-10.0)
[2016-08-13 06:24] LABS: ALBUMIN 1.7 GM/DL (3.2-5.2); ALBUMIN/GLOBULIN RATIO 0.52 (1.00-1.93); ALT/SGPT 11 U/L (12-78); ANION GAP 11 MEQ/L (8-16); AST/SGOT 16 U/L (15-37); BILIRUBIN,TOTAL 0.3 MG/DL (0.2-1.0); BLOOD UREA NITROGEN 54 MG/DL (7-18); CALCIUM LEVEL 6.4 MG/DL (8.8-10.2); CARBON DIOXIDE LEVEL 20 MEQ/L (21-32); CHLORIDE LEVEL 114 MEQ/L (98-107); CREATININE FOR GFR 1.22 MG/DL (0.55-1.02); GLOMERULAR FILTRATION RATE 45.3 (>39); GLUCOSE, FASTING 81 MG/DL (83-110); POTASSIUM SERUM 4.2 MEQ/L (3.5-5.1); SODIUM LEVEL 145 MEQ/L (136-145)
[2016-08-13 06:25] LABS: ALKALINE PHOSPHATASE 80 U/L (45-117)
[2016-08-13 06:27] LABS: MEAN CORPUSCULAR VOLUME 76.6 fl (80.0-96.0); PLATELET COUNT, AUTOMATED 226 k/mm3 (150-450)
[2016-08-13] MEDS: ADVAIR DISKUS 250/50 INH PWD INH SCH ×2 (07:49→19:57)
[2016-08-13] MEDS ORDERED: CALCIUM GLUCONATE 1,000 MG in D5W MINI-BAG PLUS 100 ML IV ONE ×2 (08:00→09:00)
[2016-08-13] MEDS ORDERED: CALCITRIOL 0.25 MCG CAP (S0169) PO SCH (09:00)
[2016-08-13] MEDS: HEPARIN SOD (PORCINE) 5000 UNITS/ML VIAL SC SCH ×2 (09:53→20:54)
[2016-08-13] MEDS: CALCIUM CARBONATE 500 MG CHEW U/D PO SCH ×3 (09:53→20:54)
[2016-08-13] MEDS: OYSTER SHELL CALCIUM 500 MG TAB PO SCH ×2 (09:53→20:53)
[2016-08-13] MEDS: CALCITRIOL 0.25 MCG CAP (S0169) PO SCH ×2 (09:53→20:53)
[2016-08-13] MEDS ORDERED: E-Z-PAQUE 96% w/w SUSP 176GM BTL As Ordered ONE (10:11)
[2016-08-13] MEDS ORDERED: VARIBAR PUDDING 40% w/v 230ML TUBE As Ordered ONE (10:11)
[2016-08-13] MEDS ORDERED: VARIBAR NECTAR 40% w/v 240ML SUSP BTL As Ordered ONE (10:11)
[2016-08-13] MEDS: cefTRIAXone SOD 1 GM in D5W MINI-BAG PLUS 50 ML IV SCH (13:40)
[2016-08-13] MEDS ORDERED: AZITHROMYCIN INJ 500 MG, VIAL MATE ADAPTER 1 EACH in D5W 250 ML IV SCH (14:00)
[2016-08-13 14:42] LABS: BASO % 0.2 % (0.0-1.0); EOS % 0.3 % (0.0-3.0); LARGE UNSTAINED CELL # 0.2 K/mm3 (0.0-0.4); LARGE UNSTAINED CELL % 1.9 % (0.0-4.0); LYMPH # 1.3 K/mm3 (1.5-4.5); LYMPH % 10.8 % (24.0-44.0); MEAN CORPUSCULAR HEMOGLOBIN 24.6 pg (27.0-33.0); MEAN CORPUSCULAR HGB CONC 32.3 g/dl (32.0-36.5); MONO # 0.4 K/mm3 (0.0-0.8); MONO % 4.1 % (0.0-5.0); NEUTROPHILS # 8.7 K/mm3 (1.8-7.7); NEUTROPHILS % 82.7 % (36.0-66.0); PLATELET COUNT, AUTOMATED 291 k/mm3 (150-450); RED CELL DISTRIBUTION WIDTH 20.3 % (11.5-14.5); WHITE BLOOD COUNT 10.5 K/mm3 (4.0-10.0)
--- NOTE | 2016-08-13 15:05 | IPNPDOC ---
Text Note Date of Service The patient was seen on 08/13/16. NOTE Subjective: Patient is a 81 year old female with a PMHx of Papillary thyroid cancer (s/p thyroidectomy 05/2016), Asthma, Abnormal mammogram (follows with Dr. Mcdonald), Thalassemia trait, HTN, DLP, Osteoporosis (w/ history of fractures) and GERD / Cote's esophagus who presented to the ER with complaints of passing out 08/12 morning. She was walking to her kitchen and passed out. Upon arrival to the ER she was found to have JOAN, Anemia, Hypocalcemia and a developing infiltrate on CXR. She was admitted to telemetry. Patient was seen and examined at the bedside. She notes that this morning she is feeling better than before. She still does not feel like she is back to normal yet. Objective: Vitals (See below) General: Lying in bed, no acute distress, comfortable, AAOx3 HEENT: NC, AT CVS: RRR, +S1S2 Lungs: Fair air entry b/l, no appreciable wheezing / rales / rhonchi Abdomen: Soft, ND, NT, +BSx4 Extremities: +PPx4, - Edema, - Calf tenderness Assessment and plan: 1. Syncope - possibly 2/2 multifactorial etiology 2/2 anemia, dehydration, infection 2/2 community acquired pneumonia, less likely cardiac related, less likely neurogenic - Presented after she collapsed at home while ambulating - Physical dose not reveal anything specific; may appear hypo-volemic - Labs reveals above - EKG with 1st degree AV block, T wave flattening on Lead aVL - Troponin first set negative - Will check ECHO - Will keep on telemetry monitoring 2. Acute on chronic microcytic anemia - likely 2/2 thalassemia trait and component of anemia of chronic disease - Hg baseline of 10 - No overt signs of bleeding - Occult blood negative - Presented to the ER with Hg of 6.9 - Has had colonoscopy and EGD in 2008; colonoscopy reported normal and EGD with Cote's esophagus - s/p 2 units PRBC transfusion 3. Acute kidney injury - likely 2/2 pre-renal etiology 2/2 dehydration - Cr baseline of 0.6-0.9 - Presented with Cr of 1.9 - c/w IV fluid hydration; will reduce rate and stop after 1 additional liter 4. Community acquire pneumonia - Presented with mild cough - Physical does not reveal any rhonchi - Blood cultures show no growth at 24 hours - CXR 08/12: LLL consolidation and small pleural effusion - c/w Ceftriaxone and Azithromycin (Day #2) 5. 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 History of paroxysmal atrial fibrillation - currently not on rate control or anticoagulation - c/w ASA 81 7. Asthma - c/w Advair and Duoneb PRN 8. DLP - c/w Rosuvastatin 9. HTN - Lisinopril on hold (re: JOAN) 10. Hypothyroidism - c/w Levothyroxine at current dose - Dose has not been adjusted since surgical procedure - TSH is depressed; likely intentionally given history of cancer 11. Osteoporosis 12. GERD / Octe's esophagus - will need outpatient follow up - c/w omeprazole 13. DVT prophylaxis - c/w Heparin VS,Fishbone, I+O VS, Fishbone, I+O Laboratory Tests 08/13/16 05:30 Red Blood Count 3.64 L, Mean Corpuscular Volume 76.6 #L, Mean Corpuscular Hemoglobin 24.2 L, Mean Corpuscular Hemoglobin Concent 31.7 L, Red Cell Distribution Width 20.0 H, Neutrophils (%) (Auto) 78.8 H, Lymphocytes (%) (Auto ) 12.6 L, Monocytes (%) (Auto) 5.0, Eosinophils (%) (Auto) 0.5, Basophils (%) ( Auto) 0.3, Neutrophils # (Auto) 7.0, Lymphocytes # (Auto) 1.4 L, Monocytes # ( Auto) 0.5, Eosinophils # (Auto) 0.0, Basophils # (Auto) 0.0, Calcium Level 6.4 L , Aspartate Amino Transf (AST/SGOT) 16, Alanine Aminotransferase (ALT/SGPT) 11 L , Alkaline Phosphatase 80, Total Bilirubin 0.3, Total Protein 5.0 L, Albumin 1.7 L Vital Signs Date Time Temp Pulse Resp B/P (MAP) Pulse Ox O2 Delivery O2 Flow Rate FiO2 08/13/16 12:00 97.9 87 20 129/58 (81) 98 Room Air I&O- Last 24 Hours up to 6 AM 08/13/16 06:00 Intake Total 714 ml Output Total 100 ml Balance 614 ml JENIFFER STALLWORTH MD Aug 13, 2016 14:53
[2016-08-13 15:25] LABS: ALBUMIN 1.8 GM/DL (3.2-5.2); ALBUMIN/GLOBULIN RATIO 0.5 (1.00-1.93); BILIRUBIN,TOTAL 0.3 MG/DL (0.2-1.0); CALCIUM LEVEL 7.3 MG/DL (8.8-10.2); CREATININE FOR GFR 1.22 MG/DL (0.55-1.02); GLOMERULAR FILTRATION RATE 45.3 (>39); MAGNESIUM LEVEL 1.6 MG/DL (1.8-2.4); POTASSIUM SERUM 4.2 MEQ/L (3.5-5.1); TOTAL PROTEIN 5.4 GM/DL (6.4-8.2)
[2016-08-13] MEDS ORDERED: MAG SULF 1GM/100ML (MAG RUN) 1 GM in APPROPRIATE DILUENT 1 EA IV ONE (15:30)
[2016-08-13] MEDS ORDERED: NS 500 ML IV ONE (17:00)
--- NOTE | 2016-08-13 17:09 | REP ---
COOKIE SWALLOW: The procedure was performed by MALIKA Nicole under the direct supervision of Dr. Pradhan, along with Aleksnadra Olmedo from speech pathology. Barium in various consistencies were given to the patient to swallow under fluoroscopy. These consisted of nectar, pudding, solid and thin. No penetration was observed during the procedure. Full report from speech pathology to follow. Reviewed by MALIKA Reese 08/14/2016 02:36 PEdited and Signed by Saul Pradhan MD 08/14/2016 03:25 P
[2016-08-13] MEDS ORDERED: SODIUM CHLORIDE 0.9% 1000 ML IV ONE (17:15)
[2016-08-13] MEDS: ROSUVASTATIN 10 MG TAB (CRESTOR) PO SCH (20:54)
[2016-08-14] VITALS (7 sets, daily range): BP systolic 102–118; BP diastolic 57–69; PULSE 80–83
[2016-08-14] MEDS: IPRATROPIUM 0.5MG/ALBUTEROL 2.5MG INH SOL UD 3ML (DUONEB)(J7620) NEB SCH ×4 (01:15→19:37)
[2016-08-14 05:19] LABS: BASO % 0.2 % (0.0-1.0); EOS # 0.1 K/mm3 (0.0-0.50); EOS % 0.5 % (0.0-3.0); LARGE UNSTAINED CELL # 0.3 K/mm3 (0.0-0.4); LARGE UNSTAINED CELL % 2.4 % (0.0-4.0); LYMPH # 1.8 K/mm3 (1.5-4.5); LYMPH % 13.9 % (24.0-44.0); MEAN CORPUSCULAR HEMOGLOBIN 24.7 pg (27.0-33.0); MEAN CORPUSCULAR HGB CONC 32.5 g/dl (32.0-36.5); MONO # 0.5 K/mm3 (0.0-0.8); MONO % 3.9 % (0.0-5.0); NEUTROPHILS # 10.4 K/mm3 (1.8-7.7); NEUTROPHILS % 79.1 % (36.0-66.0); PLATELET COUNT, AUTOMATED 309 k/mm3 (150-450); RED CELL DISTRIBUTION WIDTH 20.1 % (11.5-14.5); WHITE BLOOD COUNT 13.2 K/mm3 (4.0-10.0)
[2016-08-14 05:34] LABS: ALBUMIN 1.7 GM/DL (3.2-5.2); ALBUMIN/GLOBULIN RATIO 0.45 (1.00-1.93); BILIRUBIN,TOTAL 0.4 MG/DL (0.2-1.0); CREATININE FOR GFR 1.06 MG/DL (0.55-1.02); GLOMERULAR FILTRATION RATE 53.2 (>39); TOTAL PROTEIN 5.5 GM/DL (6.4-8.2)
[2016-08-14] MEDS: LEVOTHYROXINE 100MCG TABLET (0.1MG) PO SCH (05:48)
[2016-08-14] MEDS: NS 1,000 ML IV SCH (05:48)
[2016-08-14] MEDS ORDERED: LEVOTHYROXINE 112MCG TABLET (0.112MG) PO SCH (06:00)
--- NOTE | 2016-08-14 07:39 | ECGEPIP ---
Stationary ECG Study [facility] Test Date: 2016-08-13 Pat Name: JACE BAH Department: Room: [place] [address] Gender: F Educational Manager: SAURABH : 1935 Requested By: Ashley Cabrera Order Number: [id number] Reading MD: Aditya Steel Measurements Intervals [place] Rate: 81 P: 58 MA: 224 QRS: 8 QRSD: 111 T: 80 QT: 357 QTc: 417 Interpretive Statements SINUS RHYTHM WITH FIRST DEGREE AV BLOCK NON-SPECIFIC INTRAVENTRICULAR CONDUCTION DELAY NONSPECIFIC T-WAVE ABNORMALITY SIMILAR 08/12/16 Electronically Signed On 08-14-2016 7:39:13 EDT by Aditya Steel
[2016-08-14] MEDS: ADVAIR DISKUS 250/50 INH PWD INH SCH ×2 (07:43→19:36)
[2016-08-14 10:00] LABS: MAGNESIUM LEVEL 1.7 MG/DL (1.8-2.4)
[2016-08-14] MEDS: CALCIUM CARBONATE 500 MG CHEW U/D PO SCH ×3 (10:01→22:47)
[2016-08-14] MEDS: HEPARIN SOD (PORCINE) 5000 UNITS/ML VIAL SC SCH (10:01)
[2016-08-14] MEDS: CALCITRIOL 0.25 MCG CAP (S0169) PO SCH ×2 (10:01→22:47)
[2016-08-14] MEDS: OYSTER SHELL CALCIUM 500 MG TAB PO SCH ×2 (10:01→22:47)
[2016-08-14] MEDS: cefTRIAXone SOD 1 GM in D5W MINI-BAG PLUS 50 ML IV SCH (12:12)
[2016-08-14] MEDS ORDERED: SLF 3 ML SYR IV PRN (12:30)
[2016-08-14] MEDS: SLF 3 ML SYR IV SCH ×2 (12:52→22:00)
[2016-08-14] MEDS ORDERED: MAG SULF 1GM/100ML (MAG RUN) 1 GM in APPROPRIATE DILUENT 1 EA IV ONE (13:00)
[2016-08-14] MEDS ORDERED: NS 1,000 ML IV SCH (13:15)
--- NOTE | 2016-08-14 13:16 | IPNPDOC ---
Text Note Date of Service The patient was seen on 08/14/16. NOTE Subjective: Patient is a 81 year old female with a PMHx of Papillary thyroid cancer (s/p thyroidectomy 05/2016), Asthma, Abnormal mammogram (follows with Dr. Mcdonald), Thalassemia trait, HTN, DLP, Osteoporosis (w/ history of fractures) and GERD / Cote's esophagus who presented to the ER with complaints of passing out 08/12 morning. She was walking to her kitchen and passed out. Upon arrival to the ER she was found to have JOAN, Anemia, Hypocalcemia and a developing infiltrate on CXR. She was admitted to telemetry. Patient was seen and examined at the bedside. She reports that she is still coughing. She feels a little stronger today. Objective: Vitals (See below) General: Lying in bed, no acute distress, comfortable, AAOx3 HEENT: NC, AT CVS: RRR, +S1S2 Lungs: Fair air entry b/l, no appreciable wheezing / rales / rhonchi Abdomen: Soft, ND, NT, +BSx4 Extremities: +PPx4, - Edema, - Calf tenderness Assessment and plan: 1. Syncope - possibly 2/2 multifactorial etiology 2/2 anemia, dehydration, infection 2/2 community acquired pneumonia, less likely cardiac related, less likely neurogenic - Presented after she collapsed at home while ambulating - Physical dose not reveal anything specific; may appear hypo-volemic - Labs reveals above - EKG with 1st degree AV block, T wave flattening on Lead aVL - Troponin x3 negative - ECHO report pending - c/w telemetry monitoring 2. Acute on chronic microcytic anemia - likely 2/2 thalassemia trait and component of anemia of chronic disease - Hg baseline of 10 - No overt signs of bleeding - Occult blood negative - Hemoglobin stable - Has had colonoscopy and EGD in 2008; colonoscopy reported normal and EGD with Cote's esophagus - s/p 2 units PRBC transfusion 3. s/p Acute kidney injury - likely 2/2 pre-renal etiology 2/2 dehydration - Cr baseline of 0.6-0.9 - Presented with Cr of 1.9 - c/w IV fluid hydration 4. Pneumonia - likely 2/2 Community acquire pneumonia, possibly resistance - Presented with mild cough - Physical does not reveal any rhonchi - Blood cultures show no growth at 24 hours - CXR 08/12: LLL consolidation and small pleural effusion - Will start Zosyn and Vancomycin (Day #1) for broader coverage; will d/c Ceftriaxone and Azithromycin (Day 3 of antibiotics total) 5. 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 History of paroxysmal atrial fibrillation - currently not on rate control or anticoagulation - Telemetry monitoring reveals atrial fibrillation - Will get EKG to confirm - BP remains well controlled; HR max at 120; has improved with temperature control and IV fluids - will start low dose Metoprolol tartrate 12.5mg PO BID - Will start Eliquis for anticoagulation 7. Asthma - c/w Advair and Duoneb PRN 8. DLP - c/w Rosuvastatin 9. HTN - BP on lower limits of normal - Lisinopril on hold (re: JOAN) 10. Hypothyroidism - c/w Levothyroxine at current dose - Dose has not been adjusted since surgical procedure - TSH is depressed; likely intentionally given history of cancer 11. Osteoporosis 12. GERD / Cote's esophagus - will need outpatient follow up - c/w omeprazole 13. DVT prophylaxis - c/w Heparin VS,Fishbone, I+O VS, Fishbone, I+O Laboratory Tests 08/13/16 14:12 Red Blood Count 3.93 L, Mean Corpuscular Volume 76.0 L, Mean Corpuscular Hemoglobin 24.6 L, Mean Corpuscular Hemoglobin Concent 32.3, Red Cell Distribution Width 20.3 H, Neutrophils (%) (Auto) 82.7 H, Lymphocytes (%) (Auto ) 10.8 L, Monocytes (%) (Auto) 4.1, Eosinophils (%) (Auto) 0.3, Basophils (%) ( Auto) 0.2, Neutrophils # (Auto) 8.7 H, Lymphocytes # (Auto) 1.3 L, Monocytes # ( Auto) 0.4, Eosinophils # (Auto) 0.0, Basophils # (Auto) 0.0, Calcium Level 7.3 L , Aspartate Amino Transf (AST/SGOT) 16, Alanine Aminotransferase (ALT/SGPT) 14, Alkaline Phosphatase 89, Total Bilirubin 0.3, Total Protein 5.4 L, Albumin 1.8 L 08/14/16 04:58 Red Blood Count 3.91 L, Mean Corpuscular Volume 76.0 L, Mean Corpuscular Hemoglobin 24.7 L, Mean Corpuscular Hemoglobin Concent 32.5, Red Cell Distribution Width 20.1 H, Neutrophils (%) (Auto) 79.1 H, Lymphocytes (%) (Auto ) 13.9 L, Monocytes (%) (Auto) 3.9, Eosinophils (%) (Auto) 0.5, Basophils (%) ( Auto) 0.2, Neutrophils # (Auto) 10.4 H, Lymphocytes # (Auto) 1.8, Monocytes # ( Auto) 0.5, Eosinophils # (Auto) 0.1, Basophils # (Auto) 0.0, Calcium Level 7.0 L , Aspartate Amino Transf (AST/SGOT) 16, Alanine Aminotransferase (ALT/SGPT) 13, Alkaline Phosphatase 86, Total Bilirubin 0.4, Total Protein 5.5 L, Albumin 1.7 L Vital Signs Date Time Temp Pulse Resp B/P (MAP) Pulse Ox O2 Delivery O2 Flow Rate FiO2 08/14/16 12:23 99.6 117 18 112/65 (81) 94 Room Air I&O- Last 24 Hours up to 6 AM 08/14/16 06:00 Intake Total 2905 ml Output Total 775 ml Balance 2130 ml JENIFFER STALLWORTH MD Aug 14, 2016 13:16
[2016-08-14] MEDS ORDERED: VANCOMYCIN HCL 1,000 MG, VIAL MATE ADAPTER 1 EACH in D5W 250 ML IV ONE (14:00)
--- NOTE | 2016-08-14 14:05 | PHACANCOPD ---
PHARMACY VANCOMYCIN DOSING Pt Demographics Demographics Patient Age:81 , Weight:45.900 , Gender: female Adjusted Body Weight Date: 08/14/16, Adjusted Body Weight: [45.9] Kg Events Past 24 Hours Events Past 24 Hours: NO: Dialysis, Diuretic Therapy, Change in CrCl, Fever, Elevation in WBC, Pending Diagnostics, Pending Procedures, Other Vancomycin Vancomycin indication: HCAP Vancomycin Target Ranges: 15-20 mcg/ml Vancomycin Load Y/N: Yes Load Dose Date Time Vancomycin Load Dose: 1G Date: 08/14/16 Time: 14 Vancomycin Dose Date: 08/14/16. Current Vancomycin Dose: [750MG IV Q24H] Intermittent Dosing?: No Labs Labs Item Value Date Time White Blood Count 13.0 K/mm3 H 08/12/16 1219 White Blood Count 8.9 K/mm3 08/13/16 0530 White Blood Count 10.5 K/mm3 H 08/13/16 1412 White Blood Count 13.2 K/mm3 H 08/14/16 0458 Creatinine 1.06 MG/DL H 08/14/16 0458 C-Reactive Protein, Quantitative 5.43 MG/DL H 08/14/16 0458 Micro Microbiology 08/12/16 Blood Culture - Preliminary, Resulted No Growth after 48 hours. All Specime... Creatinine Clearance Date:08/14/16. Creatinine Clearance: [35.2ml/min.]. Assessment and Plan Maintaining Current Dose?: Yes Reason for dose change: No Dose Change Pharmacist Note Pharmacist Note Date: 08/14/16. Pharmacist note: Pt is a 81 year old female presenting with HCAP. She has no history of vancomycin therapy here at [facility] in the past. Goal trough is set at 15-20mcg/ml. To achieve goal a loading dose was started at 14:00. Maintenance will consist of 750mg q24h. We will continue to monitor and adjust dose as needed. [facility] Aug 14, 2016 14:05
[2016-08-14] MEDS ORDERED: SODIUM CHLORIDE 0.9% 1000 ML IV ONE (15:30)
[2016-08-14] MEDS: METOPROLOL TART 12.5 MG PER 1/2 TAB PO SCH ×2 (16:01→21:00)
[2016-08-14] MEDS: ROSUVASTATIN 10 MG TAB (CRESTOR) PO SCH (22:44)
[2016-08-14] MEDS: APIXABAN 2.5 MG TAB (ELIQUIS) PO SCH (22:45)
[2016-08-14] MEDS: PIPERACILLIN/TAZOBACTAM SOD 3.375 GM in D5W MINI-BAG PLUS 50 ML IV SCH (22:48)
[2016-08-15] MEDS: IPRATROPIUM 0.5MG/ALBUTEROL 2.5MG INH SOL UD 3ML (DUONEB)(J7620) NEB SCH ×4 (01:25→19:16)
[2016-08-15 04:45] VITALS: BP 133/64
[2016-08-15 05:25] LABS: BASO % 0.1 % (0.0-1.0); EOS % 0.3 % (0.0-3.0); LARGE UNSTAINED CELL # 0.3 K/mm3 (0.0-0.4); LARGE UNSTAINED CELL % 2.8 % (0.0-4.0); LYMPH # 1.6 K/mm3 (1.5-4.5); MEAN CORPUSCULAR HEMOGLOBIN 24.2 pg (27.0-33.0); MEAN CORPUSCULAR HGB CONC 32.1 g/dl (32.0-36.5); MEAN CORPUSCULAR VOLUME 75.4 fl (80.0-96.0); MONO # 0.5 K/mm3 (0.0-0.8); MONO % 4.6 % (0.0-5.0); NEUTROPHILS # 8.2 K/mm3 (1.8-7.7); NEUTROPHILS % 79.2 % (36.0-66.0); PLATELET COUNT, AUTOMATED 216 k/mm3 (150-450); RED CELL DISTRIBUTION WIDTH 20.9 % (11.5-14.5); WHITE BLOOD COUNT 10.4 K/mm3 (4.0-10.0)
[2016-08-15 05:47] LABS: ALBUMIN 1.4 GM/DL (3.2-5.2); ALBUMIN/GLOBULIN RATIO 0.41 (1.00-1.93); ALKALINE PHOSPHATASE 78 U/L (45-117); ALT/SGPT 12 U/L (12-78); ANION GAP 7 MEQ/L (8-16); AST/SGOT 15 U/L (15-37); BILIRUBIN,TOTAL 0.6 MG/DL (0.2-1.0); BLOOD UREA NITROGEN 16 MG/DL (7-18); CARBON DIOXIDE LEVEL 23 MEQ/L (21-32); CHLORIDE LEVEL 114 MEQ/L (98-107); CREATININE FOR GFR 0.73 MG/DL (0.55-1.02); GLOMERULAR FILTRATION RATE > 60.0 (>39); GLUCOSE, FASTING 83 MG/DL (83-110); MAGNESIUM LEVEL 1.3 MG/DL (1.8-2.4); POTASSIUM SERUM 3.8 MEQ/L (3.5-5.1); SODIUM LEVEL 144 MEQ/L (136-145); TOTAL PROTEIN 4.8 GM/DL (6.4-8.2)
[2016-08-15] MEDS: PIPERACILLIN/TAZOBACTAM SOD 3.375 GM in D5W MINI-BAG PLUS 50 ML IV SCH ×3 (05:48→21:23)
[2016-08-15] MEDS: LEVOTHYROXINE 100MCG TABLET (0.1MG) PO SCH (05:49)
[2016-08-15] MEDS: SLF 3 ML SYR IV SCH ×3 (05:49→22:40)
--- NOTE | 2016-08-15 06:27 | ECHO ---
DATE OF PROCEDURE: 08/14/2016 REFERRING PHYSICIAN: Dr. Hallie Guajardo. INDICATION: Syncope. HEIGHT: 155 cm. WEIGHT: 43 kg. MEASUREMENTS: Left atrium: 3.0 cm Ventricular septum: 0.88 cm Posterior wall: 0.87 cm Left ventricle diastole: 4.4 cm Aortic root: 2.9 cm LVOT: 1.7 cm Inferior vena cava: 2.0 cm (greater than sign 50% respiratory variation). DOPPLER MEASUREMENTS: Aortic valve velocity: 176 cm/s LVOT velocity: 129 cm/s LVOT VTI: 20.7 cm Mild mitral regurgitation. Mitral E velocity: 86.9 cm/s Mitral A velocity: 60.2 cm/s Mitral deacceleration time: 169 ms Mild tricuspid regurgitation. Estimated right ventricular systolic pressure 26-31 mmHg assuming an atrial pressure of 5-10 mmHg. Pulmonary artery systolic pressure 31 mmHg by pulmonary acceleration time method. MITRAL ANNULAR TISSUE DOPPLER: E-prime septal: 7.8 cm/s E-prime lateral: 7.2 cm/s DESCRIPTION: Rhythm was sinus. Image quality was fair. This was a 2D, M-mode, color flow Doppler and pulsed wave Doppler examination and included mitral annular tissue Doppler. CONCLUSIONS: 1. Normal left ventricle wall thickness and internal dimensions. Normal overall LV systolic function. LVEF 60% by visual estimate. Normal LV diastolic function for age. Localized region of akinesis involving the apical path of the basal inferior LV segment. Normal regional wall motion and LV wall thickening elsewhere. 2. Small pericardial effusion. No diastolic chamber collapse. Pericardial effusion measured 4.8 cm over the posterior wall. 3. Moderate aortic valve sclerosis of 3-cusp aortic valve. No aortic stenosis or regurgitation. 4. Suggestive of slight elevation of the pulmonary artery systolic pressure. 5. Left pleural effusion.
[2016-08-15] MEDS ORDERED: MAG SULF 1GM/100ML (MAG RUN) 1 GM in APPROPRIATE DILUENT 1 EA IV ONE (06:45)
[2016-08-15 08:00] VITALS: BP 106/58
[2016-08-15] MEDS: ADVAIR DISKUS 250/50 INH PWD INH SCH ×2 (08:23→20:34)
--- NOTE | 2016-08-15 09:24 | IPNPDOC ---
Text Note Date of Service The patient was seen on 08/15/16. NOTE Subjective: Patient is a 81 year old female with a PMHx of Papillary thyroid cancer (s/p thyroidectomy 05/2016), Asthma, Abnormal mammogram (follows with Dr. Mcdonald), Thalassemia trait, HTN, DLP, Osteoporosis (w/ history of fractures) and GERD / Cote's esophagus who presented to the ER with complaints of passing out 08/12 morning. She was walking to her kitchen and passed out. Upon arrival to the ER she was found to have JOAN, Anemia, Hypocalcemia and a developing infiltrate on CXR. She was admitted to telemetry. Patient was seen and examined at the bedside. States she continues to feel better. Denies chest pain, shortness of breath, dizziness. Reported one episode of maroon colored stool last night. Objective: Vitals (See below) General: Lying in bed, no acute distress, comfortable, AAOx3 HEENT: NC, AT CVS: RRR, +S1S2 Lungs: Fair air entry b/l, no appreciable wheezing / rales / rhonchi Abdomen: Soft, ND, NT, +BSx4 Extremities: +PPx4, - Edema, - Calf tenderness Assessment and plan: 1. Syncope - possibly 2/2 multifactorial etiology 2/2 anemia, dehydration, infection 2/2 community acquired pneumonia, less likely cardiac related, less likely neurogenic - Presented after she collapsed at home while ambulating - Physical dose not reveal anything specific; may appear hypo-volemic - Labs reveals above - EKG with 1st degree AV block, T wave flattening on Lead aVL - Troponin x3 negative - ECHO report pending - c/w telemetry monitoring 2. Acute on chronic microcytic anemia - likely 2/2 thalassemia trait and component of anemia of chronic disease - Hg baseline of 10 - No overt signs of bleeding - Occult blood negative - Hemoglobin stable - Has had colonoscopy and EGD in 2008; colonoscopy reported normal and EGD with Cote's esophagus - s/p 2 units PRBC transfusion 3. s/p Acute kidney injury - likely 2/2 pre-renal etiology 2/2 dehydration - Cr baseline of 0.6-0.9 - Presented with Cr of 1.9 - c/w IV fluid hydration 4. Pneumonia - likely 2/2 Community acquire pneumonia, possibly resistance - Presented with mild cough - Physical does not reveal any rhonchi - Blood cultures show no growth at 24 hours - CXR 08/12: LLL consolidation and small pleural effusion - Zosyn and Vancomycin (Day #2) for broader coverage; previously Ceftriaxone and Azithromycin (Day 4 of antibiotics total) 5. 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 History of paroxysmal atrial fibrillation - currently not on rate control or anticoagulation - Telemetry monitoring reveals atrial fibrillation - Will get EKG to confirm - BP remains well controlled; HR max at 120; has improved with temperature control and IV fluids - Metoprolol tartrate 12.5mg PO BID - Eliquis for anticoagulation 7. Asthma - c/w Advair and Duoneb PRN 8. DLP - c/w Rosuvastatin 9. HTN - BP on lower limits of normal - Lisinopril on hold (re: JOAN) 10. Hypothyroidism - c/w Levothyroxine at current dose - Dose has not been adjusted since surgical procedure - TSH is depressed; likely intentionally given history of cancer 11. Osteoporosis 12. GERD / Cote's esophagus - will need outpatient follow up - c/w omeprazole 13. DVT prophylaxis - Eliquis VS,Fishbone, I+O VS, Fishbone, I+O Laboratory Tests 08/15/16 04:52 Red Blood Count 3.49 L, Mean Corpuscular Volume 75.4 L, Mean Corpuscular Hemoglobin 24.2 L, Mean Corpuscular Hemoglobin Concent 32.1, Red Cell Distribution Width 20.9 H, Neutrophils (%) (Auto) 79.2 H, Lymphocytes (%) (Auto ) 13.0 L, Monocytes (%) (Auto) 4.6, Eosinophils (%) (Auto) 0.3, Basophils (%) ( Auto) 0.1, Neutrophils # (Auto) 8.2 H, Lymphocytes # (Auto) 1.6, Monocytes # ( Auto) 0.5, Eosinophils # (Auto) 0.0, Basophils # (Auto) 0.0, Calcium Level 7.0 L , Aspartate Amino Transf (AST/SGOT) 15, Alanine Aminotransferase (ALT/SGPT) 12, Alkaline Phosphatase 78, Total Bilirubin 0.6, Total Protein 4.8 L, Albumin 1.4 L Vital Signs Date Time Temp Pulse Resp B/P (MAP) Pulse Ox O2 Delivery O2 Flow Rate FiO2 08/15/16 08:22 Room Air 08/15/16 08:00 98.4 82 20 106/58 (27) 94 I&O- Last 24 Hours up to 6 AM 08/15/16 06:00 Intake Total 1410 ml Output Total 550 ml Balance 860 ml JOSE CARLSON MD Aug 15, 2016 09:24
[2016-08-15] MEDS: METOPROLOL TART 12.5 MG PER 1/2 TAB PO SCH ×2 (09:26→21:15)
[2016-08-15] MEDS: CALCITRIOL 0.25 MCG CAP (S0169) PO SCH ×2 (09:26→21:15)
[2016-08-15] MEDS: CALCIUM CARBONATE 500 MG CHEW U/D PO SCH ×3 (09:26→21:15)
[2016-08-15] MEDS: APIXABAN 2.5 MG TAB (ELIQUIS) PO SCH ×2 (09:27→21:15)
[2016-08-15] MEDS: OYSTER SHELL CALCIUM 500 MG TAB PO SCH ×2 (09:27→21:16)
[2016-08-15 12:00] VITALS: BP 140/60
[2016-08-15] MEDS ORDERED: VANCOMYCIN HCL 750 MG, VIAL MATE ADAPTER 1 EACH in D5W 250 ML IV SCH (14:00)
[2016-08-15 16:00] VITALS: BP 109/55
[2016-08-15] MEDS: metroNIDAZOLE (FLAGYL) 500 MG TAB PO SCH ×2 (17:23→21:15)
[2016-08-15 20:00] VITALS: BP 120/64
[2016-08-15] MEDS: ROSUVASTATIN 10 MG TAB (CRESTOR) PO SCH (21:16)
[2016-08-15 23:59] VITALS: BP 113/55
[2016-08-16] MEDS: IPRATROPIUM 0.5MG/ALBUTEROL 2.5MG INH SOL UD 3ML (DUONEB)(J7620) NEB SCH ×4 (01:36→20:00)
[2016-08-16] MEDS: LEVOTHYROXINE 100MCG TABLET (0.1MG) PO SCH (05:50)
[2016-08-16] MEDS: PIPERACILLIN/TAZOBACTAM SOD 3.375 GM in D5W MINI-BAG PLUS 50 ML IV SCH ×3 (05:50→21:50)
[2016-08-16] MEDS: metroNIDAZOLE (FLAGYL) 500 MG TAB PO SCH ×3 (05:50→21:48)
[2016-08-16] MEDS: SLF 3 ML SYR IV SCH ×3 (05:51→21:50)
[2016-08-16 05:52] LABS: BASO % 0.2 % (0.0-1.0); EOS % 0.3 % (0.0-3.0); LARGE UNSTAINED CELL # 0.4 K/mm3 (0.0-0.4); LARGE UNSTAINED CELL % 3.3 % (0.0-4.0); LYMPH # 1.4 K/mm3 (1.5-4.5); LYMPH % 12.8 % (24.0-44.0); MEAN CORPUSCULAR HEMOGLOBIN 24.8 pg (27.0-33.0); MEAN CORPUSCULAR HGB CONC 32.2 g/dl (32.0-36.5); MEAN CORPUSCULAR VOLUME 77.1 fl (80.0-96.0); MONO # 0.5 K/mm3 (0.0-0.8); MONO % 4.5 % (0.0-5.0); NEUTROPHILS # 8.8 K/mm3 (1.8-7.7); NEUTROPHILS % 78.8 % (36.0-66.0); PLATELET COUNT, AUTOMATED 221 k/mm3 (150-450); RED CELL DISTRIBUTION WIDTH 20.7 % (11.5-14.5); WHITE BLOOD COUNT 11.1 K/mm3 (4.0-10.0)
[2016-08-16 06:52] LABS: ALBUMIN 1.4 GM/DL (3.2-5.2); ALKALINE PHOSPHATASE 82 U/L (45-117); ALT/SGPT 13 U/L (12-78); ANION GAP 8 MEQ/L (8-16); AST/SGOT 17 U/L (15-37); BILIRUBIN,TOTAL 0.5 MG/DL (0.2-1.0); BLOOD UREA NITROGEN 11 MG/DL (7-18); CALCIUM LEVEL 7.6 MG/DL (8.8-10.2); CARBON DIOXIDE LEVEL 24 MEQ/L (21-32); CHLORIDE LEVEL 113 MEQ/L (98-107); CREATININE FOR GFR 0.82 MG/DL (0.55-1.02); GLOMERULAR FILTRATION RATE > 60.0 (>39); GLUCOSE, FASTING 82 MG/DL (83-110); MAGNESIUM LEVEL 1.5 MG/DL (1.8-2.4); POTASSIUM SERUM 3.9 MEQ/L (3.5-5.1); SODIUM LEVEL 145 MEQ/L (136-145); TOTAL PROTEIN 4.9 GM/DL (6.4-8.2)
[2016-08-16] MEDS: ADVAIR DISKUS 250/50 INH PWD INH SCH ×2 (07:10→20:27)
[2016-08-16 07:35] VITALS: BP 106/64
[2016-08-16] MEDS: METOPROLOL TART 12.5 MG PER 1/2 TAB PO SCH ×2 (09:00→21:49)
[2016-08-16] MEDS: CALCIUM CARBONATE 500 MG CHEW U/D PO SCH ×3 (09:04→21:49)
[2016-08-16] MEDS: CALCITRIOL 0.25 MCG CAP (S0169) PO SCH ×2 (09:04→21:49)
[2016-08-16] MEDS: OYSTER SHELL CALCIUM 500 MG TAB PO SCH ×2 (09:05→21:49)
[2016-08-16] MEDS: APIXABAN 2.5 MG TAB (ELIQUIS) PO SCH ×2 (09:05→21:49)
--- NOTE | 2016-08-16 09:45 | IPN ---
DATE: 08/16/2016 81-year-old seen at bedside resting comfortably. She denies fevers, chills, chest pain, shortness of breath. No nausea or vomiting. However, she did test positive for Clostridium difficile in her GI panel last evening. OBJECTIVE: Temperature 98.3, pulse 81, respiratory rate 20, blood pressure (BP) 106/64, SPO2 is 91% on room air. General: The patient appears to be in no acute distress. Is alert, pleasant. HEENT: Unremarkable. Lungs: Clear. Heart: Regular rate and rhythm. Abdomen: Soft. Extremities: No edema. No calf tenderness. LABORATORY DATA: White count is 11.1, hemoglobin is 9.1 and platelets are 221,000. Sodium 145, potassium 3.9, chloride 113, bicarb 24, anion gap 8, BUN 11, creatinine 0.82, glucose 82. Her calcium is 7.6. Magnesium is 1.5, which we will supplement. Albumin is 1.4. ASSESSMENT/PLAN: 1. Syncope likely secondary to dehydration, loose stool, diarrhea and positive C. Diff. She has not shown any significant findings on telemetry and EKG has been unremarkable for any acute findings. Troponin has remained negative. Her echocardiogram shows an ejection fraction of 60%, normal left ventricular wall thickness internal dimensions, and normal overall left ventricular systolic function, as well as, diastolic dysfunction is normal for her age. She had a small pericardial effusion which appears to be non-problematic and no signs of tamponade. Moderate aortic sclerosis. Some suggestive slight elevation in pulmonary artery systolic pressure and a small left pleural effusion was noted. At any rate, most likely the syncope is related to her dehydration and mild kidney injury and that is likely related to her C. diff colitis. 2. C. diff colitis. Will switch her antibiotics to by mouth vancomycin. 3. Acute on chronic microcytic anemia likely secondary thalassemia trait and component of chronic kidney disease as well as her current illness. Her hemoglobin/hematocrit (H/H) appears to be stable. Occult blood was negative. No overt signs of bleeding. She had colonoscopy in 2008 which was reported normal and esophagogastroduodenoscopy (EGD) suggested Cote's esophagus. Will continue on proton pump inhibitor (PPI). She is not requiring any further blood transfusions at this point, but she has received two since her admission. 4. Acute kidney injury, likely secondary to prerenal/dehydration. Will continue with the IV fluid hydration for now since her pressure does appear to be improving. Likely will continue for another 24 hours and discontinue tomorrow. Her creatinine does appear to be much improved today. 5. Pneumonia, possibly community acquired. Chest x-ray on 08/12/2016 showed left lower lobe consolidation with small pleural effusion. She is currently on Zosyn and vancomycin. I did discontinue the IV vancomycin and switch her by mouth vancomycin due to the C. diff colitis. The Zosyn is likely fine for the time being. Will await blood and sputum cultures. 6. Hypocalcemia, likely secondary to hyperparathyroidism status post parathyroidectomy and thyroidectomy. Ionized calcium and her overall calcium does appear to be much improved. Continue with oral calcium supplementation and vitamin D supplementation. 7. History of paroxysmal atrial fibrillation, not currently taking a rate controlled medication or her anticoagulation from home. However, she was started on low-dose metoprolol as well as Eliquis for anticoagulation and appears to be tolerating these medications. 8. Asthma. Continue with Advair and DuoNebs. 9. Dyslipidemia. Continue on rosuvastatin. 10. Hypertension stable. Holding lisinopril currently due to lower blood pressures and acute kidney injury. This likely will be resumed on discharge. 11. Hypothyroidism. Continue on levothyroxine. 12. Osteoporosis. No current issues. 13. Gastroesophageal reflux disease and Cote's esophagus. Will need outpatient followup. Continue with omeprazole. 14. Deep vein thrombosis (DVT) prophylaxis. Will go ahead and discontinue heparin. She is currently on Eliquis. DISPOSITION: Anticipate that she will be here another 24-48 hours.
[2016-08-16] MEDS: MAG SULF 1GM/100ML (MAG RUN) 1 GM in APPROPRIATE DILUENT 1 EA IV SCH ×2 (10:15→11:24)
[2016-08-16] MEDS: VANCOMYCIN ORAL SOL 250MG/5ML ORAL SYRINGE PO SCH ×2 (11:52→18:23)
--- NOTE | 2016-08-16 13:31 | ECGEPIP ---
Stationary ECG Study [facility] Test Date: 2016-08-14 Pat Name: JACE BAH Department: Room: [place] [address] Gender: F Form Grader Operator: CELINA : 1935 Requested By: MONIQUE AYALA Order Number: [id number] Reading MD: Aditya Steel Measurements Intervals [place] Rate: 101 P: CO: 0 QRS: 19 QRSD: 91 T: -40 QT: 328 QTc: 425 Interpretive Statements ATRIAL FIBRILLATION WITH RAPID VENTRICULAR RESPONSE NONSPECIFIC ST & T-WAVE ABNORMALITY ABNORMAL RHYTHM ECG SINCE 08/13/16 ATRIAL FIBRILLATION IS NEW Electronically Signed On 08-16-2016 13:30:53 EDT by Aditya Steel
[2016-08-16 20:30] VITALS: BP 143/60
[2016-08-16] MEDS: ROSUVASTATIN 10 MG TAB (CRESTOR) PO SCH (21:49)
[2016-08-16 22:00] VITALS: BP 121/58
[2016-08-17] MEDS: VANCOMYCIN ORAL SOL 250MG/5ML ORAL SYRINGE PO SCH ×2 (00:42→06:01)
[2016-08-17 02:00] VITALS: BP 115/60
[2016-08-17 06:00] VITALS: BP 139/71
[2016-08-17] MEDS: PIPERACILLIN/TAZOBACTAM SOD 3.375 GM in D5W MINI-BAG PLUS 50 ML IV SCH (06:01)
[2016-08-17] MEDS: metroNIDAZOLE (FLAGYL) 500 MG TAB PO SCH (06:01)
[2016-08-17] MEDS: LEVOTHYROXINE 100MCG TABLET (0.1MG) PO SCH (06:01)
[2016-08-17] MEDS: SLF 3 ML SYR IV SCH (06:01)
[2016-08-17 06:37] LABS: BASO % 0.3 % (0.0-1.0); EOS # 0.1 K/mm3 (0.0-0.50); EOS % 0.9 % (0.0-3.0); LARGE UNSTAINED CELL # 0.3 K/mm3 (0.0-0.4); LARGE UNSTAINED CELL % 4.3 % (0.0-4.0); LYMPH # 2.8 K/mm3 (1.5-4.5); LYMPH % 35.7 % (24.0-44.0); MEAN CORPUSCULAR HEMOGLOBIN 23.8 pg (27.0-33.0); MEAN CORPUSCULAR VOLUME 76.8 fl (80.0-96.0); MONO # 0.4 K/mm3 (0.0-0.8); MONO % 5.8 % (0.0-5.0); NEUTROPHILS # 3.7 K/mm3 (1.8-7.7); PLATELET COUNT, AUTOMATED 242 k/mm3 (150-450); RED CELL DISTRIBUTION WIDTH 20.9 % (11.5-14.5); WHITE BLOOD COUNT 6.9 K/mm3 (4.0-10.0)
[2016-08-17 07:00] LABS: ALBUMIN 1.5 GM/DL (3.2-5.2); ALBUMIN/GLOBULIN RATIO 0.45 (1.00-1.93); ALKALINE PHOSPHATASE 77 U/L (45-117); ALT/SGPT 13 U/L (12-78); ANION GAP 9 MEQ/L (8-16); AST/SGOT 16 U/L (15-37); BILIRUBIN,TOTAL 0.5 MG/DL (0.2-1.0); BLOOD UREA NITROGEN 9 MG/DL (7-18); CALCIUM LEVEL 7.9 MG/DL (8.8-10.2); CARBON DIOXIDE LEVEL 23 MEQ/L (21-32); CHLORIDE LEVEL 109 MEQ/L (98-107); GLOMERULAR FILTRATION RATE > 60.0 (>39); GLUCOSE, FASTING 81 MG/DL (83-110); MAGNESIUM LEVEL 1.8 MG/DL (1.8-2.4); POTASSIUM SERUM 3.6 MEQ/L (3.5-5.1); SODIUM LEVEL 141 MEQ/L (136-145); TOTAL PROTEIN 4.8 GM/DL (6.4-8.2)
[2016-08-17] MEDS: IPRATROPIUM 0.5MG/ALBUTEROL 2.5MG INH SOL UD 3ML (DUONEB)(J7620) NEB SCH (07:22)
[2016-08-17] MEDS: ADVAIR DISKUS 250/50 INH PWD INH SCH (07:22)
[2016-08-17] MEDS ORDERED: VANC25SOL PO (10:23)
[2016-08-17] MEDS ORDERED: METO1TAB87 PO (10:23)
[2016-08-17] MEDS ORDERED: ELIQ2.5T PO (10:23)
[2016-08-17] MEDS ORDERED: CEFD1CAP8 PO (10:24)
[2016-08-17] MEDS ORDERED: BACITAB PO (10:24)
[2016-08-17 10:40] VITALS: BP 139/71
[2016-08-17] MEDS: CALCITRIOL 0.25 MCG CAP (S0169) PO SCH (10:40)
[2016-08-17] MEDS: OYSTER SHELL CALCIUM 500 MG TAB PO SCH (10:40)
[2016-08-17] MEDS: METOPROLOL TART 12.5 MG PER 1/2 TAB PO SCH (10:40)
[2016-08-17] MEDS: APIXABAN 2.5 MG TAB (ELIQUIS) PO SCH (10:41)
[2016-08-17] MEDS: CALCIUM CARBONATE 500 MG CHEW U/D PO SCH (10:41)
--- NOTE | 2016-08-17 16:54 | DSES ---
DATE OF ADMISSION: 08/12/2016 DATE OF DISCHARGE: 08/17/2016 PRIMARY CARE PROVIDER: Asha Downs FINAL DIAGNOSES: 1. Syncope, likely secondary to dehydration. 2. Clostridium (C) difficile colitis. 3. Acute on chronic microcytic anemia. 4. Acute kidney injury secondary to prerenal hydration. 5. Pneumonia, community acquired. 6. Hypocalcemia. 7. History of paroxysmal atrial fibrillation. 8. History of asthma. 9. Dyslipidemia. 10. Hypertension. 11. Hypothyroidism. 12. Osteoporosis. 13. Gastroesophageal reflux disease (GERD). HISTORY OF PRESENT ILLNESS: This is a 81-year-old female patient with underlying medical history of papillary carcinoma of the thyroid, history of abnormal mammogram, follows with Dr. Mcdonald regarding left breast, thalassemia traits, history of hypertension, dyslipidemia, osteoporosis with prior fracture, gastroesophageal reflux disease (GERD), Cote's esophagus, thyroidectomy for thyroid cancer, hyperparathyroidism, also a history of asthma and cataract surgery. The patient presented to the emergency room with episode of syncope and was apparently walking to her kitchen. When the patient fell she was only out for briefly. No seizure activity noted. The patient underwent total thyroidectomy in May 2016 for papillary cell carcinoma. Since that time, the patient has had problems swallowing. She has also had diarrhea with significant weight loss and also had difficulty swallowing and has loose productive cough. HOSPITAL COURSE: The patient was admitted to the hospital and was found to be in acute kidney injury. IV fluids were given, likely syncope due to dehydration. The patient was started on IV antibiotics for suspected pneumonia with Zosyn and vancomycin. GI panel showed C difficile. Subsequently, vancomycin was discontinued. The patient was started on vancomycin orally. The patient was also found to be anemic and was started on proton pump inhibitor. Fecal occult was negative. Hemoglobin and hematocrit were monitored. No further signs of bleeding. The patient's hemoglobin and hematocrit were closely followed. The patient's kidney function improved with treatment. Passed physical therapy (PT). Was given supplementation, likely hypocalcemic due to hypoparathyroidism, status post parathyroidectomy. Calcium has been followed and supplemented, as well as vitamin D. Levothyroxine was continued. Deep vein thrombosis (DVT) prophylaxis was provided with Eliquis. The patient is on Eliquis for atrial fibrillation. Beta jazz has been given. The patient's condition progressively improved, currently is only having two loose bowel movements over a 12 hour period. Tolerating oral with normal kidney function. Ready for discharge for further care as an outpatient. VITAL SIGNS: Temperature 98, pulse 69, respirations 18, blood pressure 139/71, pulse oximetry 94% on room air. GENERAL: The patient is comfortable and in no acute distress. HEENT: Normocephalic, atraumatic. PULMONARY: Bilaterally clear. CARDIAC: Regular rate and rhythm. Normal S1, S2. ABDOMEN: Soft, nontender, nondistended. EXTREMITIES: No edema in bilateral lower extremities. LABORATORY DATA: WBC 6.9, hemoglobin and hematocrit 9/29.1, platelets 242. Chemistry: Sodium 141, potassium 3.6, chloride 109, bicarbonate 23, BUN 9, creatinine 0.8. DISCHARGE MEDICATIONS: - Eliquis 2.5 mg by mouth twice a day - Cefdinir 300 mg by mouth twice a day for 5 more days - Bacid one tablet by mouth three times a day for 90 tablets - metoprolol 12.5 mg by mouth twice a day - vancomycin orally 250 mg by mouth three times a day for 14 days - aspirin 81 mg by mouth daily - vitamin D 2000 units by mouth daily - ferrous sulfate 325 mg by mouth daily - Synthroid 100 mcg by mouth daily - Lisinopril 40 mg by mouth daily - Imodium 15 mL by mouth as needed - magnesium oxide 400 mg by mouth twice a day - omeprazole 20 mg by mouth daily - Os-Anthony 500 mg by mouth twice a day - PreserVision one tablet by mouth twice a day - Crestor 40 mg by mouth in the morning - Advair Diskus 250/50 mcg inhalation twice a day DISCHARGE INSTRUCTIONS: The patient is instructed to followup with primary care provider in 7 days. Return to the hospital if symptoms worsen.
[2016-11-13] MEDS ORDERED: BREO1INH3 (18:50)
[2016-11-13] MEDS ORDERED: DIFI200T PO (22:06)
[2016-11-13] MEDS ORDERED: ROSU40TA PO (22:20)
[2016-11-13] MEDS ORDERED: D 101TAB PO (22:20)
[2016-11-13] MEDS ORDERED: CALC500T36 PO (22:20)
[2016-11-13] MEDS ORDERED: FERR1TAB8 PO (22:20)
[2016-11-13] MEDS ORDERED: VITMTA PO (22:20)
== END 2016-08-17 13:32 | disposition home health service (06) | DRG 371 ==
LOC: M ED 13:36 → M ED INP 15:38 → M PCU 17:19 → M MS5PR 08-16 12:45
PROVIDERS: ATTEND Hospitalist
PROC: 30253N1 (ICD-10-PCS; principal; 2016-08-12)
DX: A04.7 Enterocolitis due to Clostridium difficile (principal); J18.9 Pneumonia, unspecified organism; N17.9 Acute kidney failure, unspecified; E89.0 Postprocedural hypothyroidism; R13.10 Dysphagia, unspecified; I48.0 Paroxysmal atrial fibrillation; K21.9 Gastro-esophageal reflux disease without esophagitis; R63.4 Abnormal weight loss; M81.0 Age-related osteoporosis without current pathological fracture; E78.5 Hyperlipidemia, unspecified; I10 Essential (primary) hypertension; D56.3 Thalassemia minor; D50.9 Iron deficiency anemia, unspecified; K22.70 Barrett's esophagus without dysplasia; D63.8 Anemia in other chronic diseases classified elsewhere; E86.0 Dehydration; E83.51 Hypocalcemia; Z79.82 Long term (current) use of aspirin; Z79.899 Other long term (current) drug therapy; Z85.850 Personal history of malignant neoplasm of thyroid

== ENCOUNTER 2016-09-23 23:01 | Inpatient (IN) | payer MEDICARE, MEDICAID ==
[~2016-09-23] VITALS: Ht 154.9 cm; Wt 42.7 kg
[~2016-09-23 23:01] MED LIST changes: +BACITAB PO; +CEFD1CAP8 PO; +ELIQ2.5T PO; +FERR325T3 PO; +IMODLIQ6 PO; +LEVO100T5; +LEVO100T5 PO; +LISI40TAB PO; +MAGN400T2 PO; +METO1TAB87 PO; +OMEP20CA3 PO; +OYSCTAB; +OYSCTAB PO; +VANC25SOL PO
[2016-09-23] MEDS ORDERED: ONDANSETRON 4MG/2ML VIAL (J2405) IV ONE (23:45)
[2016-09-23] MEDS ORDERED: NS 500 ML IV ONE (23:45)
[2016-09-23] MEDS ORDERED: MORPHINE 2 MG/ML 1ML SYRINGE IV PRN (23:45)
[2016-09-24 01:06] LABS: BASO % 0.1 % (0.0-1.0); EOS % 0.1 % (0.0-3.0); LARGE UNSTAINED CELL # 0.3 K/mm3 (0.0-0.4); LARGE UNSTAINED CELL % 2.7 % (0.0-4.0); LYMPH # 1.2 K/mm3 (1.5-4.5); MEAN CORPUSCULAR HEMOGLOBIN 23.3 pg (27.0-33.0); MEAN CORPUSCULAR HGB CONC 31.6 g/dl (32.0-36.5); MEAN CORPUSCULAR VOLUME 73.8 fl (80.0-96.0); MONO # 1.1 K/mm3 (0.0-0.8); MONO % 10.2 % (0.0-5.0); NEUTROPHILS # 8.8 K/mm3 (1.8-7.7); PLATELET COUNT, AUTOMATED 265 k/mm3 (150-450); RED CELL DISTRIBUTION WIDTH 19.5 % (11.5-14.5); WHITE BLOOD COUNT 11.2 K/mm3 (4.0-10.0)
[2016-09-24 01:07] LABS: ADD MORPHOLOGY? YES
[2016-09-24 01:14] LABS: INR 1.28
[2016-09-24 01:47] LABS: ALBUMIN 2.8 GM/DL (3.2-5.2); ALBUMIN/GLOBULIN RATIO 0.68 (1.00-1.93); ALKALINE PHOSPHATASE 79 U/L (45-117); ALT/SGPT 21 U/L (12-78); ANION GAP 8 MEQ/L (8-16); AST/SGOT 18 U/L (15-37); BILIRUBIN,DIRECT 0.2 MG/DL (0.0-0.2); BILIRUBIN,TOTAL 0.7 MG/DL (0.2-1.0); BLOOD UREA NITROGEN 20 MG/DL (7-18); CALCIUM LEVEL 8.2 MG/DL (8.8-10.2); CARBON DIOXIDE LEVEL 26 MEQ/L (21-32); CHLORIDE LEVEL 109 MEQ/L (98-107); CREATININE FOR GFR 0.98 MG/DL (0.55-1.02); GLOMERULAR FILTRATION RATE 58.3 (>39); GLUCOSE, FASTING 167 MG/DL (83-110); POTASSIUM SERUM 3.2 MEQ/L (3.5-5.1); SODIUM LEVEL 143 MEQ/L (136-145); TOTAL PROTEIN 6.9 GM/DL (6.4-8.2)
[2016-09-24 01:52] LABS: ANISOCYTOSIS 2+; HYPOCHROMASIA 1+; MICROCYTOSIS 2+
[2016-09-24 01:53] LABS: TEAR DROP CELLS 1+
[2016-09-24] MEDS ORDERED: ISOVUE-370 76% 100ML VIAL (Q9967) As Ordered ONE (01:59)
[2016-09-24] MEDS ORDERED: METO1TAB87 PO (02:04)
[2016-09-24] MEDS ORDERED: ELIQ2.5T PO (02:04)
[2016-09-24] MEDS ORDERED: SYNT88TA2 PO (02:04)
[2016-09-24] MEDS ORDERED: CALC500T49 PO (02:04)
[2016-09-24] MEDS ORDERED: PROAAER10 INH (02:04)
[2016-09-24] MEDS ORDERED: BACITAB PO (02:04)
--- NOTE | 2016-09-24 03:20 | REPUSA ---
CLINICAL HISTORY: Abdominal pain. TECHNIQUE: Multiple axial, sagittal and coronal CT images were obtained through the abdomen and pelvi s after administration of intravenous contrast material. COMMENTS: The liver is of uniform attenuation without mass or defect. There is mild extrahepatic biliary ductal dilatation. The spleen is normal. The gallbladder contains a gallstone. The pancreas is of normal co ntour and attenuation characteristics. There is no evidence of adrenal mass. 4.3 cm left renal enhancing mass. Both kidneys demonstrate prompt and equal nephrograms. The kidneys are normal in size, shape and conf iguration. There is no evidence of right renal or ureteral mass. No renal or ureteral calculi are gus ntified. There is no hydroureter or hydronephrosis. No evidence for appendicitis. There is diffuse thickening of the wall of the colon. Findings are mor e prominent at the level of the sigmoid colon. Fluid-filled small bowels. No evidence for small or la rge bowel obstruction. There is no evidence of abdominal ascites. There is no evidence of intrinsic or extrinsic bladder mass. There is no pelvic ascites or lymphadeno meghan. Mildly enlarged retroperitoneal lymph nodes with the largest measuring 1.3 cm. Images of the lung bases show no evidence of pleural or parenchymal mass. Small left pleural effusion . Left lower lobe consolidation. Mild cardiomegaly. Small sliding hiatal hernia. The bony structures are free of lytic or blastic lesions. Multilevel degenerative changes are seen in volving the thoracolumbar spine. Scattered calcifications are seen involving the aorta and major bran ches compatible with atherosclerosis. IMPRESSION: Gallstone. Left renal enhancing mass. This is suggestive of renal cell carcinoma. Colitis. Findings are more prominent at the level of the sigmoid colon. No perforation or abscess for mation. Hepatomegaly. Ileus/ enteritis. Mild extrahepatic biliary ductal dilatation. Small left pleural effusion. Left lower lobe consolidation. Thank you for your kind referral of this patient.
[2016-09-24] MEDS ORDERED: LevoFLOXacin IV 750 MG in APPROPRIATE DILUENT 1 EA IV ONE (03:30)
[2016-09-24] MEDS ORDERED: POTASSIUM CHLORIDE 10 MEQ SR TABLET PO ONE ×2 (04:15→16:00)
[2016-09-24 05:12] LABS: MAGNESIUM LEVEL 1.9 MG/DL (1.8-2.4)
[2016-09-24] MEDS ORDERED: ALBUTEROL 90 MCG/ACT 8GM HFA INHALER INH PRN (05:15)
[2016-09-24] MEDS ORDERED: ACETAMINOPHEN TAB 650MG DOSE (2X325MG) PO PRN (05:30)
[2016-09-24] MEDS ORDERED: ONDANSETRON 4MG/2ML VIAL (J2405) IV PRN (05:30)
[2016-09-24] MEDS: LEVOTHYROXINE 88MCG TABLET (0.088 MG) PO SCH (06:16)
--- NOTE | 2016-09-24 06:50 | REPUSA ---
CLINICAL HISTORY: Pneumonia. TECHNIQUE: Multiple axial CT images were obtained through the thorax without IV contrast material. COMMENTS: Small left pleural effusion. Left lower lobe consolidation. Bilateral groundglass densities in the lungs. Moderate cardiomegaly. Small pericardial effusion. There is no evidence of pleural or parenchymal-based mass. There are no pleural effusions. There is n o evidence of hilar or mediastinal lymphadenopathy. The visualized portions of the liver are of uniform attenuation without mass or defect. There is no i ntra or extrahepatic biliary ductal dilatation. The spleen is unremarkable. The visualized pancreas i s of normal contour and attenuation characteristics. There is no evidence of adrenal mass. The visual ized portions of the kidneys present no abnormalities. Small sliding hiatal hernia. The bony structures are free of lytic or blastic lesions. IMPRESSION: Small left pleural effusion. Left lower lobe consolidation. Bronchitis. Cardiomegaly. Pericardial effusion. Chronic increase in dorsal kyphosis secondary to mild chronic compression deformities of the thoracic vertebral bodies. Thank you for your kind referral of this patient.
[2016-09-24 07:18] LABS: INR 1.24
[2016-09-24 07:20] LABS: BASO % 0.1 % (0.0-1.0); EOS % 0.4 % (0.0-3.0); LARGE UNSTAINED CELL # 0.3 K/mm3 (0.0-0.4); LYMPH # 1.3 K/mm3 (1.5-4.5); MEAN CORPUSCULAR HEMOGLOBIN 24.5 pg (27.0-33.0); MEAN CORPUSCULAR HGB CONC 31.8 g/dl (32.0-36.5); MEAN CORPUSCULAR VOLUME 76.9 fl (80.0-96.0); MONO # 1.2 K/mm3 (0.0-0.8); MONO % 13.9 % (0.0-5.0); NEUTROPHILS # 5.8 K/mm3 (1.8-7.7); NEUTROPHILS % 69.6 % (36.0-66.0); PLATELET COUNT, AUTOMATED 252 k/mm3 (150-450); WHITE BLOOD COUNT 8.4 K/mm3 (4.0-10.0)
--- NOTE | 2016-09-24 07:25 | HPE ---
DATE OF ADMISSION: 09/24/2016 Time patient was seen was at around 4:00 a.m. PRIMARY CARE PROVIDER: Flako Serrano MD and Asha Younger. GUEST EXPERIENCE REPRESENTATIVE: Meghna Parrish MD CHIEF COMPLAINT: Abdominal cramps. HISTORY OF PRESENT ILLNESS: 81-year-old female with past medical history of a recent admission back in early August for community acquired pneumonia and C. Difficile, also papillary cancer of the thyroid status post resection, also abnormal mammogram, thalassemia trait due to thyroidectomy, syncope, history of C. Difficile, history of paroxysmal atrial fibrillation, asthma, hyperlipidemia, hypertension, hypothyroidism due to thyroidectomy, osteoporosis, gastroesophageal reflux disease (GERD) with Cote's esophagus, who presented with abdominal cramps which started two days ago. Per the patient, she has been having diarrhea about 3-4 times a day and the stool was dark and black looking. Per patient, the abdominal cramps were severe and get better after bowel movement; however, she denies any fever or chills. Denies any shortness of breath. Admits to recent weight loss, however she has gained some back. Admits to some sputum production. Denies any blood in the sputum, which was mostly clear. Denies any chest pain, denies any problems with urination, any burning on urination, or any urinary urgency or blood in the urine. The patient denies any dizziness. ALLERGIES: No known drug allergies. HOME MEDICATIONS: Include: - ProAir two puffs inhalation every 4 hours as needed - Eliquis 2.5 mg one tablet by mouth twice a day - aspirin 81 mg one tablet by mouth daily - calcium 500 mg one tablet by mouth twice a day - vitamin D3 2000 units one tablet by mouth daily - ferrous sulfate 325 mg one tablet by mouth daily - Bacid one tablet by mouth three times a day - Synthroid 88 mcg one tablet by mouth daily - lisinopril 40 mg one tablet by mouth daily - magnesium oxide 400 mg one tablet by mouth twice a day - metoprolol tartrate 12.5 mg one tablet by mouth twice a day - omeprazole 20 mg one tablet by mouth daily - PreserVision one tablet by mouth twice a day - Crestor 40 mg one tablet by mouth daily - Advair Diskus one puff inhalation twice a day PAST MEDICAL HISTORY: Includes: 1. History of papillary cancer status post thyroidectomy in May 2016. 2. Abnormal mammogram. 3. 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 4. Hypothyroidism after thyroidectomy. 5. History of syncope. 6. Recent C. difficile back in August of 2016. 7. History of paroxysmal atrial fibrillation on Eliquis. 8. Asthma. 9. Hyperlipidemia. 10. Hypertension. 11. Osteoporosis. 12. Gastroesophageal reflux disease (GERD) with Cote's esophagus. 13. Thalassemia trait. PAST SURGICAL HISTORY: 1. Thyroidectomy back in May 2016. 2. Cataract surgery. SOCIAL HISTORY: Patient lives by herself. Denies any smoking, drinking, or recreational drug use. Patient does have a friend coming to visit her, Asha Downs, phone number is [phone]. Patient would like her to make decisions for her if possible. Patient also has a niece, however she is not around. Patient is a DO NOT RESUSCITATE, DO NOT INTUBATE, however. FAMILY HISTORY: Noncontributory. REVIEW OF SYSTEMS: GENERAL: Denies any recent traveling or sick contacts. Admits to weight loss, however has gained some weight back. Denies any fever or chills. HEENT: Denies any changes with vision, smell, hearing or taste. Patient does have trouble swallowing at baseline. Improved after thyroidectomy, however only eats pureed food at home. CARDIOVASCULAR: Denies any chest pain or trouble breathing. Admits to sputum production, however it was clear mostly. GASTROINTESTINAL (GI): Admits to abdominal cramps improved after bowel movement. Admits to dark black stool yesterday, multiple times, at least 3-4 times. GENITOURINARY (): Denies any blood in the urine. Denies any urinary urgency or any dysuria. MUSCULOSKELETAL: Denies any pain anywhere. ENDOCRINE: Denies any heat or cold intolerance; however, she does have a history of hypothyroidism and hypoparathyroidism after thyroidectomy for papillary cancer of the thyroid. Patient also had an abnormal mammogram in the past. HEMATOLOGY/ONCOLOGY: History of papillary cancer of the thyroid status post resection. Patient also has thalassemia trait. NEUROLOGICAL: Patient denies any changes of sensation or any weakness on any one side of her body. PSYCH: Denies any anxiety or depression. SKIN: Denies any rash or ulcerations anywhere. PHYSICAL EXAMINATION: VITAL SIGNS: Temperature 98.9. At one time, the patient's temperature was 100.3. Pulse 88, respirations 18, blood pressure 160/68. Oxygen was saturating at 99% on 2 liters of nasal cannula. GENERAL: Patient is a cachexic looking elderly female who was pleasant, was alert, awake and oriented times three laying comfortably in bed with head at roughly 15 degrees. HEENT: Normocephalic, atraumatic. Extraocular motors intact. Mucous moist. NECK: Supple. No neck lymphadenopathy. CARDIOVASCULAR: Regular rate and rhythm, S1 and S2, no murmurs, rubs or gallops. LUNGS: Slight rhonchi bilaterally with slight rales, especially in the basilar areas. ABDOMEN: Positive bowel sounds. Soft, nontender, nondistended. No peritoneal signs. No ecchymosis. EXTREMITIES: No edema, clubbing or cyanosis. SKIN: Warm and dry. NEURO: Cranial nerves II through XII intact. No focal neurologic deficits. LABORATORIES: WBC 11.2, hemoglobin 7.7, hematocrit 24.5 with platelet count of 265 and MCV of 73.8. Sodium 143, potassium 3.2, chloride 109, bicarb 26, anion gap was 8, BUN 20, creatinine 0.98, GFR 58.3, fasting glucose 167, calcium 8.2, magnesium 1.9, total bilirubin 0.7, direct bilirubin 0.2, AST 18, ALT 21, alkaline phosphatase 79, total CK 36, CK-MB 1, Troponin less than 0.002. CRP was elevated at 5.85. Total protein 6.9, albumin 2.8, lipase 170. Patient's coags showed a PT of 16.3, INR of 1.28, PTT 37. Blood cultures times one is pending. Patient is being transfused with 1 unit of packed red blood cells (PRBC). Patient's CT of the abdomen and pelvis shows gallstones, left renally enhancing mass suggestive of renal cell carcinoma, colitis most prominent at the sigmoid colon, hepatomegaly, ileus, enteritis, mild extrahepatic biliary duct dilation, small left pleural effusion, left pleural consolidation. Patient also had a portable chest x-ray in the emergency room, official result is pending. Preliminary results show cardiomegaly and left lower lobe infiltrate. CT of the chest results are pending. ASSESSMENT/PLAN: 81-year-old female with a past medical history of papillary cancer of the thyroid status post thyroidectomy and with hypothyroidism and hypoparathyroidism. Also a history of abnormal mammogram, recent history of C. difficile and recent pneumonia, history of paroxysmal atrial fibrillation on Eliquis, asthma, hyperlipidemia, hypertension, history of chronic anemia with thalassemia trait, osteoporosis, hypertension and Cote's esophagus who presented with: 1. Anemia, likely secondary to acute GI blood loss. Patient's guaiac stool was positive in the emergency room. Patient also complained of dark black stool, which started yesterday. Admits to diarrhea at least 3-4 times, which was associated with abdominal pain. At this point, will trend the patient's CBC every 6 hours. Patient received 1 unit of PRBC in the emergency room. Will transfuse as needed if hemoglobin is less than 8 and continue to monitor the patient. Blood pressure is currently stable. 2. Colitis at the sigmoid area showing on CT of the abdomen and pelvis. GI panel has been ordered, result is pending. At this point, will treat colitis with levofloxacin and Flagyl, and continue to monitor the patient. Continue to trend WBC, currently it is 11.2. Patient also did have a slightly elevated temperature of 100.3 earlier. Will continue to monitor. 3. Left renal mass. Suspect renal cell carcinoma. Patient will likely need a biopsy to rule out cancer. Will followup. 4. Left lower lobe consolidation with a small left pleural effusion. CT of the chest has been ordered. Results are pending. Will continue to monitor. At this point, will continue levofloxacin for possible pneumonia, however does not seem to be symptomatic from the pneumonia. Denies any trouble breathing or chest pain and there is no actual fever. 5. Acute on chronic anemia. Please see as stated in #1. Hemoglobin was 7.7, MCV 73.8, iron studies have been ordered, will follow. Patient does have a history of thalassemia trait. Will continue to trend hemoglobin and hematocrit. 6. Hepatomegaly. Unknown etiology. At this point, there is no elevated AST/ALT. Will continue to monitor. 7. Mild extrahepatic biliary duct dilatation. Continue to monitor. Patient does not complain of nausea. CT did show gallstones, however. 8. Hypokalemia with a potassium of 3.2, which has been repleted. 9. Elevated CRP at 5.85 suggestive of infectious etiology, which was confirmed by CT of the abdomen and pelvis, which shows colitis and also pneumonia. Continue IV antibiotics. 10. Albumin of 2.8, malnutrition. Likely secondary to diarrhea. Possibly will start by mouth supplementation once the patient can tolerate. 11. Slightly elevated INR of 1.28. Possibly reflects liver disease, however patient was on Eliquis as well. Will continue to trend. 12. History of paroxysmal atrial fibrillation on Eliquis. Eliquis has been on hold due to possible acute GI bleed. Continue to monitor. Will restart Eliquis once the patient's hemoglobin and hematocrit is stable. 13. History of papillary carcinoma of the thyroid status post resection back in May 2016. Patient also developed hypothyroidism and hypoparathyroidism. Will continue Synthroid and replete calcium as needed. 14. History of syncope. Continue to monitor. 15. History of C. Difficile. Followup GI panel. So far, patient is on Levaquin and Flagyl to cover both pneumonia and C. Difficile. 16. History of asthma. Continue home nebulizers. 17. Hyperlipidemia. Continue statin. 18. Hypertension. Continue home blood pressure medications including lisinopril and Lopressor. 19. Osteoporosis. Continue to monitor. Continue fall precautions. 20. Cote's esophagus. Continue to monitor. Patient is on IV Protonix twice a day for acute GI bleed. 21. Deep vein thrombosis (DVT) prophylaxis. Thromboembolic deterrent stockings (TEDS) and sequentials. We are holding Eliquis and heparin, and also holding aspirin due to possible acute GI bleed. 22. Fluids, electrolytes and diet. Currently patient is receiving a transfusion. After transfusion, will assess the patient's fluid status, possibly will start a maintenance fluid if the patient is able to tolerate and currently will place the patient on a clear liquid diet due to GI bleed. Will advance the diet once the patient is able to tolerate. Likely patient will be advised a pureed diet due to patient stating that she has trouble swallowing at baseline. DISPOSITION: Patient does have a recently found left renal mass. Will likely need a biopsy. In addition, acute GI blood loss will possibly consider consulting general surgery versus gastroenterology and will continue IV antibiotics for pneumonia and also colitis. Will rule out C. difficile with a GI panel and continue to monitor hemoglobin and hematocrit every 6 hours and will restart Eliquis once the patient's hemoglobin and hematocrit are stable. Patient has been discussed with attending doctor, Dr. Strange. My preceptor for this patient encounter was Dr. Robe Strange. The preceptor was physically present in the building during the encounter and was fully available. As needed, all aspects of the patient interview, examination, medical decision making process, and medical care plan development were reviewed and approved by the preceptor. The preceptor is aware and concurs with the plan as stated in the body of this note and will attest to such by his/her cosignature.
[2016-09-24 07:45] LABS: ANION GAP 10 MEQ/L (8-16); BLOOD UREA NITROGEN 18 MG/DL (7-18); CALCIUM LEVEL 7.6 MG/DL (8.8-10.2); CARBON DIOXIDE LEVEL 24 MEQ/L (21-32); CHLORIDE LEVEL 111 MEQ/L (98-107); CREATININE FOR GFR 0.76 MG/DL (0.55-1.02); FERRITIN 1464 NG/ML (8-252); GLOMERULAR FILTRATION RATE > 60.0 (>39); GLUCOSE, FASTING 123 MG/DL (83-110); PERCENT SATURATION 11.1 % (13.2-45.0); POTASSIUM SERUM 3.3 MEQ/L (3.5-5.1); SODIUM LEVEL 145 MEQ/L (136-145); TOTAL IRON BINDING CAPACITY 180 UG/DL (250-450)
[2016-09-24 08:00] VITALS: BP 157/69
--- NOTE | 2016-09-24 08:05 | REP ---
Portable chest, 04:29 a.m., single AP view the patient semi upright: Comparison is 08/12/2016. The patient is rotated. The cardiac silhouette superimposes the inferior half of the left hemithorax obscuring visualization. The left upper lobe is clear. There is an old healed left rib fracture, unchanged. Right lung is clear. Impression: The left lower lobe is obscured. The visualized lung bains are clear. Signed by Malik Hernandez MD 09/24/2016 07:56 A
[2016-09-24 08:45] LABS: FOLATE 12.8 NG/ML (>5.4); VITAMIN B12 LEVEL 324 PG/ML (247-911)
[2016-09-24] MEDS: ADVAIR HFA 115/21MCG INHALER INH SCH ×2 (08:49→21:49)
[2016-09-24] MEDS: LISINOPRIL 40 MG TAB PO SCH (08:56)
[2016-09-24] MEDS: metroNIDAZOLE 500 MG in APPROPRIATE DILUENT 1 EA IV SCH ×2 (08:56→16:30)
[2016-09-24] MEDS: METOPROLOL TART 12.5 MG PER 1/2 TAB PO SCH ×2 (08:56→21:29)
[2016-09-24] MEDS: VITAMIN D 1,000 INTERNATIONAL UNITS TABLET PO SCH (08:56)
[2016-09-24] MEDS: CALCIUM CARBONATE 500 MG CHEW U/D PO SCH ×2 (08:57→21:25)
[2016-09-24] MEDS: LACTOBACILLUS ACIDOPHILUS CAP (BACID) PO SCH ×3 (08:57→21:25)
[2016-09-24] MEDS: ROSUVASTATIN 10 MG TAB (CRESTOR) PO SCH (08:57)
[2016-09-24] MEDS: PANTOPRAZOLE 40MG INJ (PROTONIX) (C9113) IV SCH ×2 (08:59→21:25)
[2016-09-24] MEDS ORDERED: OMEPRAZOLE 20 MG CAP PO SCH (09:00)
[2016-09-24 12:00] VITALS: BP 94/50
[2016-09-24 12:20] LABS: MEAN CORPUSCULAR HEMOGLOBIN 24.3 pg (27.0-33.0); MEAN CORPUSCULAR HGB CONC 31.4 g/dl (32.0-36.5); MEAN CORPUSCULAR VOLUME 77.4 fl (80.0-96.0); RED CELL DISTRIBUTION WIDTH 19.9 % (11.5-14.5); WHITE BLOOD COUNT 7.6 K/mm3 (4.0-10.0)
[2016-09-24 15:10] VITALS: BP 98/49
[2016-09-24 15:25] VITALS: BP 109/52
[2016-09-24] MEDS ORDERED: MAG SULF 1GM/100ML (MAG RUN) 1 GM in APPROPRIATE DILUENT 1 EA IV ONE (16:00)
[2016-09-24 17:42] LABS: MEAN CORPUSCULAR HEMOGLOBIN 24.6 pg (27.0-33.0); MEAN CORPUSCULAR HGB CONC 31.3 g/dl (32.0-36.5); MEAN CORPUSCULAR VOLUME 78.4 fl (80.0-96.0); RED CELL DISTRIBUTION WIDTH 19.9 % (11.5-14.5); WHITE BLOOD COUNT 10.6 K/mm3 (4.0-10.0)
[2016-09-24 19:50] VITALS: BP 110/53
[2016-09-24 23:24] LABS: MEAN CORPUSCULAR HEMOGLOBIN 23.8 pg (27.0-33.0); RED CELL DISTRIBUTION WIDTH 19.7 % (11.5-14.5)
[2016-09-25] VITALS (7 sets, daily range): BP systolic 97–115; BP diastolic 51–58
[2016-09-25] MEDS: metroNIDAZOLE 500 MG in APPROPRIATE DILUENT 1 EA IV SCH ×3 (01:37→16:06)
[2016-09-25] MEDS: LEVOTHYROXINE 88MCG TABLET (0.088 MG) PO SCH (05:07)
[2016-09-25 06:16] LABS: BASO % 0.2 % (0.0-1.0); EOS % 0.7 % (0.0-3.0); LARGE UNSTAINED CELL # 0.4 K/mm3 (0.0-0.4); LARGE UNSTAINED CELL % 6.5 % (0.0-4.0); LYMPH # 1.8 K/mm3 (1.5-4.5); LYMPH % 20.2 % (24.0-44.0); MEAN CORPUSCULAR HEMOGLOBIN 24.8 pg (27.0-33.0); MEAN CORPUSCULAR HGB CONC 31.7 g/dl (32.0-36.5); MONO # 0.8 K/mm3 (0.0-0.8); MONO % 11.4 % (0.0-5.0); PLATELET COUNT, AUTOMATED 232 k/mm3 (150-450); WHITE BLOOD COUNT 6.6 K/mm3 (4.0-10.0)
[2016-09-25 06:19] LABS: INR 1.25
[2016-09-25 06:37] LABS: ANION GAP 10 MEQ/L (8-16); BLOOD UREA NITROGEN 19 MG/DL (7-18); CALCIUM LEVEL 7.3 MG/DL (8.8-10.2); CARBON DIOXIDE LEVEL 21 MEQ/L (21-32); CHLORIDE LEVEL 117 MEQ/L (98-107); CREATININE FOR GFR 0.81 MG/DL (0.55-1.02); GLOMERULAR FILTRATION RATE > 60.0 (>39); GLUCOSE, FASTING 87 MG/DL (83-110); POTASSIUM SERUM 4.3 MEQ/L (3.5-5.1); SODIUM LEVEL 148 MEQ/L (136-145)
[2016-09-25] MEDS: ADVAIR HFA 115/21MCG INHALER INH SCH ×2 (07:52→20:21)
[2016-09-25] MEDS: METOPROLOL TART 12.5 MG PER 1/2 TAB PO SCH ×2 (08:37→20:54)
[2016-09-25] MEDS: LISINOPRIL 40 MG TAB PO SCH (08:37)
[2016-09-25] MEDS: VITAMIN D 1,000 INTERNATIONAL UNITS TABLET PO SCH (09:01)
[2016-09-25] MEDS: CALCIUM CARBONATE 500 MG CHEW U/D PO SCH ×2 (09:01→21:04)
[2016-09-25] MEDS: LACTOBACILLUS ACIDOPHILUS CAP (BACID) PO SCH ×3 (09:01→21:04)
[2016-09-25] MEDS: ROSUVASTATIN 10 MG TAB (CRESTOR) PO SCH (09:01)
[2016-09-25] MEDS: PANTOPRAZOLE 40MG INJ (PROTONIX) (C9113) IV SCH ×2 (09:01→21:04)
--- NOTE | 2016-09-25 13:42 | IPN ---
DATE: 09/25/2016 SUBJECTIVE: The patient tells me she feels about the same. In terms of her diarrhea she had 3-4 episodes overnight. The nursing staff was apparently unable to collect a sample as it was mixed with urine. The patient tells me that she feels better otherwise though. She tells me that she has been having diarrhea on and off for approximately one week and that she has been having a cough for approximately the last month. She otherwise denies fevers, chills, chest pain, shortness of breath. OBJECTIVE: VITAL SIGNS: Temperature is 97, pulse 78, respiratory rate 18, blood pressure 104/53, oxygen saturation 98% on 2 liters. GENERAL : She is a frail, elderly, cachectic female laying in bed at a 30 degree angle. She does not appear to be in acute distress. She appears tired, but speaks in complete sentences. Awake, alert and oriented times three. HEENT: Bitemporal wasting. Dry mucous membranes. No elevation of CVP. CARDIOVASCULAR EXAM: S1, S2 regular. RESPIRATORY EXAM: Clear. ABDOMINAL EXAM: Scaphoid. Bowel sounds are present. The abdomen is soft, nontender even to deep palpation. EXTREMITIES: Wasted. LABORATORY STUDIES: WBC 6.6, hemoglobin 8.5, platelet count 232. Chemistry panel: Sodium 148, potassium 4.3, chloride 117, bicarbonate 21, BUN 19, creatinine 0.8. Iron studies are suggestive of iron deficiency anemia. She has an INR of 1.2. Microbiology: Blood cultures are negative after 24 hours. She is status post 1 unit of PRBCs. Her initial hemoglobin was 7.7. IMAGING: She had a CT scan of the chest that revealed a small left pleural effusion, left lower lobe consolidation, bronchitis, cardiomegaly, pericardial effusion small, chronic increase in dorsal kyphosis. The patient did have an abdominal CT scan as well that revealed gallstones, left renal enhancing mass suggestive of renal cell carcinoma, colitis, hepatomegaly, ileus/enteritis. Small left pleural effusions, once again left lower lobe consolidation. ASSESSMENT AND PLAN: This is a 81-year-old female admitted with cough and diarrhea. PROBLEMS: 1. Cough and diarrhea. The patient did have a fever of 101.3 early yesterday morning. She does not have a leukocytosis. She is not tachycardic. However, there is concern for a potential course of infection, either in the respiratory tract or her colon. For the time being she is on empiric levofloxacin and Flagyl which would cover for community acquired pneumonia as well as colitis. At the present, we will attempt to collect a GI PCR panel. Continue to monitor clinically. We will wean her oxygen as tolerated and nothing to suspect that she has any significant oxygen requirement at this point. 2. Anemia. Her occult stool for blood was positive. She is iron deficient. Likely related to Eliquis use for atrial fibrillation. Her anticoagulation has been held. She did receive 1 unit of PRBCs. Her hemoglobin and hematocrit remains stable. She will be started on iron supplementation. She has been started on Bacid.GIB possibly secondary to coagulation defect due to Eliquis 3. Left renal mass suspicious for renal cell carcinoma. She is not a smoker herself, however, she has had significant second hand exposure throughout her life. Once her acute medical illness has resolved, I will consider an inpatient CT guided biopsy. 4. Protein calorie malnutrition. Possible related to diarrhea. She recently had pneumonia and C. Difficile. She is on a clear liquid diet and Ensure for the time being. 5. Paroxysmal atrial fibrillation. Eliquis is currently on hold. She is on metoprolol for rate control. We will place a holding parameter on this. 6. 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 She is on Synthroid. 7. History of asthma. Continue with nebulizers. Respiratory status appears to be closer approaching to baseline. 8. Dyslipidemia. Continue with statin. 9. Hypertension. She is continued on lisinopril and Lopressor with holding parameters. 10. Deep vein thrombosis (DVT) prophylaxis. Sequentials and thromboembolic deterrent stockings (TEDS). Her aspirin and Eliquis are on hold secondary to acute blood loss anemia. DISPOSITION: Will continue to monitor the patient very closely. [facility]
[2016-09-25] MEDS: FERROUS SULFATE 325MG TAB PO SCH ×2 (13:44→21:04)
--- NOTE | 2016-09-25 22:47 | ECGEPIP ---
Stationary ECG Study [facility] [place] Test Date: 2016-09-24 Pat Name: JACE BAH Department: Room: [place] [address] Gender: F Bench Manager: SAURABH : [id number] Requested By: MIGUEL MONSIVAIS Order Number: [id number] Reading MD: Cipriano Harper Measurements Intervals [place] Rate: 85 P: 54 LA: 193 QRS: -27 QRSD: 90 T: 65 QT: 356 QTc: 424 Interpretive Statements SINUS RHYTHM INFERIOR MYOCARDIAL INFARCTION, PROBABLY OLD ANTEROSEPTAL MYOCARDIAL INFARCTION, PROBABLY OLD LAST TRACING ON 08/14/2016 AT 13:39:46, PATIENT WAS THEN IN ATRIAL FIBRILLATION Electronically Signed On 09-25-2016 22:47:03 EDT by Cipriano Harper
[2016-09-26] MEDS: metroNIDAZOLE 500 MG in APPROPRIATE DILUENT 1 EA IV SCH ×2 (00:22→08:43)
[2016-09-26 04:00] VITALS: BP 115/76
[2016-09-26] MEDS: LEVOTHYROXINE 88MCG TABLET (0.088 MG) PO SCH (05:48)
[2016-09-26] MEDS ORDERED: LevoFLOXacin IV 750 MG in APPROPRIATE DILUENT 1 EA IV SCH (06:00)
[2016-09-26 07:00] LABS: BASO % 0.3 % (0.0-1.0); EOS # 0.1 K/mm3 (0.0-0.50); EOS % 1.7 % (0.0-3.0); LARGE UNSTAINED CELL # 0.2 K/mm3 (0.0-0.4); LARGE UNSTAINED CELL % 3.5 % (0.0-4.0); LYMPH # 1.7 K/mm3 (1.5-4.5); LYMPH % 23.1 % (24.0-44.0); MEAN CORPUSCULAR HEMOGLOBIN 24.4 pg (27.0-33.0); MEAN CORPUSCULAR HGB CONC 30.8 g/dl (32.0-36.5); MONO # 0.5 K/mm3 (0.0-0.8); MONO % 7.9 % (0.0-5.0); NEUTROPHILS % 63.4 % (36.0-66.0); PLATELET COUNT, AUTOMATED 258 k/mm3 (150-450); RED CELL DISTRIBUTION WIDTH 20.2 % (11.5-14.5); WHITE BLOOD COUNT 6.4 K/mm3 (4.0-10.0)
[2016-09-26 07:03] LABS: INR 1.16
[2016-09-26 07:13] LABS: ANION GAP 10 MEQ/L (8-16); BLOOD UREA NITROGEN 18 MG/DL (7-18); CALCIUM LEVEL 6.6 MG/DL (8.8-10.2); CARBON DIOXIDE LEVEL 21 MEQ/L (21-32); CHLORIDE LEVEL 117 MEQ/L (98-107); CREATININE FOR GFR 0.76 MG/DL (0.55-1.02); GLOMERULAR FILTRATION RATE > 60.0 (>39); GLUCOSE, FASTING 81 MG/DL (83-110); POTASSIUM SERUM 3.7 MEQ/L (3.5-5.1); SODIUM LEVEL 148 MEQ/L (136-145)
[2016-09-26 08:00] VITALS: BP 127/60
[2016-09-26] MEDS: ROSUVASTATIN 10 MG TAB (CRESTOR) PO SCH (08:43)
[2016-09-26] MEDS: CALCIUM CARBONATE 500 MG CHEW U/D PO SCH ×2 (08:43→21:12)
[2016-09-26] MEDS: VITAMIN D 1,000 INTERNATIONAL UNITS TABLET PO SCH (08:44)
[2016-09-26] MEDS: LACTOBACILLUS ACIDOPHILUS CAP (BACID) PO SCH ×3 (08:44→21:12)
[2016-09-26] MEDS: METOPROLOL TART 12.5 MG PER 1/2 TAB PO SCH ×2 (08:44→21:13)
[2016-09-26] MEDS: FERROUS SULFATE 325MG TAB PO SCH ×2 (08:44→21:13)
[2016-09-26] MEDS: LISINOPRIL 40 MG TAB PO SCH (08:44)
[2016-09-26] MEDS: ADVAIR HFA 115/21MCG INHALER INH SCH ×2 (09:00→19:49)
[2016-09-26 11:42] VITALS: BP 119/59
--- NOTE | 2016-09-26 13:33 | IPN ---
DATE: 09/26/2016 SUBJECTIVE: This morning the patient tells me that she feels as though she is getting better. She tells me her cough is letting and that her diarrhea is slowing down. She denies chest pain, chest pressure, shortness of breath, fevers, chills, nausea or vomiting. OBJECTIVE: VITAL SIGNS: Temperature is 97.8, pulse 76, respiratory rate 18, blood pressure 127/60, oxygen saturation 96% on room air. GENERAL: She is a frail, cachectic elderly female lying in bed. She does not appear to be in any acute distress. She is smiling and more upbeat today. HEENT: Bitemporal wasting. Moist mucous membranes. No elevation of CVP. CARDIOVASCULAR EXAM: S1, S2 regular. RESPIRATORY EXAM: Clear. ABDOMINAL EXAM: Scaphoid. EXTREMITIES: She appears wasted. LABORATORY STUDIES: WBC 6.4, hemoglobin 8.8, platelet count 258. Chemistry panel: Sodium 148, potassium 3.7, chloride 117, bicarbonate 21, BUN 18, creatinine 0.7, INR 1.1. Blood cultures are negative after 48 hours. No new imaging. ASSESSMENT AND PLAN: This is a 81-year-old female who presented with cough and diarrhea as well as fever. PROBLEMS: 1. Fever, cough. There is certainly concern for pneumonia given her left lower lobe consolidation. She is empirically on levofloxacin which she is tolerating well. Her cough is improving. She has no oxygen requirement. She is to complete a seven day course for community acquired pneumonia. 2. Diarrhea. Unclear etiology. She has a history of C. Difficile. We will once again attempt to obtain a GI PCR panel. I did speak with nursing staff yesterday. I will speak with them once again today to make an effort to collect an appropriate GI PCR panel as well as a fecal occult stool for blood. Her diarrhea does appear to be improving with Flagyl. We will continue with the combination that she is on treatment for colitis to complete a seven day course. She can likely be transitioned to by mouth medications at this time. 3. Anemia. She has iron deficiency anemia, normally on Eliquis for atrial fibrillation. This anticoagulation has been held. She received 1 unit of PRBCs and her hemoglobin and hematocrit has remained relatively stable. Continue to monitor. She is on Bacid. 4. Left renal mass suspicious for renal cell carcinoma. She is a nonsmoker but had significant second hand smoke throughout her life. We did attempt to schedule her for an inpatient CT guided needle biopsy, however we unfortunately do not have any interventional radiology services available to us at this time. She can likely have this completed outpatient with a referral to her primary care provider. But, given her cachexia and anemia, this is certainly concerning. She may benefit from outpatient Aranesp injections. 5. Atrial fibrillation. She was previously on Eliquis. This has been held secondary to her symptomatic anemia. She is rate controlled with Lopressor. 6. Protein calorie malnutrition. Possibly related to diarrhea. Recently pneumonia and C. Difficile possibly related to occult malignancy. She is on a clear liquid diet and Ensure for the time being. Once her diarrhea resolves will advance her back to a regular diet. 7. 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 She is on Synthroid. 8. Asthma. Continue with nebulizers. Respiratory status is at baseline. 9. Dyslipidemia. Continue with statin. 10. Hypertension. Continue with lisinopril and metoprolol with holding parameters. 11. Deep vein thrombosis (DVT) prophylaxis. Sequentials and thromboembolic deterrent stockings (TEDS). No pharmacological agents and Eliquis is on hold secondary to GI losses related to anticoagulation. DISPOSITION: Pending physical therapy/occupational therapy evaluation I suspect the patient may be able to be discharged within the next 24-48 hours and improvement of her diarrhea.
[2016-09-26] MEDS: metroNIDAZOLE (FLAGYL) 500 MG TAB PO SCH ×2 (15:41→21:12)
[2016-09-26 15:58] VITALS: BP 114/56
[2016-09-26 20:00] VITALS: BP 136/65
[2016-09-27] VITALS: BP 128/58
[2016-09-27 04:00] VITALS: BP 154/57
[2016-09-27] MEDS: LEVOTHYROXINE 88MCG TABLET (0.088 MG) PO SCH (05:38)
[2016-09-27] MEDS: metroNIDAZOLE (FLAGYL) 500 MG TAB PO SCH (05:39)
[2016-09-27 06:15] LABS: INR 1.17
[2016-09-27 06:21] LABS: BASO % 0.2 % (0.0-1.0); EOS # 0.1 K/mm3 (0.0-0.50); EOS % 1.1 % (0.0-3.0); LARGE UNSTAINED CELL # 0.2 K/mm3 (0.0-0.4); LARGE UNSTAINED CELL % 2.9 % (0.0-4.0); LYMPH # 1.7 K/mm3 (1.5-4.5); MEAN CORPUSCULAR HGB CONC 30.6 g/dl (32.0-36.5); MEAN CORPUSCULAR VOLUME 78.3 fl (80.0-96.0); MONO # 0.4 K/mm3 (0.0-0.8); MONO % 5.1 % (0.0-5.0); NEUTROPHILS # 5.7 K/mm3 (1.8-7.7); NEUTROPHILS % 71.6 % (36.0-66.0); PLATELET COUNT, AUTOMATED 291 k/mm3 (150-450); RED CELL DISTRIBUTION WIDTH 20.4 % (11.5-14.5); WHITE BLOOD COUNT 7.9 K/mm3 (4.0-10.0)
[2016-09-27 06:29] LABS: ANION GAP 10 MEQ/L (8-16); BLOOD UREA NITROGEN 14 MG/DL (7-18); CALCIUM LEVEL 6.7 MG/DL (8.8-10.2); CARBON DIOXIDE LEVEL 22 MEQ/L (21-32); CHLORIDE LEVEL 117 MEQ/L (98-107); GLOMERULAR FILTRATION RATE > 60.0 (>39); GLUCOSE, FASTING 80 MG/DL (83-110); POTASSIUM SERUM 3.4 MEQ/L (3.5-5.1); SODIUM LEVEL 149 MEQ/L (136-145)
[2016-09-27 07:05] VITALS: BP 130/80
[2016-09-27] MEDS: ADVAIR HFA 115/21MCG INHALER INH SCH ×2 (07:31→19:51)
[2016-09-27] MEDS: CALCIUM CARBONATE 500 MG CHEW U/D PO SCH ×2 (09:32→20:28)
[2016-09-27] MEDS: VITAMIN D 1,000 INTERNATIONAL UNITS TABLET PO SCH (09:33)
[2016-09-27] MEDS: FERROUS SULFATE 325MG TAB PO SCH ×2 (09:33→20:28)
[2016-09-27] MEDS: LACTOBACILLUS ACIDOPHILUS CAP (BACID) PO SCH ×3 (09:33→20:28)
[2016-09-27] MEDS: ROSUVASTATIN 10 MG TAB (CRESTOR) PO SCH (09:33)
[2016-09-27] MEDS: METOPROLOL TART 12.5 MG PER 1/2 TAB PO SCH ×2 (09:34→20:28)
[2016-09-27] MEDS: LISINOPRIL 40 MG TAB PO SCH (09:34)
[2016-09-27] MEDS ORDERED: SLF 3 ML SYR IV PRN (10:30)
[2016-09-27 12:00] VITALS: BP 128/72
[2016-09-27] MEDS: VANCOMYCIN ORAL SOL 250MG/5ML ORAL SYRINGE PO SCH ×3 (12:00→23:47)
[2016-09-27] MEDS ORDERED: POTASSIUM CHLORIDE 10 MEQ SR TABLET PO ONE (12:30)
[2016-09-27 12:49] LABS: IONIZED CALCIUM 4.3 MG/DL (4.5-5.3)
[2016-09-27 13:20] LABS: MAGNESIUM LEVEL 1.8 MG/DL (1.8-2.4)
--- NOTE | 2016-09-27 14:10 | IPN ---
DATE: 09/27/2016 SUBJECTIVE: The patient tells me that she thinks her stool is firming up a little bit. She is still having diarrhea, but not as often. She did not wake up to have any last night. She denies abdominal pain, nausea, vomiting, fevers, chills, chest pain or shortness of breath. OBJECTIVE: VITAL SIGNS: Temperature is 98.2, pulse 79, respiratory rate 20, blood pressure 130/80, oxygen saturation 96% on room air. GENERAL: She is a frail, elderly cachectic female lying flat in bed in no distress watching television. HEENT: Cranial nerves II through XII are grossly intact. She has moist mucous membranes. No elevation of CVP. CARDIOVASCULAR EXAM: S1, S2. RESPIRATORY EXAM: Clear. ABDOMINAL EXAM: Scaphoid. She is wasted. EXTREMITIES: No clubbing, cyanosis, or edema. LABORATORY STUDIES: WBC 7.9, hemoglobin 8.9, platelet count 291. Chemistry panel: Sodium 149, potassium 3.4, repleted, chloride 117, bicarbonate 22, BUN 14, creatinine 0.7, calcium 6.7, ionized calcium is pending. Magnesium level is pending. Microbiology: Stool PCR is positive for C. difficile and occult stool for blood is negative. No new imaging. ASSESSMENT AND PLAN: This is a 81-year-old female who presented with cough and diarrhea as well as fever. PROBLEMS: 1. Fever, cough and diarrhea. There is concern for pneumonia given her left lower lobe consolidation. She is empirically on levofloxacin, does appear to be improving at this time. Tomorrow will be her last dose. She was renally dosed. Will cover for a six day course. She has no oxygen requirement. She is at the higher dose of 750 mg. 2. Diarrhea, likely recurrence of C. Difficile. It may have been worsened by antibiotic use. She is on Bacid. At this time, given that it is a recurrence, I will switch her from by mouth Flagyl to by mouth vancomycin. I will consider her first day of C. difficile treatment starting 09/29/[address] on a course of by mouth vancomycin following that. 3. Iron deficiency anemia. She is normally on Eliquis for atrial fibrillation, but this has been held. She was initially positive for blood in her stool in the ER as per my verbal report, I received. She is status post 1 unit of PRBCs. Her Eliquis has been discontinued. Her occult stool for blood is negative on the most recent testing. 4. Left renal mass suspicious for renal cell carcinoma. She is a nonsmoker but had significant second hand smoke throughout her life. I recommended she have outpatient interventional radiology biopsy this. It may explain her cachexia and anemia. She also may benefit from outpatient Aranesp injections. 5. Atrial fibrillation. She was previously on Eliquis. This has been held secondary to symptomatic anemia and possible GI bleed. She is rate controlled with Lopressor. 6. Protein calorie malnutrition. Possibly related to diarrhea and recent infections. She is on a clear liquid Ensure diet for the time being. As her diarrhea resolves will attempt to advance it to a more regular diet. 7. Papillary carcinoma of the thyroid. She is status post resection. She is on Synthroid. 8. Asthma. She will continue on her nebulizers. She says her respiratory status is at her baseline. 9. Dyslipidemia. She is on a statin. 10. Hypertension. She is on lisinopril and metoprolol with holding parameters. 11. Deep vein thrombosis (DVT) prophylaxis. Sequentials and thromboembolic deterrent stockings (TEDS). No pharmacological agents in the setting of recent bleeding. She is no longer on Eliquis.
[2016-09-27] MEDS: D5W 1,000 ML IV SCH (15:20)
[2016-09-27] MEDS: SLF 3 ML SYR IV SCH ×2 (15:21→20:28)
[2016-09-27 19:41] VITALS: BP 147/70
[2016-09-28 03:50] VITALS: BP 110/70
[2016-09-28] MEDS: LEVOTHYROXINE 88MCG TABLET (0.088 MG) PO SCH (05:05)
[2016-09-28] MEDS: VANCOMYCIN ORAL SOL 250MG/5ML ORAL SYRINGE PO SCH ×4 (05:05→23:11)
[2016-09-28] MEDS: SLF 3 ML SYR IV SCH ×3 (05:05→20:13)
[2016-09-28 05:36] VITALS: BP 110/70
[2016-09-28 05:38] LABS: INR 1.22
[2016-09-28 05:45] LABS: BASO % 0.3 % (0.0-1.0); EOS # 0.1 K/mm3 (0.0-0.50); EOS % 1.2 % (0.0-3.0); LARGE UNSTAINED CELL # 0.2 K/mm3 (0.0-0.4); LARGE UNSTAINED CELL % 3.3 % (0.0-4.0); LYMPH # 1.6 K/mm3 (1.5-4.5); LYMPH % 19.1 % (24.0-44.0); MEAN CORPUSCULAR HEMOGLOBIN 24.3 pg (27.0-33.0); MEAN CORPUSCULAR HGB CONC 31.2 g/dl (32.0-36.5); MEAN CORPUSCULAR VOLUME 77.9 fl (80.0-96.0); MONO # 0.5 K/mm3 (0.0-0.8); MONO % 6.6 % (0.0-5.0); NEUTROPHILS # 5.1 K/mm3 (1.8-7.7); NEUTROPHILS % 69.5 % (36.0-66.0); PLATELET COUNT, AUTOMATED 329 k/mm3 (150-450); RED CELL DISTRIBUTION WIDTH 20.5 % (11.5-14.5); WHITE BLOOD COUNT 7.4 K/mm3 (4.0-10.0)
[2016-09-28 05:47] LABS: ANION GAP 9 MEQ/L (8-16); BLOOD UREA NITROGEN 11 MG/DL (7-18); CALCIUM LEVEL 7.3 MG/DL (8.8-10.2); CARBON DIOXIDE LEVEL 22 MEQ/L (21-32); CHLORIDE LEVEL 116 MEQ/L (98-107); CREATININE FOR GFR 0.62 MG/DL (0.55-1.02); GLOMERULAR FILTRATION RATE > 60.0 (>39); GLUCOSE, FASTING 98 MG/DL (83-110); MAGNESIUM LEVEL 1.8 MG/DL (1.8-2.4); POTASSIUM SERUM 3.7 MEQ/L (3.5-5.1); SODIUM LEVEL 147 MEQ/L (136-145)
[2016-09-28 05:53] LABS: ADD MORPHOLOGY? YES
[2016-09-28] MEDS ORDERED: LevoFLOXacin 750 MG TABLET PO SCH (06:00)
[2016-09-28] MEDS ORDERED: POTASSIUM CHLORIDE 10 MEQ SR TABLET PO ONE (06:30)
[2016-09-28 06:44] LABS: ANISOCYTOSIS 2+; MICROCYTOSIS 2+; POIKILOCYTOSIS 1+
[2016-09-28 06:45] LABS: HYPOCHROMASIA 1+; OVALOCYTES 1+; SCHISTOCYTES 1+
[2016-09-28 06:46] LABS: POLYCHROMASIA 1+
[2016-09-28 07:10] VITALS: BP 120/60
[2016-09-28] MEDS: ADVAIR HFA 115/21MCG INHALER INH SCH ×2 (07:13→19:57)
[2016-09-28] MEDS: LACTOBACILLUS ACIDOPHILUS CAP (BACID) PO SCH ×3 (08:30→20:13)
[2016-09-28] MEDS: ROSUVASTATIN 10 MG TAB (CRESTOR) PO SCH (08:31)
[2016-09-28] MEDS: METOPROLOL TART 12.5 MG PER 1/2 TAB PO SCH ×2 (08:32→20:12)
[2016-09-28] MEDS: LISINOPRIL 40 MG TAB PO SCH (08:32)
[2016-09-28] MEDS: VITAMIN D 1,000 INTERNATIONAL UNITS TABLET PO SCH (08:33)
[2016-09-28] MEDS: D5W 1,000 ML IV SCH (08:33)
[2016-09-28] MEDS: CALCIUM CARBONATE 500 MG CHEW U/D PO SCH ×2 (08:33→20:13)
[2016-09-28] MEDS: FERROUS SULFATE 325MG TAB PO SCH ×2 (08:33→20:13)
[2016-09-28] MEDS ORDERED: MAG SULF 1GM/100ML (MAG RUN) 1 GM in APPROPRIATE DILUENT 1 EA IV ONE (12:00)
--- NOTE | 2016-09-28 12:24 | IPN ---
DATE: 09/28/2016 SUBJECTIVE: The patient tells me that she is feeling well. She is still having diarrhea. She has a commode next to her bedside, which is filled with watery stool. She denies chest pain, shortness of breath, fevers, chills, nausea or vomiting. OBJECTIVE: VITAL SIGNS: Temperature 96, pulse 79, respiratory rate 18, blood pressure 120/60, oxygen saturation 94% on room air. GENERAL: She is a frail, elderly, cachectic female laying flat in bed in no distress. HEENT: Bitemporal wasting. Moist mucous membranes. No elevation of jugular venous pressure (JVP). CARDIOVASCULAR EXAM: S1, S2, regular. RESPIRATORY EXAM: Clear. ABDOMINAL EXAM: Benign. EXTREMITIES: No clubbing, cyanosis or edema. She is wasted. LABORATORY STUDIES: WBC 7.4, hemoglobin 9.4, hematocrit 30.1, platelet count 329. Chemistry panel: Sodium 147, potassium 3.7, chloride 116, bicarbonate 22, BUN 11, creatinine 0.6, magnesium 1.8. No new microbiology or imaging. ASSESSMENT AND PLAN: This is a 81-year-old female who presented with pneumonia and diarrhea secondary to Clostridium difficile. 1. Pneumonia. The patient had a left lower lobe consolidation with small pleural effusion when she was last in the hospital in July. She did complete a course of antibiotics at that time. Her effusion was not drained. Since she has had a recurrence of this left lower lobe infiltrate with small effusion, I did discuss with Dr. Oden, who was able to review the images. He did not feel that there was any significant effusion there that would benefit the patient from a tap. The patient is currently receiving levofloxacin 750 mg dosing, renally dosed. Tomorrow will be her last day of antibiotic treatment for pneumonia. I will then assume 09/29/2016 to be the first day of her treatment for Clostridium difficile. I will treat her with oral vancomycin for 10 days at the present time. Within the next 2-3 weeks, the patient will have follow-up x-ray to document resolution of her pneumonia or consider even repeat CT scan in the outpatient setting. 2. Clostridium difficile colitis. Likely worsened by antibiotics. She was initially on oral Flagyl empirically, but once it was confirmed, she had Clostridium difficile, I switched her to oral vancomycin given that this is the first occurrence. I will start counting her 10 days of treatment after her last day of antibiotics, which will be 09/29/2016. Once she is able to tolerate a regular diet and diarrhea improving, I suspect she could likely be discharged home with close followup. 3. Iron deficiency anemia. She is normally on Eliquis for atrial fibrillation but this was held secondary to dark, tarry stools associated with diarrhea at the time of admission to the hospital. She did receive one unit of packed red blood cells and repeat fecal occult has been negative. 4. Left renal mass, suspicious for renal cell carcinoma. She has had significant second-hand exposure throughout her life but nonsmoker herself. I have recommended that she undergo an outpatient interventional radiology biopsy. It may explain her cachexia. She also may benefit from Aranesp injections. She was started on iron supplementation while here in the hospital. 5. Protein-calorie malnutrition, possibly related to diarrhea, refect infections, as well as concerning given suspicious left renal mass. For the time being, she is on a clear liquid diet and Ensure. Will advance to regular diet once she is able to tolerate some. 6. Papillary carcinoma of the thyroid, status post resection. She is on Synthroid. 7. Asthma. She is continued nebulizers. Her respiratory status is at her baseline. 8. Dyslipidemia. She is on a statin. 9. Hypertension. Controlled with lisinopril and metoprolol with holding parameters. 10. Deep vein thrombosis (DVT) prophylaxis. No pharmacological agents secondary to recent bleeding. She is no longer on Eliquis. Sequentials and thromboembolism deterrents (TEDs).
[2016-09-28 16:00] VITALS: BP 118/60
[2016-09-28 20:00] VITALS: BP 118/60
[2016-09-29] VITALS: BP 144/71
[2016-09-29 04:00] VITALS: BP 135/89
[2016-09-29] MEDS: D5W 1,000 ML IV SCH ×2 (04:46→23:52)
[2016-09-29] MEDS: SLF 3 ML SYR IV SCH ×3 (04:49→21:57)
[2016-09-29] MEDS: VANCOMYCIN ORAL SOL 250MG/5ML ORAL SYRINGE PO SCH ×4 (05:06→23:52)
[2016-09-29] MEDS: LEVOTHYROXINE 88MCG TABLET (0.088 MG) PO SCH (05:06)
[2016-09-29 05:36] LABS: MAGNESIUM LEVEL 1.9 MG/DL (1.8-2.4)
[2016-09-29 07:08] LABS: BLOOD UREA NITROGEN 6 MG/DL (7-18); CHLORIDE LEVEL 113 MEQ/L (98-107); POTASSIUM SERUM 3.7 MEQ/L (3.5-5.1)
[2016-09-29 07:13] LABS: MEAN CORPUSCULAR HEMOGLOBIN 24.7 pg (27.0-33.0); MEAN CORPUSCULAR HGB CONC 31.7 g/dl (32.0-36.5); MEAN CORPUSCULAR VOLUME 77.9 fl (80.0-96.0); RED CELL DISTRIBUTION WIDTH 20.6 % (11.5-14.5); WHITE BLOOD COUNT 8.8 K/mm3 (4.0-10.0)
[2016-09-29] MEDS: ADVAIR HFA 115/21MCG INHALER INH SCH ×2 (07:13→19:24)
[2016-09-29 07:20] VITALS: BP 158/60
[2016-09-29 07:22] LABS: ANION GAP 9 MEQ/L (8-16); CALCIUM LEVEL 7.6 MG/DL (8.8-10.2); CARBON DIOXIDE LEVEL 21 MEQ/L (21-32); CREATININE FOR GFR 0.61 MG/DL (0.55-1.02); GLOMERULAR FILTRATION RATE > 60.0 (>39); GLUCOSE, FASTING 91 MG/DL (83-110); SODIUM LEVEL 143 MEQ/L (136-145)
[2016-09-29] MEDS: LACTOBACILLUS ACIDOPHILUS CAP (BACID) PO SCH ×3 (08:57→21:57)
[2016-09-29] MEDS: ROSUVASTATIN 10 MG TAB (CRESTOR) PO SCH (08:57)
[2016-09-29] MEDS: FERROUS SULFATE 325MG TAB PO SCH ×2 (08:58→21:57)
[2016-09-29] MEDS: CALCIUM CARBONATE 500 MG CHEW U/D PO SCH ×2 (08:59→21:57)
[2016-09-29] MEDS: LISINOPRIL 40 MG TAB PO SCH (08:59)
[2016-09-29] MEDS: METOPROLOL TART 12.5 MG PER 1/2 TAB PO SCH ×2 (08:59→21:57)
[2016-09-29] MEDS: VITAMIN D 1,000 INTERNATIONAL UNITS TABLET PO SCH (09:00)
--- NOTE | 2016-09-29 10:13 | IPN ---
DATE: 09/29/2016 SUBJECTIVE: The patient tells me that she is feeling well. She is still having diarrhea, loose and watery. She had four episodes yesterday. She denies abdominal pain, nausea, vomiting. OBJECTIVE: VITAL SIGNS: Temperature 97, pulse 80, respiratory rate 20, blood pressure 158/62, oxygen saturation 96% on room air. GENERAL: She is a slim, cachectic, elderly, female laying flat in bed watching [employer] [place]. She does not appear to be in any acute distress. HEENT: Cranial nerves II through XII are grossly intact. She has moist mucous membranes. She has bitemporal wasting. No elevation of central venous pressure. CARDIOVASCULAR EXAM: S1, S2, regular. RESPIRATORY EXAM: Clear. ABDOMINAL EXAM: Benign. EXTREMITIES: No clubbing, cyanosis or edema. LABORATORY STUDIES: WBC 8.8, hemoglobin 9.6, hematocrit 30.3, platelet count 333. Chemistry panel: Sodium 143, potassium 3.7, chloride 113, bicarbonate 21, BUN 6, creatinine 0.6, C-reactive protein is 1. No new microbiology or imaging. ASSESSMENT AND PLAN: This is a 81-year-old female who presented with recurrent pneumonia and Clostridium difficile. 1. Recurrent pneumonia. The patient had a left lower lobe pneumonia with tiny pleural effusion in July. She did complete a course of antibiotics at that time. Her effusion was not drained. Since she has had a repeated recurrence. She presents with a cough and fever and looked to have the same radiographic findings. She has received 6 days of high dose of levofloxacin. Her symptoms have resolved. I did speak with Dr. Oden and reviewed the images and he did not feel that there was any significant effusion that would benefit the patient from a tap. Today is her last day of antibiotics. 09/30/2016 will be the first day of C difficile treatment with oral vancomycin. She should complete a 10 day course of this. Over the next three weeks, the patient will have a repeat chest x-ray to document resolution of her pneumonia. We will consider repeat CT scan as well in the outpatient setting. 2. Clostridium difficile colitis. Likely worsened by antibiotics. She was empirically on oral Flagyl. GI PCR panel was able to be collected and once this was confirmed she was switched to oral vancomycin on 09/30 to 10/10/2016 should be her treatment course with close followup with primary care provider. 3. Iron deficiency anemia. She is normally on Eliquis for atrial fibrillation but this was held secondary to dark, tarry stools associated with diarrhea at the time of admission. Once her diarrhea has resolved, I suspect that she is going to be resume her Eliquis. She did receive one unit of packed red blood cells during her stay and had a positive response, likely related to anticoagulation and active C difficile. 4. Left renal mass, suspicious for renal cell carcinoma. She has had significant history of second-hand exposure throughout her life but nonsmoker herself. She is cachectic. I recommend that she have a biopsy of this as soon as possible in the outpatient setting via interventional radiology. Outpatient referral will be necessary. 5. Protein-calorie malnutrition, possibly related to diarrhea, recurrent infections, and a left renal mass. She is on a clear liquid diet and Ensure. Once the diarrhea has resolved, we will advance her to a more regular diet. 6. Hypothyroidism. She is on Synthroid. 7. Asthma. Respiratory status is at her baseline. She is continued nebulizers while in the hospital. 8. Dyslipidemia. She is on a statin. 9. Hypertension. Controlled with lisinopril and metoprolol with holding parameters. 10. Deep vein thrombosis (DVT) prophylaxis. No pharmacological agents secondary to recent bleeding.
[2016-09-29 13:44] VITALS: BP 141/54
[2016-09-29 18:00] VITALS: BP 144/61
[2016-09-29 22:00] VITALS: BP 141/72
[2016-09-30 02:00] VITALS: BP 139/60
[2016-09-30 06:00] VITALS: BP 153/71
[2016-09-30] MEDS: SLF 3 ML SYR IV SCH ×3 (06:00→21:47)
[2016-09-30 06:02] LABS: MEAN CORPUSCULAR HEMOGLOBIN 24.4 pg (27.0-33.0); MEAN CORPUSCULAR HGB CONC 31.2 g/dl (32.0-36.5); RED CELL DISTRIBUTION WIDTH 20.6 % (11.5-14.5); WHITE BLOOD COUNT 9.4 K/mm3 (4.0-10.0)
[2016-09-30] MEDS: VANCOMYCIN ORAL SOL 250MG/5ML ORAL SYRINGE PO SCH ×4 (06:19→23:33)
[2016-09-30] MEDS: LEVOTHYROXINE 88MCG TABLET (0.088 MG) PO SCH (06:19)
[2016-09-30 06:20] LABS: ANION GAP 7 MEQ/L (8-16); BLOOD UREA NITROGEN 4 MG/DL (7-18); CALCIUM LEVEL 7.7 MG/DL (8.8-10.2); CARBON DIOXIDE LEVEL 26 MEQ/L (21-32); CHLORIDE LEVEL 109 MEQ/L (98-107); GLOMERULAR FILTRATION RATE > 60.0 (>39); GLUCOSE, FASTING 87 MG/DL (83-110); MAGNESIUM LEVEL 1.7 MG/DL (1.8-2.4); POTASSIUM SERUM 3.5 MEQ/L (3.5-5.1); SODIUM LEVEL 142 MEQ/L (136-145)
[2016-09-30] MEDS ORDERED: FIRS1SOL3 PO (06:47)
[2016-09-30] MEDS ORDERED: POTASSIUM CHLORIDE 10 MEQ SR TABLET PO ONE (07:00)
[2016-09-30] MEDS ORDERED: MAG SULF 1GM/100ML (MAG RUN) 1 GM in APPROPRIATE DILUENT 1 EA IV ONE (07:00)
[2016-09-30] MEDS: ADVAIR HFA 115/21MCG INHALER INH SCH ×2 (08:01→19:20)
[2016-09-30] MEDS: FERROUS SULFATE 325MG TAB PO SCH ×2 (09:24→21:44)
[2016-09-30] MEDS: METOPROLOL TART 12.5 MG PER 1/2 TAB PO SCH ×2 (09:24→21:46)
[2016-09-30] MEDS: ROSUVASTATIN 10 MG TAB (CRESTOR) PO SCH (09:24)
[2016-09-30] MEDS: CALCIUM CARBONATE 500 MG CHEW U/D PO SCH ×2 (09:24→21:46)
[2016-09-30] MEDS: LACTOBACILLUS ACIDOPHILUS CAP (BACID) PO SCH ×3 (09:25→21:46)
[2016-09-30] MEDS: VITAMIN D 1,000 INTERNATIONAL UNITS TABLET PO SCH (09:25)
[2016-09-30] MEDS: LISINOPRIL 40 MG TAB PO SCH (09:25)
[2016-09-30 10:00] VITALS: BP 141/73
[2016-09-30 14:00] VITALS: BP 136/77
[2016-09-30] MEDS ORDERED: VANC250C2 PO (15:31)
--- NOTE | 2016-09-30 16:02 | IPN ---
DATE: 09/30/2016 SUBJECTIVE: The patient tells me that she is still having diarrhea. It is loose and watery. She denies abdominal pain, nausea, vomiting, chest pain, fevers, chills. OBJECTIVE: VITAL SIGNS: Temperature 97.6, pulse 69, respiratory rate 18, blood pressure 153/71, oxygen saturation 96% on room air. GENERAL: She is a frail, cachectic, elderly, female laying in bed. She does not appear to be in any acute distress. HEENT: She has moist mucous membranes. No elevation of central venous pressure (CVP). NEUROLOGIC: Cranial nerves II-XII are grossly intact. CARDIOVASCULAR EXAMINATION: S1, S2, regular. RESPIRATORY EXAMINATION: Clear. ABDOMINAL EXAMINATION: Benign. EXTREMITIES: No clubbing, cyanosis, or edema. LABORATORY STUDIES: WBC 9.4, hemoglobin 10.5, hematocrit 33.7, platelet count 374, ESR 10. Chemistry panel: Sodium 142, potassium 3.5, chloride 109, bicarbonate 26, BUN 4, creatinine 0.7, magnesium 1.7 repleted. No new microbiology or imaging. ASSESSMENT AND PLAN: This is a 81-year-old female who presented with recurrent pneumonia and Clostridium (C) difficile. PROBLEM LIST: 1. Recurrent pneumonia. The patient had a left lower lobe pneumonia with tiny pleural effusion in July 2015. She completed a course of antibiotics and her symptoms resolved. She represented once again with the similar complaints. I did discuss the case with Dr. Oden who reviewed the images and did not feel that there was any significant effusion that could be drained. The patient has completed a course of inpatient antibiotics. I recommend she have repeat imaging in the next 2-3 weeks to document clearance of this infection and could consider repeat CT scan in 2-3 weeks. 2. Clostridium (C) difficile colitis, likely worsened by antibiotics. She was empirically on oral Flagyl. However, once the gastrointestinal (GI) PCR panel was actually collected, she was transitioned to oral vancomycin which she is tolerating well. Today is day one of 10 for treatment. A prescription has been sent to the pharmacy to obtain prior authorization. Patient and family services (PFS) consult has been placed. 3. Acute blood loss anemia, iron deficiency anemia. The patient is normally on Eliquis for atrial fibrillation. However, it was held secondary to dark, tarry stools associated with her diarrhea at the time of admission. I feel that it was likely related to a combination of being on Eliquis and Clostridium difficile. Once her diarrhea has resolved, we could consider restarting her on the Eliquis. On occult stool for blood since her hospitalization has been repeated and negative. She received one unit of packed red blood cells (PRBCs) during her stay and had a positive response and has held her counts quite steady since then. 4. Left renal mass, suspicious for renal cell carcinoma. Given she is cachectic, I have suggested undergo an outpatient interventional radiology directed biopsy. An outpatient referral for this will be necessary through her primary care provider. 5. Protein-calorie malnutrition, possibly related to diarrhea, recurrent infections, Clostridium difficile, and renal mass. For the time being, she is on a clear liquid diet and Ensure. Once her diarrhea resolved and she is able to tolerate, I would advance her to a more regular diet. 6. Hypothyroidism. She is on Synthroid. 7. Asthma. He respiratory status is at its baseline. She is on nebulizers while in the hospital. 8. Dyslipidemia. She is on a statin. 9. Hypertension. Controlled with lisinopril and metoprolol with holding parameters. 10. Deep vein thrombosis (DVT) prophylaxis. I will actually start her on heparin as she has held her counts quite steadily and there is no evidence of active ongoing bleeding.
[2016-09-30] MEDS: HEPARIN SOD (PORCINE) 5000 UNITS/ML VIAL SQ SCH ×2 (16:15→21:46)
[2016-09-30 18:00] VITALS: BP 145/69
[2016-09-30 22:00] VITALS: BP 132/63
[2016-10-01 02:00] VITALS: BP 141/68
[2016-10-01] MEDS: VANCOMYCIN ORAL SOL 250MG/5ML ORAL SYRINGE PO SCH ×4 (05:43→23:38)
[2016-10-01] MEDS: LEVOTHYROXINE 88MCG TABLET (0.088 MG) PO SCH (05:43)
[2016-10-01] MEDS: SLF 3 ML SYR IV SCH ×3 (05:43→21:20)
[2016-10-01] MEDS: HEPARIN SOD (PORCINE) 5000 UNITS/ML VIAL SQ SCH ×3 (05:43→21:13)
[2016-10-01 06:00] VITALS: BP 144/65
[2016-10-01 06:27] LABS: ANION GAP 8 MEQ/L (8-16); BLOOD UREA NITROGEN 3 MG/DL (7-18); CARBON DIOXIDE LEVEL 24 MEQ/L (21-32); CHLORIDE LEVEL 112 MEQ/L (98-107); CREATININE FOR GFR 0.57 MG/DL (0.55-1.02); GLOMERULAR FILTRATION RATE > 60.0 (>39); GLUCOSE, FASTING 64 MG/DL (83-110); MAGNESIUM LEVEL 1.8 MG/DL (1.8-2.4); POTASSIUM SERUM 3.8 MEQ/L (3.5-5.1); SODIUM LEVEL 144 MEQ/L (136-145)
[2016-10-01 06:35] LABS: MEAN CORPUSCULAR HEMOGLOBIN 24.4 pg (27.0-33.0); MEAN CORPUSCULAR HGB CONC 31.4 g/dl (32.0-36.5); MEAN CORPUSCULAR VOLUME 77.6 fl (80.0-96.0); RED CELL DISTRIBUTION WIDTH 20.5 % (11.5-14.5)
[2016-10-01] MEDS: ADVAIR HFA 115/21MCG INHALER INH SCH ×2 (08:40→19:43)
[2016-10-01] MEDS: LISINOPRIL 40 MG TAB PO SCH (09:39)
[2016-10-01] MEDS: VITAMIN D 1,000 INTERNATIONAL UNITS TABLET PO SCH (09:39)
[2016-10-01] MEDS: LACTOBACILLUS ACIDOPHILUS CAP (BACID) PO SCH ×3 (09:39→21:12)
[2016-10-01] MEDS: CALCIUM CARBONATE 500 MG CHEW U/D PO SCH ×2 (09:39→21:12)
[2016-10-01] MEDS: FERROUS SULFATE 325MG TAB PO SCH ×2 (09:40→21:13)
[2016-10-01] MEDS: METOPROLOL TART 12.5 MG PER 1/2 TAB PO SCH ×2 (09:40→21:00)
[2016-10-01] MEDS: ROSUVASTATIN 10 MG TAB (CRESTOR) PO SCH (09:40)
[2016-10-01 10:00] VITALS: BP 127/64
[2016-10-01 14:00] VITALS: BP 104/63
[2016-10-01 18:00] VITALS: BP 123/58
[2016-10-01 21:16] VITALS: BP 111/56
--- NOTE | 2016-10-01 23:03 | IPN ---
DATE: 10/01/2016 A 81-year-old female seen at bedside, resting comfortably. She is advancing her diet today. She does appear to be tolerating her meals and she states that she has only had one loose bowel movement this morning. OBJECTIVE: VITAL SIGNS: Temperature is 98.3, pulse 76, respiratory rate 18, blood pressure 127/64, SPO2 is 96% on room air. GENERAL: The patient appears to be in no acute distress. She is alert, pleasant. HEENT: Unremarkable. LUNGS: Clear to auscultation. HEART: Regular rate and rhythm. ABDOMEN: Soft. Bowel sounds are slightly hyperactive. However, she does not have any distension and does not have any abdominal tenderness. No rebound. No peritoneal signs. EXTREMITIES: No edema. No calf tenderness. LABORATORY DATA: White count is 8.0, hemoglobin 10.6, platelets 320,000. Sodium 144, potassium 3.8, chloride 112, bicarbonate 24, anion gap 8, BUN is 3, creatinine 0.57, glucose 64, magnesium 1.8, CRP is 0.47 (Trending down) ASSESSMENT AND PLAN: 1. Recurrent pneumonia involving the left lower lobe, tiny pleural effusion since July 2015. She has completed a course of antibiotics. She does appear to be doing well. The case was discussed with Dr. Oden who did not feel that the patient needed any chest tube or drainage since this does appear to be resolving per his recommendation. The patient should receive repeat CT scan of the chest in 2-3 weeks. 2. Clostridium (C) difficile colitis, likely worsened due to the need of antibiotics for treatment of the pneumonia. She had previously been empirically treated with Flagyl. She has been transitioned to oral vancomycin and outpatient prescriptions have been sent to the pharmacy with prior authorization being taken care by patient and family services. 3. Acute blood loss anemia with iron deficiency. Once her diarrhea has resolved, we will resume her Eliquis, likely to resume on discharge. She has not required any further blood transfusions. 4. Left renal mass suspicious for renal cell carcinoma. This will need to be followed up through her primary care provider who will likely need to place a referral for further followup. Again, that should be done once her Clostridium difficile has been treated appropriately. 5. Protein-calorie malnutrition, likely multifactorial. We will try to advance her diet today and continue on Ensure. 6. Hypothyroidism. Continue Synthroid. 7. Asthma, appears to be stable. We will continue nebulizers while in the hospital. 8. Dyslipidemia. Continue statin. 9. Hypertension. We did have hold parameters on her blood pressure medications. 10. Deep vein thrombosis (DVT) prophylaxis. Continue on heparin. DISPOSITION: Anticipate home discharge in the next 24-48 hours. MTDD
[2016-10-02 02:15] VITALS: BP 113/58
[2016-10-02] MEDS: HEPARIN SOD (PORCINE) 5000 UNITS/ML VIAL SQ SCH (05:36)
[2016-10-02] MEDS: VANCOMYCIN ORAL SOL 250MG/5ML ORAL SYRINGE PO SCH ×2 (05:36→11:45)
[2016-10-02] MEDS: LEVOTHYROXINE 88MCG TABLET (0.088 MG) PO SCH (05:37)
[2016-10-02] MEDS: SLF 3 ML SYR IV SCH (05:41)
[2016-10-02 06:00] VITALS: BP 124/60
[2016-10-02 06:20] LABS: MEAN CORPUSCULAR HEMOGLOBIN 24.6 pg (27.0-33.0); MEAN CORPUSCULAR HGB CONC 31.7 g/dl (32.0-36.5); MEAN CORPUSCULAR VOLUME 77.8 fl (80.0-96.0); WHITE BLOOD COUNT 7.6 K/mm3 (4.0-10.0)
[2016-10-02 06:42] LABS: ANION GAP 12 MEQ/L (8-16); BLOOD UREA NITROGEN 7 MG/DL (7-18); CALCIUM LEVEL 7.6 MG/DL (8.8-10.2); CARBON DIOXIDE LEVEL 23 MEQ/L (21-32); CHLORIDE LEVEL 111 MEQ/L (98-107); CREATININE FOR GFR 0.85 MG/DL (0.55-1.02); GLOMERULAR FILTRATION RATE > 60.0 (>39); GLUCOSE, FASTING 55 MG/DL (83-110); MAGNESIUM LEVEL 1.7 MG/DL (1.8-2.4); SODIUM LEVEL 146 MEQ/L (136-145)
[2016-10-02] MEDS: ADVAIR HFA 115/21MCG INHALER INH SCH (07:25)
[2016-10-02] MEDS: CALCIUM CARBONATE 500 MG CHEW U/D PO SCH (08:54)
[2016-10-02] MEDS: LISINOPRIL 40 MG TAB PO SCH (08:54)
[2016-10-02] MEDS: FERROUS SULFATE 325MG TAB PO SCH (08:54)
[2016-10-02 08:55] VITALS: BP 121/62
[2016-10-02] MEDS: VITAMIN D 1,000 INTERNATIONAL UNITS TABLET PO SCH (08:55)
[2016-10-02] MEDS: LACTOBACILLUS ACIDOPHILUS CAP (BACID) PO SCH (08:55)
[2016-10-02] MEDS: ROSUVASTATIN 10 MG TAB (CRESTOR) PO SCH (08:55)
[2016-10-02] MEDS: METOPROLOL TART 12.5 MG PER 1/2 TAB PO SCH (08:55)
[2016-10-02 10:00] VITALS: BP 121/62
[2016-10-02] MEDS ORDERED: FERR1TAB8 PO (10:46)
--- NOTE | 2016-10-02 11:18 | DSES ---
DATE OF ADMISSION: 09/24/2016 DATE OF DISCHARGE: 10/02/2016 CONSULTATIONS: None. PROCEDURES: None. COMPLICATIONS: None. ADMISSION/DISCHARGE DIAGNOSES: 1. Recurrent pneumonia involving the left lower lobe, tiny pleural effusion which has since resolved. Per Dr. Oden's recommendation, she should receive a repeat CT scan of the chest in 2-3 weeks which we will defer her primary care provider. 2. Clostridium difficile colitis, likely worsened due to antibiotic treatment for her pneumonia. Empirically treated with Flagyl initially, has progressed and did well with oral vancomycin, which she will continue as an outpatient. 3. Acute blood loss anemia with iron deficiency. Her diarrhea has resolved. She likely can resume her Eliquis on discharge. 4. Left renal mass suspicious for renal cell carcinoma. Will defer this to her primary care provider followup. 6. Protein calorie malnutrition, likely multifactorial. 7. Hypothyroidism. 8. Asthma. 9. Dyslipidemia. 10. Hypertension. 11. History of paroxysmal atrial fibrillation on Eliquis. She can likely resume this on discharge. 12. 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 13. History of thalassemia trait. BRIEF HOSPITAL COURSE: Ms. Swain presented to the emergency department on 09/24/2016, had complaints of abdominal cramps, noted to have been treated for community acquired pneumonia in August, was on antibiotics, started developing diarrhea and as an outpatient, it was thought that she may have recurrence of her C. Difficile, temporarily placed on Flagyl; however, this did not help with her symptoms of increasing diarrhea, dark in nature and she did require admission with IV fluid support. Her antibiotic coverage was switched to vancomycin. She did receive one transfusion of 1 unit of packed red blood cells and her hemoglobin and hematocrit have remained normal. Incidentally, her CT of the abdomen and pelvis did demonstrate a left renal enhancing mass suggestive of renal cell carcinoma possibility of colitis, small left pleural effusion after her left lower lobe consolidation. Again, she should have this followed up as an outpatient with repeat CT scan in 2-3 weeks and perhaps further evaluation for possible renal cell carcinoma, which likely will need a kidney biopsy at some time in the future. She elected to have this done as an outpatient. Otherwise, today she does appear to be doing much better. Her bowel movements have improved. She is two record bowel movements yesterday, none today and she is anxious to be discharged home. PHYSICAL EXAMINATION: Temperature is 98.7, pulse 79, respiratory rate is 14, blood pressure 121/62, SPO2 is 96% on room air. GENERAL: The patient appears to be in no acute distress, is alert and oriented. HEENT: Unremarkable. LUNGS: Clear. HEART: Regular rate and rhythm. ABDOMEN: Soft. Unremarkable. EXTREMITIES: No edema or calf tenderness. LABORATORIES: White count 7.6, hemoglobin 9.7, platelets 328,000. Sodium 146, potassium 4.0, chloride 111, bicarb 23, anion gap 12, BUN 7, creatinine 0.85, glucose 55, magnesium 1.7. DISCHARGE CONDITION: Good. DISPOSITION: Discharge to home. DISCHARGE MEDICATIONS: - ferrous sulfate 325 mg twice a day - vancomycin 250 mg every 6 hours for 10 more days - albuterol inhaler as directed - Eliquis 2.5 mg twice a day - aspirin 81 mg daily - calcium 500 mg twice a day - vitamin D3 2000 units daily - Bacid 1 tablet three times a day - Synthroid 88 mcg daily - lisinopril 40 mg daily - magnesium oxide 400 mg twice a day - metoprolol tartrate 12.5 mg twice a day - omeprazole 20 mg daily - PreserVision one capsule twice a day - Crestor 40 mg daily - Advair Diskus 250/50 inhaler one inhalation twice a day DISCHARGE INSTRUCTIONS: 1. Discharge to home. 2. Activity as tolerated. 3. Regular diet. 4. Finish her vancomycin. 5. She should followup with Dr. Serrano in one week. OUTSTANDING ISSUES: She will need a followup CT scan of the chest in 2-3 weeks and further evaluation, possible renal biopsy and further workup to rule out renal cell carcinoma. TRANSITION OF CARE: As outlined above. Repeat CT scan in 2-3 weeks and further workup. FURTHER INSTRUCTIONS: If the patient should develop worsening symptoms, she should seek medical attention. She voices understanding. Discharge took 35 minutes. JENNIFER
[2016-11-13] MEDS ORDERED: BREO1INH3 (18:50)
[2016-11-13] MEDS ORDERED: DIFI200T PO (22:06)
[2016-11-13] MEDS ORDERED: FERR1TAB8 PO (22:20)
[2016-11-13] MEDS ORDERED: D 101TAB PO (22:20)
[2016-11-13] MEDS ORDERED: ROSU40TA PO (22:20)
[2016-11-13] MEDS ORDERED: CALC500T36 PO (22:20)
[2016-11-13] MEDS ORDERED: VITMTA PO (22:20)
== END 2016-10-02 12:59 | disposition home or self-care (01) | DRG 371 ==
LOC: M ED 23:01 → M ED INP 09-24 04:27 → M PCU 09-24 15:25 → M MSPAV 09-29 13:45
PROVIDERS: ADMIT Hospitalist; ATTEND Hospitalist
PROC: 30253N1 (ICD-10-PCS; principal; 2016-09-24)
DX: A04.7 Enterocolitis due to Clostridium difficile (principal); J18.9 Pneumonia, unspecified organism; D62 Acute posthemorrhagic anemia; J90 Pleural effusion, not elsewhere classified; E46 Unspecified protein-calorie malnutrition; D68.32 Hemorrhagic disorder due to extrinsic circulating anticoagulants; I48.0 Paroxysmal atrial fibrillation; Z85.850 Personal history of malignant neoplasm of thyroid; D56.3 Thalassemia minor; J45.909 Unspecified asthma, uncomplicated; E87.6 Hypokalemia; N28.9 Disorder of kidney and ureter, unspecified; E78.5 Hyperlipidemia, unspecified; E89.2 Postprocedural hypoparathyroidism; I10 Essential (primary) hypertension; Z66 Do not resuscitate; E89.0 Postprocedural hypothyroidism; M81.0 Age-related osteoporosis without current pathological fracture; K21.9 Gastro-esophageal reflux disease without esophagitis; K22.70 Barrett's esophagus without dysplasia; Z79.01 Long term (current) use of anticoagulants; Z79.82 Long term (current) use of aspirin; Z79.899 Other long term (current) drug therapy; Z79.51 Long term (current) use of inhaled steroids

== ENCOUNTER → 2016-10-24 | Outpatient (REF) | payer MEDICARE, MEDICAID ==
[~2016-10-24] MED LIST changes: +ASPI81TA24 PO; +BREO1INH3; +BREO1INH3 INH; +CALC500T36 PO; +CALC500T49 PO; +CRES40TA PO; +D 101TAB PO; +DIFI200T PO; +FERR1TAB8 PO; +FIRS1SOL3 PO; +LEVO100T54 PO; +PROAAER10 INH; +ROSU40TA PO; +SYNT88TA2 PO; +VANC1SUS PO; +VANC250C2 PO; +VITMTA PO
== END ==
LOC: M LAB REF 11:48
PROVIDERS: ATTEND Nurse Practitioner Family
DX: D64.9 Anemia, unspecified (principal)

== ENCOUNTER 2016-10-25 09:59 | Outpatient (CLI) | payer MEDICARE, MEDICAID ==
[~2016-10-25 09:59] MED LIST changes: -ASPI81TA24 PO; -BREO1INH3; -BREO1INH3 INH; -CALC500T36 PO; -CRES40TA PO; -D 101TAB PO; -DIFI200T PO; -LEVO100T54 PO; -ROSU40TA PO; -VANC1SUS PO; -VITMTA PO
[2016-10-25] MEDS ORDERED: FUROSEMIDE 20 MG/2 ML VIAL (J1940) IV ONE (10:15)
[2016-11-13] MEDS ORDERED: BREO1INH3 (18:50)
[2016-11-13] MEDS ORDERED: DIFI200T PO (22:06)
[2016-11-13] MEDS ORDERED: CALC500T36 PO (22:20)
[2016-11-13] MEDS ORDERED: D 101TAB PO (22:20)
[2016-11-13] MEDS ORDERED: VITMTA PO (22:20)
[2016-11-13] MEDS ORDERED: FERR1TAB8 PO (22:20)
[2016-11-13] MEDS ORDERED: ROSU40TA PO (22:20)
== END 2016-10-25 15:00 | disposition home or self-care (01) ==
LOC: M INFU 09:59
PROVIDERS: ATTEND Nurse Practitioner Family
DX: D64.9 Anemia, unspecified (principal); Z79.899 Other long term (current) drug therapy
CPT/HCPCS: 36430; J1940; P9016

== ENCOUNTER 2016-11-21 15:57 | Emergency (ER) | payer MEDICARE, MEDICAID ==
[~2016-11-21] VITALS: Ht 152.4 cm; Wt 42.7 kg
[2016-11-21 15:57] VITALS: BP 137/69
[~2016-11-21 15:57] MED LIST changes: +BREO1INH3; +CALC500T36 PO; +D 101TAB PO; +DIFI200T PO; +ROSU40TA PO; +VITMTA PO
[2016-11-21] MEDS ORDERED: DERMABOND TOPICAL SKIN ADHESIVE TOP ONE (19:30)
== END 2016-11-21 19:47 | disposition home or self-care (01) ==
LOC: M ED 15:57
DX: S01.81XA Laceration without foreign body of other part of head, initial encounter (principal); S01.511A Laceration without foreign body of lip, initial encounter; W01.198A Fall on same level from slipping, tripping and stumbling with subsequent striking against other object, initial encounter; Y92.410 Unspecified street and highway as the place of occurrence of the external cause; Y93.01 Activity, walking, marching and hiking; Y99.8 Other external cause status; I10 Essential (primary) hypertension; J45.909 Unspecified asthma, uncomplicated; A04.72 Enterocolitis due to Clostridium difficile, not specified as recurrent; E78.00 Pure hypercholesterolemia, unspecified; Z79.2 Long term (current) use of antibiotics; Z79.51 Long term (current) use of inhaled steroids; Z79.899 Other long term (current) drug therapy

== ENCOUNTER → 2016-11-27 | Outpatient (CLI) | payer MEDICARE, MEDICAID ==
[~2016-11-27] MED LIST changes: +ASPI81TA24 PO; +BREO1INH3 INH; +CRES40TA PO; +LEVO100T54 PO; +VANC1SUS PO
[2016-11-27 15:16] LABS: FREE T4 0.83 NG/DL (0.76-1.46)
== END ==
LOC: M LAB 12:18
PROVIDERS: ATTEND Internal Medicine Endocrinology, Diabetes & Metabolism
DX: C73 Malignant neoplasm of thyroid gland (principal)

== ENCOUNTER → 2016-12-02 | Outpatient (REF) | payer MEDICARE, MEDICAID ==
[2016-12-02 13:43] LABS: PERCENT SATURATION 27.1 % (13.2-45.0)
== END ==
LOC: M LAB REF 13:03
PROVIDERS: ATTEND Internal Medicine
DX: D64.9 Anemia, unspecified (principal); D56.3 Thalassemia minor

== ENCOUNTER 2016-12-24 14:27 | Inpatient (IN) | payer MEDICARE, MEDICAID ==
[~2016-12-24] VITALS: Ht 160 cm; Wt 47.8 kg
[~2016-12-24 14:27] MED LIST changes: -ASPI81TA24 PO; -BREO1INH3 INH; -CRES40TA PO; -LEVO100T54 PO; -VANC1SUS PO
[2016-12-24] MEDS ORDERED: BACITAB PO (15:00)
[2016-12-24] MEDS ORDERED: BREO1INH3 INH (15:00)
[2016-12-24] MEDS ORDERED: CRES40TA PO (15:00)
[2016-12-24] MEDS ORDERED: ASPI81TA24 PO (15:00)
[2016-12-24] MEDS ORDERED: PROAAER10 INH (15:00)
[2016-12-24] MEDS ORDERED: NS 500 ML IV ONE (17:00)
[2016-12-24 17:14] LABS: BASO % 0.1 % (0.0-1.0); EOS # 0.3 10^3/uL (0.0-0.50); EOS % 3.1 % (0.0-3.0); IMMATURE GRANULOCYTE % 0.4 % (0-0); LYMPH # 2.1 10^3/uL (1.5-4.5); LYMPH % 20.5 % (24.0-44.0); MEAN CORPUSCULAR HGB CONC 32.3 g/dl (32.0-36.5); MEAN CORPUSCULAR VOLUME 77.5 fl (80.0-96.0); MONO # 1.1 10^3/uL (0.0-0.8); MONO % 10.6 % (0.0-5.0); NEUTROPHILS # 6.7 10^3/uL (1.8-7.7); NEUTROPHILS % 65.3 % (36.0-66.0); PLATELET COUNT, AUTOMATED 246 10^3/uL (150-450); RED CELL DISTRIBUTION WIDTH 19.1 % (11.5-14.5); WHITE BLOOD COUNT 10.3 10^3/uL (4.0-10.0)
[2016-12-24 17:24] LABS: INR 0.99
[2016-12-24 17:49] LABS: ALBUMIN 3.2 GM/DL (3.2-5.2); ALBUMIN/GLOBULIN RATIO 0.82 (1.00-1.93); BILIRUBIN,DIRECT 0.2 MG/DL (0.0-0.2); BILIRUBIN,TOTAL 0.6 MG/DL (0.2-1.0); CREATININE FOR GFR 2.21 MG/DL (0.55-1.02); GLOMERULAR FILTRATION RATE 22.8 (>39); POTASSIUM SERUM 4.4 MEQ/L (3.5-5.1); TOTAL PROTEIN 7.1 GM/DL (6.4-8.2)
[2016-12-24] MEDS ORDERED: LEVO100T54 PO (20:07)
[2016-12-24] MEDS ORDERED: ACETAMINOPHEN TAB 650MG DOSE (2X325MG) PO PRN (21:00)
[2016-12-24] MEDS ORDERED: ONDANSETRON 4MG/2ML VIAL (J2405) IV PRN (21:00)
[2016-12-24] MEDS ORDERED: ALBUTEROL SULFATE 2.5 MG/0.5 ML INH NEB SOLN NEB PRN (22:00)
[2016-12-24] MEDS: ADVAIR HFA 230/21MCG INHALER INH SCH (22:11)
[2016-12-24] MEDS: NS 1,000 ML IV SCH (22:21)
--- NOTE | 2016-12-24 22:32 | HPEPDOC ---
General Date of Admission Dec 24, 2016 at 20:50 Primary Care Physician: Jr Serrano Collins Attending Physician: Jose Alfredo Garcia MD Chief Complaint The patient is a 81-year-old female admitted with a reason for visit of Clostridium Difficile Diarrhea, Diarrhea. History of Present Illness Patient is a 81-year-old female past medical history significant for recent nephrectomy for possible cancer, recurrent Clostridium difficile infections, hypothyroidism, history of paroxysmal atrial fibrillation and asthma presents to the emergency room with diarrhea. Patient recently had nephrectomy for possible cancer of her left kidney. This was performed December 18 at [facility] in [facility]. Patient had been discharged this past Friday. Right before discharge patient received a suppository to help her have a bowel movement. Since then patient had multiple bowel movements. She says it happens very frequently. Was unable to give me a number of how often. Patient had bowel movements until yesterday evening, Friday. Patient's daughter went to [employer] and purchased some antidiarrheal medications on the morning of admission. Patient took 2 of these and has not loose stool since previous evening. Patient went to primary care physician's office today. Was told to watch it for now and had some labs performed. Patient was called and told to go to the ER because she was very dehydrated. Upon arrival patient had lab work performed and was given a bolus of IV fluid 500 mL. She is not complaining of any abdominal pain or chest pain. Patient denies any pain at all. Has been trying to keep up with the diarrhea and is still eating and drinking but not as much as usual. Last time patient ate was this afternoon. Patient denies any recent antibiotic use. She has not used any stool softener since coming home. Patient reports having a cough but this is chronic and has been productive for some time. Denies any lightheadedness or dizziness. Denies any headache. Hemoglobin on exam is a 8.1 which is lower than previous lab from November 15. Patient does have chronic anemia. No active bleeding on exam. Denies any bright red blood per rectum or dark tarry stools. No vomiting. Patient denies fever or chills but daughter admits patient had a mild temperature in the previous hospital on Friday evening. Home Medications Scheduled (Preservision Areds) 1 Cap Cap, 1 CAP PO BID, (Reported) Aspirin (Aspirin EC) 81 Mg Tab, 81 MG PO DAILY, (Reported) Ferrous Sulfate (Ferrous Sulfate) 325 Mg Tab, 325 MG PO DAILY, (Reported) Fluticasone/Vilanterol (Breo Ellipta 200-25 Mcg/INH) 1 Inh Inh, 1 PUFF INH DAILY , (Reported) Lactobacillus Acidophilus (Bacid) 1 Tab Tab, 1 TAB PO BID, (Reported) Levothyroxine Sodium (Levoxyl) 100 Mcg Tab, 100 MCG PO DAILY, (Reported) Lisinopril (Lisinopril) 40 Mg Tab, 40 MG PO DAILY, (Reported) Magnesium Oxide (Magnesium Oxide) 400 Mg Tab, 400 MG PO TID, (Reported) Multivitamins *[facility] STOCKED* (Thera M Plus *[facility] STOCKED*) 1 Tab Tab, 1 TAB PO DAILY, (Reported) Omeprazole (Omeprazole) 20 Mg Cap, 20 MG PO DAILY, (Reported) Oyster Shell Calcium (Calcium) 500 Mg Tab, 500 MG PO BID, (Reported) Rosuvastatin Calcium (Crestor) 40 Mg Tab, 40 MG PO DAILY, (Reported) Scheduled PRN Albuterol Sulfate (Proair Hfa) 108 Mcg/Act Aer, 2 PUFF INH QID PRN for SHORTNESS OF BREATH, (Reported) Allergies Coded Allergies: No Known Drug Allergy (Verified Allergy, Unknown, 05/24/12) Past Medical History Medical History Recent left nephrectomy Recurrent C diff Papillary carcinoma thyroid, Throidectomy, hypothyroidism Abnormal mammogram Paroxysmal atrial fibrillation Asthma Dyslipidemia Osteoporosis GERD Thalassemia trait Surgical History Nephrectomy Thyroidectomy Cataract surgery bilateral Family History Significant Family History: Noncontributory Social History * Smoker: Denies Alcohol: Denies Drugs: denies Recent Travel/Sick Contacts: Denies: Recent travel Patient lives at home by herself. Daughter has been living with her since surgery. Review of Symptoms Constitutional: Reports: Fever (mild temp in previous hospital per daughter), Other (No lightheadedness or dizziness. ) Eyes: Denies: Vision change ENT: Denies: Head Aches Skin: Denies: Rash, Lesions Pulmonary: Reports: Cough (productive, clear), Denies: Dyspnea Cardiovascular: Denies: Chest Pain, Palpitations Gastrointestinal: Reports: Vomiting (one time vomit with coughing), Denies: Nausea, Abdominal Pain Genitourinary: Denies: Dysuria, Frequency Hematologic: Reports: Bruising (abdomen post surgery) Endocrine: Denies: Polydipsia, Polyphagia Musculoskeletal: Reports: Other Symptoms (No pain.), Denies: Neck Pain, Back Pain, Shoulder Pain Neurological: Denies: Weakness, Numbness, Change in speech, Confusion Psych: Reports: Mood Normal Physical Examination General Exam: Positive: Alert, Cooperative, No Acute Distress Eye Exam: Positive: PERRLA, EOMI, Negative: Sclera icteric ENT Exam: Positive: Atraumatic Neck Exam: Positive: Supple Chest Exam: Positive: Clear to auscultation, Negative: Rhonchi, Wheezing Abdomen Exam: Positive: Normal bowel sounds, Other (enlarged mass, center abdomen, fluid filled. Mild bruising abdomen. ) Extremity Exam: Negative: Edema Psych Exam: Positive: Oriented x 3 Vital Signs Vital Signs Date Time Temp Pulse Resp B/P (MAP) Pulse Ox O2 Delivery O2 Flow Rate FiO2 12/24/16 18:42 72 16 133/60 (84) 98 Room Air 12/24/16 14:29 98.6 Laboratory Data Labs 24H Laboratory Tests 2 12/24/16 16:57: Immature Granulocyte % (Auto) 0.4H, White Blood Count 10.3H, Red Blood Count 3.24L, Hemoglobin 8.1L, Hematocrit 25.1L, Mean Corpuscular Volume 77.5L, Mean Corpuscular Hemoglobin 25.0L, Mean Corpuscular Hemoglobin Concent 32.3, Red Cell Distribution Width 19.1H, Platelet Count 246, Neutrophils (%) (Auto) 65.3, Lymphocytes (%) (Auto) 20.5L, Monocytes (%) (Auto) 10.6H, Eosinophils (%) (Auto ) 3.1H, Basophils (%) (Auto) 0.1, Neutrophils # (Auto) 6.7, Lymphocytes # (Auto ) 2.1, Monocytes # (Auto) 1.1H, Eosinophils # (Auto) 0.3, Basophils # (Auto) 0.0 , Immature Granulocyte # (Auto) 0.0, Nucleated Red Blood Cells % (auto) 0.0, Prothrombin Time 13.2, Prothromb Time International Ratio 0.99, Anion Gap 10, Glomerular Filtration Rate 22.8L, Lactic Acid Level 1.2, Calcium Level 9.0, Aspartate Amino Transf (AST/SGOT) 23, Alanine Aminotransferase (ALT/SGPT) 13, Alkaline Phosphatase 75, Total Bilirubin 0.6, Direct Bilirubin 0.2, Total Protein 7.1, Albumin 3.2, Albumin/Globulin Ratio 0.82L, Lipase 394H 12/24/16 19:02: Urine Appearance HAZY, Urine Color YELLOW, Urine pH 5.0, Urine Specific [place] 1.014, Urine Protein 1+H, Urine Glucose (UA) NEGATIVE, Urine Ketones NEGATIVE, Urine Urobilinogen 0.2, Urine Bilirubin NEGATIVE, Urine Leukocyte Esterase NEGATIVE, Urine Blood NEGATIVE, Urine Nitrite NEGATIVE, Urine WBC (Auto) 2, Urine RBC (Auto) 1, Urine Hyaline Casts (Auto) 0, Urine Bacteria (Auto) 1+H, Urine Squamous Epithelial Cells 1, Urine Amorphous Sediment SMALLH, Urine Mucus (Auto) SMALL, Urine Sperm (Auto) CBC/BMP Laboratory Tests 12/24/16 16:57 Red Blood Count 3.24 L, Mean Corpuscular Volume 77.5 L, Mean Corpuscular Hemoglobin 25.0 L, Mean Corpuscular Hemoglobin Concent 32.3, Red Cell Distribution Width 19.1 H, Neutrophils (%) (Auto) 65.3, Lymphocytes (%) (Auto) 20.5 L, Monocytes (%) (Auto) 10.6 H, Eosinophils (%) (Auto) 3.1 H, Basophils (% ) (Auto) 0.1, Neutrophils # (Auto) 6.7, Lymphocytes # (Auto) 2.1, Monocytes # ( Auto) 1.1 H, Eosinophils # (Auto) 0.3, Basophils # (Auto) 0.0 Assessment/Plan 1. Diarrhea Patient has a history of recurrent clostridium difficile infections. Last infection being October 2016. Ordering GI panel. Patient has not had any stool since arriving to the ER. We'll monitor patient for now. No antidiarrheal medications at this time. Patient does have a mild elevated white blood cell count but is afebrile. Monitor vitals. Repeat CBC in the morning. 2. Elevated Creatinine Patient has elevated creatinine on exam. This may be secondary to decreased oral intake and diarrhea. Patient has had a recent nephrectomy. Starting IV fluids 100 mL an hour. Encouraging patient to continue oral intake. Monitor for diarrhea. 3. Anemia, chronic Patient does have chronic anemia secondary to iron deficiency. Currently taking iron supplements. Patient also has had recent surgery and this may be secondary to blood loss. She also has had a nephrectomy this may be secondary to this procedure. Will repeat H&H this evening and CBC in the morning. Blood consult has been obtained and will type and screen. Monitor for now. 4. Asthma Patient has a history of asthma. She uses inhalers at home. No recent change in her cough. Has chronic productive cough. Continue home medication and nebulizers as needed. Monitor. 5. Recent nephrectomy Patient had recent nephrectomy [facility] Dec 18, 2016. Requesting records from his hospitalization. Monitor patient's kidney function. 6. Hypertension Continuing home medications. Monitor vitals. 7. History of Paroxysmal atrial fibrilation Normal pulse on exam. Monitor for now. Continue home medications. Not on anticoagulation at this time. CHADs2 score is +2 points. Will give patient heparin subq for now. Continue aspirin 81 mg. 8. Dyslipidemia Continue home medication. 9. GERD Continue home medication. Plan / VTE VTE Prophylaxis Ordered?: Yes GME ATTESTATION GME ATTESTATION My preceptor for this patient encounter was physically present in the building during the encounter and was fully available. As needed, all aspects of the patient interview, examination, medical decision making process, and medical care plan development were reviewed and approved by the preceptor. Preceptor is aware and concurs with the plan as stated in the body of this note and will attest to such by his/her cosignature. JOSE LUU DO Dec 24, 2016 22:17
[2016-12-25 00:03] VITALS: BP 122/55
[2016-12-25] MEDS: OYSTER SHELL CALCIUM 500 MG TAB PO SCH ×3 (00:40→20:29)
[2016-12-25] MEDS: LACTOBACILLUS ACIDOPHILUS CAP (BACID) PO SCH ×3 (00:40→20:29)
[2016-12-25] MEDS: HEPARIN SOD (PORCINE) 5000 UNITS/ML VIAL SC SCH ×3 (00:40→20:29)
[2016-12-25] MEDS: MAGNESIUM OXIDE 400 MG TAB (MAG-OX) PO SCH ×4 (00:41→20:29)
[2016-12-25 06:00] VITALS: BP 123/55
[2016-12-25] MEDS: LEVOTHYROXINE 100MCG TABLET (0.1MG) PO SCH (06:02)
[2016-12-25 06:35] LABS: MEAN CORPUSCULAR HEMOGLOBIN 24.5 pg (27.0-33.0); MEAN CORPUSCULAR HGB CONC 31.6 g/dl (32.0-36.5); MEAN CORPUSCULAR VOLUME 77.3 fl (80.0-96.0); PLATELET COUNT, AUTOMATED 185 10^3/uL (150-450); RED CELL DISTRIBUTION WIDTH 18.7 % (11.5-14.5); WHITE BLOOD COUNT 5.8 10^3/uL (4.0-10.0)
[2016-12-25 06:52] LABS: CALCIUM LEVEL 8.1 MG/DL (8.8-10.2); CREATININE FOR GFR 1.86 MG/DL (0.55-1.02); GLOMERULAR FILTRATION RATE 27.8 (>39); MAGNESIUM LEVEL 2.1 MG/DL (1.8-2.4); POTASSIUM SERUM 4.1 MEQ/L (3.5-5.1)
[2016-12-25] MEDS: ADVAIR HFA 230/21MCG INHALER INH SCH ×2 (07:43→20:05)
[2016-12-25] MEDS: NS 1,000 ML IV SCH (09:03)
[2016-12-25] MEDS: FERROUS SULFATE 325MG TAB PO SCH (09:04)
[2016-12-25] MEDS: LISINOPRIL 40 MG TAB PO SCH (09:04)
[2016-12-25] MEDS: ASPIRIN 81 MG ENTERIC TAB PO SCH (09:04)
[2016-12-25] MEDS: ROSUVASTATIN 10 MG TAB (CRESTOR) PO SCH (09:04)
[2016-12-25] MEDS: MULTIVITAMINS/MINERALS THERAP 1 TAB PO SCH (09:04)
[2016-12-25] MEDS: OMEPRAZOLE 20 MG CAP PO SCH (09:05)
--- NOTE | 2016-12-25 09:39 | IPNPDOC ---
Subjective Date Seen The patient was seen on 12/25/16. Subjective Chief Complaint/HPI Patient seen and examined at the bedside this morning. States that her diarrhea has resolved, and notes that she is feeling better this morning. She does still state some generalized weakness, but denies any other acute complaints this time. Objective Physical Examination General Exam: Positive: Alert, Cooperative ENT Exam: Positive: Atraumatic, Mucous membr. moist/pink Neck Exam: Negative: JVD Chest Exam: Positive: Clear to auscultation, Normal air movement Heart Exam: Positive: Rate Normal, Normal S1, Normal S2 Abdomen Exam: Positive: Soft, Negative: Tenderness Extremity Exam: Negative: Tenderness, Swelling Psych Exam: Positive: Oriented x 3 Assessment /Plan Plan/VTE VTE Prophylaxis Ordered?: Yes Plan Diarrhea in a Patient with a Hx of C. Diff The patient was treated for C. Diff with Dificid during an admission here in 2016 She did report an increase in frequency of stools over the past few days, and took an antidiarrheal medication at home prior to coming to the ER She has not had any more loose stools since being admitted here, and notes that she did have a solid BM this AM WBC wnl, and patient afebrile this AM--We will keep her off any antibiotics and forego pursuing stool transplantation for recurrent C. Diff at this time given the resolution of diarrhea Continue to monitor Elevation of Serum Creatinine, Multifactorial in etiology The patient does have a history of Left Sided Partial Nephrectomy at [facility] on 12/18/16 for a large, solid mass noted in the inferior left kidney on CT on 09/24/16 and again on U/S Imaging on 11/13 The patient is unaware of the results of the pathology--Order to obtain records from [facility] placed The patient's decreased PO Intake and Diarrhea may have also attributed to elevation IVF Hydration ordered We will F/U on serum BMP--however I do suspect the patient's serum Cr will be higher than her last noted baseline here given recent Nephrectomy Acute on Chronic Anemia Hgb noted to be 6.8 this AM No overt source of bleeding appreciated, however the patient did have recent Nephrectomy Likely dilutional component as well given IVF Hydration Patient does have chronic anemia secondary to iron deficiency, baseline Hgb usually in 8s Cont iron supplementation 1 Unit of PRBC's ordered this AM--we will repeat an H&H 2 hrs post transfusion and order another unit for Hgb <8.0 Asthma, stable Continue home regimen as ordered Large, solid mass noted in the inferior left kidney on CT on 09/24/16 and again on U/S Imaging on 11/13 s/p Left sided nephrectomy at [facility] Dec 18, 2016 Records from [facility] pending Hypertension Continuing home regimen History of Paroxysmal atrial fibrilation Not on any rate controlling meds or Anticoagulation Rate appears to be controlled Continue aspirin 81 mg Dyslipidemia Continue Statin GERD PPI Hypothyroidism Continue levothyroxine DVT prophylaxis Heparin subcutaneous Disposition-anticipate discharge in next 24 hours if H&H remains stable, PT Clearance. VS, I&O, 24H, Fishbone Vital Signs/I&O Vital Signs Date Time Temp Pulse Resp B/P (MAP) Pulse Ox O2 Delivery O2 Flow Rate FiO2 12/25/16 06:00 98.0 71 8 123/55 (77) 97 Room Air Laboratory Data 24H LABS Laboratory Tests 2 12/24/16 16:57: Immature Granulocyte % (Auto) 0.4H, White Blood Count 10.3H, Red Blood Count 3.24L, Hemoglobin 8.1L, Hematocrit 25.1L, Mean Corpuscular Volume 77.5L, Mean Corpuscular Hemoglobin 25.0L, Mean Corpuscular Hemoglobin Concent 32.3, Red Cell Distribution Width 19.1H, Platelet Count 246, Neutrophils (%) (Auto) 65.3, Lymphocytes (%) (Auto) 20.5L, Monocytes (%) (Auto) 10.6H, Eosinophils (%) (Auto ) 3.1H, Basophils (%) (Auto) 0.1, Neutrophils # (Auto) 6.7, Lymphocytes # (Auto ) 2.1, Monocytes # (Auto) 1.1H, Eosinophils # (Auto) 0.3, Basophils # (Auto) 0.0 , Immature Granulocyte # (Auto) 0.0, Nucleated Red Blood Cells % (auto) 0.0, Prothrombin Time 13.2, Prothromb Time International Ratio 0.99, Anion Gap 10, Glomerular Filtration Rate 22.8L, Lactic Acid Level 1.2, Calcium Level 9.0, Aspartate Amino Transf (AST/SGOT) 23, Alanine Aminotransferase (ALT/SGPT) 13, Alkaline Phosphatase 75, Total Bilirubin 0.6, Direct Bilirubin 0.2, Total Protein 7.1, Albumin 3.2, Albumin/Globulin Ratio 0.82L, Lipase 394H 12/24/16 19:02: Urine Appearance HAZY, Urine Color YELLOW, Urine pH 5.0, Urine Specific [place] 1.014, Urine Protein 1+H, Urine Glucose (UA) NEGATIVE, Urine Ketones NEGATIVE, Urine Urobilinogen 0.2, Urine Bilirubin NEGATIVE, Urine Leukocyte Esterase NEGATIVE, Urine Blood NEGATIVE, Urine Nitrite NEGATIVE, Urine WBC (Auto) 2, Urine RBC (Auto) 1, Urine Hyaline Casts (Auto) 0, Urine Bacteria (Auto) 1+H, Urine Squamous Epithelial Cells 1, Urine Amorphous Sediment SMALLH, Urine Mucus (Auto) SMALL, Urine Sperm (Auto) 12/25/16 05:44: Nucleated Red Blood Cells % (auto) 0.0, Anion Gap 7L, Glomerular Filtration Rate 27.8L, Calcium Level 8.1L, Blood Urea Nitrogen 55H, Creatinine 1.86H, Sodium Level 142, Potassium Level 4.1, Chloride Level 111H, Carbon Dioxide Level 24, Magnesium Level 2.1 CBC/BMP Laboratory Tests 12/24/16 16:57 Red Blood Count 3.24 L, Mean Corpuscular Volume 77.5 L, Mean Corpuscular Hemoglobin 25.0 L, Mean Corpuscular Hemoglobin Concent 32.3, Red Cell Distribution Width 19.1 H, Neutrophils (%) (Auto) 65.3, Lymphocytes (%) (Auto) 20.5 L, Monocytes (%) (Auto) 10.6 H, Eosinophils (%) (Auto) 3.1 H, Basophils (% ) (Auto) 0.1, Neutrophils # (Auto) 6.7, Lymphocytes # (Auto) 2.1, Monocytes # ( Auto) 1.1 H, Eosinophils # (Auto) 0.3, Basophils # (Auto) 0.0 12/25/16 00:34 12/25/16 05:44 Red Blood Count 2.78 L, Mean Corpuscular Volume 77.3 L, Mean Corpuscular Hemoglobin 24.5 L, Mean Corpuscular Hemoglobin Concent 31.6 L, Red Cell Distribution Width 18.7 H, Calcium Level 8.1 L Microbiology Microbiology 12/25/16 Gastrointestinal Tract Panel (PCR) - Final, Complete Clostridium Difficile A/B VEL GUILLORY MD Dec 25, 2016 09:39
[2016-12-25 14:00] VITALS: BP 136/63
[2016-12-25 22:00] VITALS: BP 140/65
[2016-12-26] MEDS: NS 1,000 ML IV SCH (05:10)
[2016-12-26 06:00] VITALS: BP 144/71
[2016-12-26] MEDS: LEVOTHYROXINE 100MCG TABLET (0.1MG) PO SCH (06:22)
[2016-12-26 06:38] LABS: MEAN CORPUSCULAR HEMOGLOBIN 25.4 pg (27.0-33.0); MEAN CORPUSCULAR HGB CONC 32.9 g/dl (32.0-36.5); MEAN CORPUSCULAR VOLUME 77.3 fl (80.0-96.0); PLATELET COUNT, AUTOMATED 190 10^3/uL (150-450); RED CELL DISTRIBUTION WIDTH 17.9 % (11.5-14.5); WHITE BLOOD COUNT 5.6 10^3/uL (4.0-10.0)
[2016-12-26 06:57] LABS: CALCIUM LEVEL 7.9 MG/DL (8.8-10.2); CREATININE FOR GFR 1.62 MG/DL (0.55-1.02); GLOMERULAR FILTRATION RATE 32.6 (>39); POTASSIUM SERUM 4.3 MEQ/L (3.5-5.1)
[2016-12-26] MEDS: ADVAIR HFA 230/21MCG INHALER INH SCH ×2 (07:42→19:58)
[2016-12-26 09:07] VITALS: BP 143/90
[2016-12-26] MEDS: HEPARIN SOD (PORCINE) 5000 UNITS/ML VIAL SC SCH (10:14)
[2016-12-26] MEDS: LACTOBACILLUS ACIDOPHILUS CAP (BACID) PO SCH ×2 (10:59→22:06)
[2016-12-26] MEDS: OMEPRAZOLE 20 MG CAP PO SCH (11:00)
[2016-12-26] MEDS: LISINOPRIL 40 MG TAB PO SCH (11:00)
[2016-12-26] MEDS: MAGNESIUM OXIDE 400 MG TAB (MAG-OX) PO SCH ×3 (11:01→22:06)
[2016-12-26] MEDS: OYSTER SHELL CALCIUM 500 MG TAB PO SCH ×2 (11:01→22:07)
[2016-12-26] MEDS: FERROUS SULFATE 325MG TAB PO SCH (11:02)
[2016-12-26] MEDS: MULTIVITAMINS/MINERALS THERAP 1 TAB PO SCH (11:02)
[2016-12-26] MEDS: ROSUVASTATIN 10 MG TAB (CRESTOR) PO SCH (11:18)
--- NOTE | 2016-12-26 12:24 | REP ---
CT of the abdomen pelvis without IV and oral contrast: Comparison is 09/24/2016. There has been interim left nephrectomy. There is a small left pleural effusion with atelectasis of the adjacent lower lobe of the left lung. There is also an infiltrate in the lower lobe of the left lung . This is similar to the prior study. There is a collection of multiple air bubbles in the anterior abdominal wall on the right over the pelvis. In the midline of the pelvis adjacent to these air bubbles is a radio-opaque collection of fluid containing multiple air bubbles. This may represent anterior abdominal wall trauma and hematoma. There is pneumoperitoneum along the anterior peritoneal wall in the pelvis and abdomen. There is a collection of fluid and air in the left renal fossa. This could represent postsurgical hematoma or abscess. The pancreas is unremarkable. There is a gallbladder calculus as previously. There is a tiny volume of free air adjacent to the gallbladder. The tiny volume of air in the along the falciform ligament. Pancreas and spleen are unremarkable. The adrenals are unremarkable. The unenhanced right kidney is unremarkable. Abdominal aorta is unremarkable. On the comparison study there was wall thickening of the descending colon and sigmoid colon compatible with colitis. I suspect this is again present but better visualized previously with intravenous contrast. Pelvis: There is a trace of ascites. The bladder, uterus and adnexa are unremarkable. There is no mesenteric, retroperitoneal or pelvic adenopathy. Impression: There is a collection of tiny air bubbles in the anterior wall of the pelvis on the right. In the midline adjacent to the air bubbles there is a radiodense fluid collection containing multiple air bubbles. There is pneumoperitoneum. There is a collection of fluid and air bubbles in the left renal fossa which could represent hematoma or abscess. There is a left pleural effusion. There is an infiltrate in the lower lobe of the left lung. Signed by Malik Hernandez MD 12/26/2016 12:16 P
[2016-12-26] MEDS ORDERED: VANCOMYCIN ORAL SOL 250MG/5ML ORAL SYRINGE PO SCH (14:00)
[2016-12-26 14:11] VITALS: BP 131/58
--- NOTE | 2016-12-26 16:08 | IPNPDOC ---
Text Note Date of Service The patient was seen on 12/26/16. NOTE Patient seen and examined at the bedside this morning. States that her diarrhea has improved 2 BM overnight, and notes that she is feeling better this morning. She does still state some generalized weakness, but denies any other acute complaints this time. General Exam: Positive: Alert, Cooperative ENT Exam: Positive: Atraumatic, Mucous membr. moist/pink Neck Exam: Negative: JVD Chest Exam: Positive: Clear to auscultation, Normal air movement Heart Exam: Positive: Rate Normal, Normal S1, Normal S2 Abdomen Exam: soft surgical scar dried blood, +Bs, nontender +bruise and hematoma Extremity Exam: Negative: Tenderness, Swelling Psych Exam: Positive: Oriented x 3 Assessment /Plan 81-year-old female past medical history significant for recent nephrectomy for possible cancer, recurrent Clostridium difficile infections, hypothyroidism, history of paroxysmal atrial fibrillation and asthma presents to the emergency room with diarrhea. Patient recently had nephrectomy for possible cancer of her left kidney. This was performed December 18 at [facility] in [facility]. Diarrhea in a Patient with a Hx of C. Diff diarrhea improved prior to treatment for c diff, but c diff PCR positive, consulted ID for guidance, possible stool transplant IVF given Elevation of Serum Creatinine, Multifactorial in etiology The patient does have a history of Left Sided Partial Nephrectomy at [facility] on 12/18/16 for a large, solid mass noted in the inferior left kidney on CT on 09/24/16 and again on U/S Imaging on 11/13 The patient is unaware of the results of the pathology--Order to obtain records from [facility] The patient's decreased PO Intake and Diarrhea may have also attributed to elevation IVF Hydration ordered f/u bun cr, given Cr improved hold nephrology consult, need outpatient nephrology Acute on Chronic Anemia, with acute blood loss anemia f/u hh 2/[address] abd showed intra-abd fluid/hematoma d/w urology Dr Frazier at [facility], normal post op finding, no indication for transfer transfused 2 U PRBC FOBT neg hold ASA and ac for vera Asthma, stable Continue home regimen as ordered Large, solid mass noted in the inferior left kidney on CT on 09/24/16 and again on U/S Imaging on 11/13 s/p Left sided nephrectomy at [facility] Dec 18, 2016 Records from [facility] pending Hypertension Continuing home regimen History of Paroxysmal atrial fibrilation Not on any rate controlling meds or Anticoagulation Rate appears to be controlled Continue aspirin 81 mg Dyslipidemia Continue Statin GERD PPI Hypothyroidism Continue levothyroxine DVT prophylaxis yoli and scd given acute blood loss anemia Disposition-anticipate discharge in next 24 hours if H&H remains stable, PT Clearance.ID consult VS,Aleksandar, I+O VS, Aleksandar, I+O Laboratory Tests 12/26/16 06:23 Red Blood Count 3.70 L, Mean Corpuscular Volume 77.3 L, Mean Corpuscular Hemoglobin 25.4 L, Mean Corpuscular Hemoglobin Concent 32.9, Red Cell Distribution Width 17.9 H, Calcium Level 7.9 L 12/26/16 13:15 Vital Signs Date Time Temp Pulse Resp B/P (MAP) Pulse Ox O2 Delivery O2 Flow Rate FiO2 12/26/16 14:11 99.3 95 16 131/58 (82) 98 Room Air I&O- Last 24 Hours up to 6 AM 12/27/16 06:00 Intake Total 970 ml Output Total 300 ml Balance 670 ml TO CASTANO MD Dec 26, 2016 16:08
--- NOTE | 2016-12-26 19:11 | REP ---
AP PORTABLE CHEST: 12/26/2016. Comparison: Portable chest 09/24/2016, CT chest 10/25/2016, 09/24/2016. Clinical history: Cough. Findings: Silhouetting of the left diaphragm and retrocardiac dense opacity left lower lobe as seen on previous chest x-ray and multiple prior CTs showing consolidative atelectasis and air bronchograms with bronchiectasis in that left lower lobe. Small effusion difficult to exclude. The right lung shows a sharply defined CP angle. There is underlying fibrosis. Some patchy atelectasis and streaky densities. I do not see air bronchograms in the upper lung zones. There is cardiomegaly with some venous hypertension but no olive edema. The bronchiectatic changes are suspected in their infrahilar right lower lobe as well. Impression: 1. Cardiomegaly with some venous hypertension and no olive edema. 2. Some underlying chronic fibrosis, COPD and bronchiectasis with dense opacity retrocardiac left lower lobe as seen on previous chest x-ray and multiple CTs demonstrating bronchiectasis and air bronchograms for consolidative atelectasis or infiltrate in the left lower lobe. Question of a small left effusion. Signed by Zaire Thomas MD 12/26/2016 07:50 P
[2016-12-26 22:00] VITALS: BP 152/70
[2016-12-26] MEDS: VANCOMYCIN ORAL SOL 250MG/5ML ORAL SYRINGE PO SCH (22:07)
[2016-12-27] MEDS: LEVOTHYROXINE 100MCG TABLET (0.1MG) PO SCH (05:35)
[2016-12-27 06:00] VITALS: BP 135/64
[2016-12-27 06:43] LABS: MEAN CORPUSCULAR HEMOGLOBIN 25.2 pg (27.0-33.0); MEAN CORPUSCULAR HGB CONC 32.5 g/dl (32.0-36.5); MEAN CORPUSCULAR VOLUME 77.5 fl (80.0-96.0); PLATELET COUNT, AUTOMATED 233 10^3/uL (150-450); RED CELL DISTRIBUTION WIDTH 18.1 % (11.5-14.5); WHITE BLOOD COUNT 6.4 10^3/uL (4.0-10.0)
[2016-12-27 07:04] LABS: CALCIUM LEVEL 7.7 MG/DL (8.8-10.2); CREATININE FOR GFR 1.41 MG/DL (0.55-1.02); GLOMERULAR FILTRATION RATE 38.3 (>39); POTASSIUM SERUM 4.3 MEQ/L (3.5-5.1)
[2016-12-27] MEDS: ADVAIR HFA 230/21MCG INHALER INH SCH (07:09)
[2016-12-27] MEDS: LACTOBACILLUS ACIDOPHILUS CAP (BACID) PO SCH (07:54)
[2016-12-27] MEDS: FERROUS SULFATE 325MG TAB PO SCH (07:54)
[2016-12-27] MEDS: MAGNESIUM OXIDE 400 MG TAB (MAG-OX) PO SCH (07:54)
[2016-12-27] MEDS: ROSUVASTATIN 10 MG TAB (CRESTOR) PO SCH (07:54)
[2016-12-27] MEDS: MULTIVITAMINS/MINERALS THERAP 1 TAB PO SCH (07:55)
[2016-12-27] MEDS: LISINOPRIL 40 MG TAB PO SCH (07:55)
[2016-12-27] MEDS: OYSTER SHELL CALCIUM 500 MG TAB PO SCH (07:55)
[2016-12-27] MEDS: VANCOMYCIN ORAL SOL 250MG/5ML ORAL SYRINGE PO SCH ×2 (07:55→13:34)
--- NOTE | 2016-12-27 08:44 | CR.PDOC ---
[facility] Consultation Consultation Date of admission was 12/24/2016 Mrs. Swain is a 81-year-old female who presented to the emergency room on 12/24/2016 with diarrhea or several days prior to presentation. She was recently seen 12/18/2016 at [facility] in [facility] for a left nephrectomy for possible cancer of the left kidney. She is stooling greater than 4-5 times per day and is very loose and foul smelling. The patient has a recurrent history of clostridium difficile infections, this would be her fourth episode. She was feeling extremely weak and fatigued and presented to the emergency room as she was instructed to by her primary care doctor. She was given a bolus of fluid when she arrived due to dehydration. She denies having any recent antibiotic use aside from the antibiotics that were used prior to her recent nephrectomy. She has not had any stool softeners and she was discharged from the hospital. 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 Medications include Crestor 5 mg a day, vitamin D 2000 a day, Advair 250/50 twice a day, omeprazole 20 mg a day, lisinopril 40 mg a day, Os-Anthony 500 mg twice a day, baby aspirin daily, ferrous sulfate 325 mg a day, Lomotil, Synthroid 100 MCG per day. He has no known drug allergies Past medical history significant for abnormal mammogram being followed by Dr. 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 History Social history she denies alcohol, tobacco or drug use. She lives in an apartment complex by herself and has a best friend down the hallway who drives her for her daily activities, she does not drive herself anymore. Family history is noted to be irrelevant Review of systems She has complained of some weight loss, she is sitting up in bed and seems rather comfortable and not in distress HEENT: she describes chronic issues with swallowing food both liquid and solid Cardiopulmonary: she denies shortness of breath but does state that she has a cough that is sometimes productive of clear phlegm She has had 2 bouts of very loose and foul smelling diarrhea today she also complains of generalized muscle weakness Physical exam Vitals Temperature 98.0, pulse 64, respiratory rate 16, blood pressure 152/70, 97% oxygen saturation on room air The patient seems comfortable she is sitting upright in bed however she is coughing and it sounds very productive Heart normal S1 and normal S2, no murmurs, rubs, gallops appreciated Lungs diffuse bilateral rhonchi, no wheezing appreciated or rales. Abdomen soft, nontender, nondistended, NABS 4, well healed and intact surgical scar from recent left nephrectomy with no redness or drainage Extremities no clubbing, cyanosis stenosis or edema appreciated HEENT oropharynx is clear with no lesions appreciated Labs White blood cell count 5.6, hemoglobin 9.4, hematocrit 20.6, platelet count 190 , sodium 144, potassium 4.3, chloride 114, carbon dioxide 24, B UN 39, creatinine 1.62, glucose 85, and 7.[address] revealed collection of tiny air bubbles in the anterior wall of the pelvis on the right, with midline adjacent to this air bubbles and a radiodense fluid collection containing multiple air bubbles. There was also pneumoperitoneum and fluid and air bubbles in the left renal fossa possibly representing hematoma or abscess with a left pleural effusion and infiltrate in the lower lobe of the left lung. Impression and plan: 1. Clostridium difficile infection recurrent, this is the patients fourth episode she most likely relapsed due to her recent nephrectomy with prophylactic antibiotic use. Well begin vancomycin therapy and possibility of stool transplant in the future versus bezlotoxumab, if she does not respond to vancomycin, to prevent recurrence. She has failed for Fidaxomicin therapy in the past. 2. Cough-there is a concern for healthcare acquired pneumonia, her lungs sound very rhonchus on exam, the CT of her abdomen did suggest a possible infiltrate versus possibility of pleural effusion. We will perform sputum cultures and chest x-ray in the morning as she has not had one on this admission. Will obtain records from [facility] for her most recent hospitalization. Vital Signs/I&O Vital Signs Date Time Temp Pulse Resp B/P (MAP) Pulse Ox O2 Delivery O2 Flow Rate FiO2 12/27/16 06:00 98.0 64 16 135/64 (87) 97 Room Air Laboratory Data Labs 24H Laboratory Tests 2 12/27/16 06:13: Nucleated Red Blood Cells % (auto) 0.0, Anion Gap 7L, Glomerular Filtration Rate 38.3L, Blood Urea Nitrogen 32H, Creatinine 1.41H, Sodium Level 143, Potassium Level 4.3, Chloride Level 111H, Carbon Dioxide Level 25, Calcium Level 7.7L CBC/BMP Laboratory Tests 12/26/16 13:15 12/27/16 06:13 Red Blood Count 4.05, Mean Corpuscular Volume 77.5 L, Mean Corpuscular Hemoglobin 25.2 L, Mean Corpuscular Hemoglobin Concent 32.5, Red Cell Distribution Width 18.1 H, Calcium Level 7.7 L Microbiology Microbiology 12/26/16 Stool Occult Blood (ELVA) - Final, Complete 12/25/16 Gastrointestinal Tract Panel (PCR) - Final, Complete Clostridium Difficile A/B Allergies Coded Allergies: No Known Drug Allergy (Verified Allergy, Unknown, 05/24/12) Home Medications Scheduled (Preservision Areds) 1 Cap Cap, 1 CAP PO BID, (Reported) Aspirin (Aspirin EC) 81 Mg Tab, 81 MG PO DAILY, (Reported) Ferrous Sulfate (Ferrous Sulfate) 325 Mg Tab, 325 MG PO DAILY, (Reported) Fluticasone/Vilanterol (Breo Ellipta 200-25 Mcg/INH) 1 Inh Inh, 1 PUFF INH DAILY , (Reported) Lactobacillus Acidophilus (Bacid) 1 Tab Tab, 1 TAB PO BID, (Reported) Levothyroxine Sodium (Levoxyl) 100 Mcg Tab, 100 MCG PO DAILY, (Reported) Lisinopril (Lisinopril) 40 Mg Tab, 40 MG PO DAILY, (Reported) Magnesium Oxide (Magnesium Oxide) 400 Mg Tab, 400 MG PO TID, (Reported) Multivitamins *[facility] STOCKED* (Thera M Plus *[facility] STOCKED*) 1 Tab Tab, 1 TAB PO DAILY, (Reported) Omeprazole (Omeprazole) 20 Mg Cap, 20 MG PO DAILY, (Reported) Oyster Shell Calcium (Calcium) 500 Mg Tab, 500 MG PO BID, (Reported) Rosuvastatin Calcium (Crestor) 40 Mg Tab, 40 MG PO DAILY, (Reported) Scheduled PRN Albuterol Sulfate (Proair Hfa) 108 Mcg/Act Aer, 2 PUFF INH QID PRN for SHORTNESS OF BREATH, (Reported) GME ATTESTATION GME ATTESTATION My preceptor for this patient encounter was physically present in the building during the encounter and was fully available. As needed, all aspects of the patient interview, examination, medical decision making process, and medical care plan development were reviewed and approved by the preceptor. Preceptor is aware and concurs with the plan as stated in the body of this note and will attest to such by his/her cosignature. SHARI STOKES DO Dec 27, 2016 08:44
[2016-12-27] MEDS ORDERED: VANC1SUS PO ×3 (13:14→14:01)
[2016-12-27] MEDS: ASPIRIN 81 MG ENTERIC TAB PO SCH (14:02)
--- NOTE | 2016-12-28 01:58 | IPN ---
DATE OF SERVICE: 12/27/2016 Mrs. Swain is begging to go home today. She has only had two bowel movements. She denies any abdominal pain, nausea or vomiting. She states her cough is chronic and unchanged. Maximum temperature (T-max) was 99.3 yesterday. Today was 98, pulse 64, respirations 16, blood pressure 135/64, oxygen saturation 97% on room air. Heart normal S1, S2, regular rate. Lungs are diminished at the bases with expiratory rhonchi bilaterally, but better air movement than yesterday. Abdomen is soft, nontender with a surgical scar from nephrectomy done in [place] a couple weeks ago. Extremities no edema. No calf swelling. Alert and oriented times three. LABORATORY DATA: White count is 6.4, hemoglobin 10.2, hematocrit 31.4, platelets 233. Sodium 143, potassium 4.3, chloride 111, bicarbonate 25, BUN 32, creatinine 1.4, which is down from 2.2 three days ago. Stool for C. difficile was positive on 12/25. Currently, she is on vancomycin 250 mg by mouth four times a day, day #1. IMPRESSION: Recurrent Clostridium (C) difficile colitis. This is the fourth episode of C. difficile in the past 5 months. The patient was recently admitted to [facility] and had a nephrectomy and probably had perioperative prophylaxis which caused a recurrence of her C. difficile. The patient is adamant to go home and feels well and therefore, will be treated with a vancomycin taper and will try to obtain intravenous (IV) Zinplava (bezlotoxumab), a monoclonal antibody to decrease the risk of recurrent C. difficile. This will be obtained from our pharmacy and scheduled for an outpatient infusion sometime next week. The patient should go home on a vancomycin taper 250 mg four times a day for 1 week, 125 mg four times a day for 1 week, twice a day for 1 week, daily for 1 week, every other day for 1 week and then every third day. I will see the patient in followup in a couple weeks.
--- NOTE | 2016-12-28 16:44 | DSES ---
DATE OF ADMISSION: 12/24/2016 DATE OF DISCHARGE: 12/27/2016 INFECTIOUS DISEASE: Dr. Yun UROLOGIST: Dr. Frazier at [facility] PRIMARY CARE PROVIDER: Dr. Serrano FINAL DIAGNOSES: 1. Clostridium difficile colitis with diarrhea. 2. Acute on chronic renal insufficiency. 3. Recent nephrectomy. 4. Left-sided acute blood loss anemia secondary to nephrectomy. 5. Asthma. 6. History of large left-sided kidney mass. 7. Hypertension. 8. Paroxysmal atrial fibrillation. 9. Dyslipidemia. 10. Gastroesophageal reflux disease. 11. Hypothyroidism. HISTORY OF PRESENT ILLNESS: This is a 81-year-old female patient with underlying medical history of recent nephrectomy for possible renal cancer, recurrent Clostridium (C) difficile infection, hypothyroidism, hypothyroidism, history of paroxysmal atrial fibrillation, asthma, presented to the emergency room with diarrhea. Patient recently had nephrectomy for possible cancer of left kidney. It was performed December 18 at [facility]. Patient was discharged Friday prior to admission. Received rectal suppository prior to discharge. Presented to [facility] with multiple bowel movements very frequently that were watery, nonbloody. Was given antidiarrheal medication. Taken antidiarrheal medication prior to presentation. Was found to have acute on chronic renal insufficiency in the emergency room. Intravenous (IV) hydration was given. Request was made for patient to be admitted. Denies any chest pain, pressure, or discomfort. Denies any lightheadedness. Was found to be acutely anemic as well in the emergency department (ED). HOSPITAL COURSE: Patient was admitted to the hospital. Gastrointestinal (GI) panel was sent. Anemia workup was done. Patient was transfused a total of 2 units packed red blood cells (PRBC). CT of the abdomen was done, showing fluid collection, possible hematoma, and free air. GI panel showed C. difficile. Fecal occult was negative. Case discussed with Dr. Frazier at urology at [facility]. CT finding as per Dr. Frazier's normal finding. Patient's hemoglobin and hematocrit responded appropriately to transfusion. IV fluids were given. Kidney function improved as well. Infectious disease was consulted. As per infectious disease, given patient recently had surgery, will elect to give the patient long vancomycin taper with outpatient followup prior to considering stool transplant. Also given the elevated creatinine, will elect not to pursue a bowel prep with stool transplant, given that it could potentially worsen patient's kidney function. Patient currently feels comfortable, responding to vancomycin, ready for discharge for further care as outpatient. Hemoglobin and hematocrit stable, tolerating oral. VITAL SIGNS: Temperature 98, pulse 64, respirations 16, blood pressure 135/64, pulse oximetry 97% on room air. GENERAL: Patient alert, comfortable in no acute distress. HEENT: Normocephalic, atraumatic. PULMONARY: Bilaterally clear. CARDIAC: Regular, S1, S2. ABDOMEN: Soft. Surgical scar in place with dried blood. Positive bowel sounds. Hematoma and bruise noted. EXTREMITIES: No edema, bilateral lower extremities. LABORATORY DATA: WBC 6.4, hemoglobin and hematocrit 10.2/31.4, platelets 233. Chemistry: Sodium 143, potassium 4.3, chloride 111, bicarbonate 25, BUN 32, creatinine 1.41. DISCHARGE MEDICATIONS: - vancomycin taper 250 mg by mouth four times a day for 7 days, 250 mg by mouth twice a day for 7 days, 250 mg by mouth daily for 7 days, 125 mg by mouth daily for 7 days, 125 mg by mouth every 48 hours for 7 days, and 125 mg by mouth every 3 days for 14 days - patient's home medication of ProAir inhalation as needed - aspirin 81 mg by mouth daily - ferrous sulfate 325 mg by mouth daily - Breo inhalation daily - Bacid one tablet by mouth twice a day - levothyroxine 100 mcg by mouth daily - lisinopril 40 mg by mouth daily - magnesium oxide 400 mg by mouth three times a day - multivitamin one tablet by mouth daily - oyster shell 500 mg by mouth twice a day - PreserVision one capsule by mouth twice a day - Crestor 50 mg by mouth daily will continue Prilosec was discontinued. Patient instructed to followup with primary care provider in 7 days. Consider nephrology followup referral as outpatient. Followup with urology in 7 days and followup with infectious disease physician in 2-3 weeks. Return to the hospital if symptoms worsen. Oral hydration.
== END 2016-12-27 14:20 | disposition home or self-care (01) | DRG 372 ==
LOC: M ED 14:27 → M ED INP 20:50 → M MSPAV 12-25 00:05
PROVIDERS: ATTEND Hospitalist
PROC: 30233N1 Transfusion of Nonautologous Red Blood Cells into Peripheral Vein, Percutaneous Approach (ICD-10-PCS; principal; 2016-12-25)
DX: A04.71 Enterocolitis due to Clostridium difficile, recurrent (principal); D62 Acute posthemorrhagic anemia; E89.0 Postprocedural hypothyroidism; J45.909 Unspecified asthma, uncomplicated; D56.3 Thalassemia minor; I48.0 Paroxysmal atrial fibrillation; I10 Essential (primary) hypertension; E78.5 Hyperlipidemia, unspecified; K21.9 Gastro-esophageal reflux disease without esophagitis; Z98.41 Cataract extraction status, right eye; Z98.42 Cataract extraction status, left eye; Z79.82 Long term (current) use of aspirin; Z79.899 Other long term (current) drug therapy; Z90.5 Acquired absence of kidney

== ENCOUNTER → 2017-01-17 | Outpatient (REF) | payer MEDICARE, MEDICAID ==
[~2017-01-17] MED LIST changes: +ASPI81TA24 PO; +BREO1INH3 INH; +CRES40TA PO; +LEVO100T54 PO; +VANC1SUS PO
[2017-01-17 18:30] LABS: PERCENT SATURATION 55.9 % (13.2-45.0)
[2017-01-17 18:33] LABS: FOLATE 15.5 NG/ML
== END ==
LOC: M LAB REF 17:23
PROVIDERS: ATTEND Internal Medicine Nephrology
DX: D50.9 Iron deficiency anemia, unspecified (principal)

== ENCOUNTER → 2017-02-03 | Outpatient (CLI) | payer MEDICARE, MEDICAID ==
[2017-02-03 13:31] LABS: FREE T4 1.19 NG/DL (0.76-1.46)
== END ==
LOC: M LAB 11:54
PROVIDERS: ATTEND Nurse Practitioner Family
DX: E89.0 Postprocedural hypothyroidism (principal)

== ENCOUNTER → 2017-02-18 | Outpatient (CLI) | payer MEDICARE, MEDICAID | LOC: M RAD 11:35 | DX: J44.9 Chronic obstructive pulmonary disease, unspecified (principal) | CPT/HCPCS: 71046 ==

== ENCOUNTER → 2017-04-17 | Outpatient (REF) | payer MEDICARE, MEDICAID ==
[2017-04-19 08:09] LABS: ERYTHROPOIETIN 18.8 mIU/mL (2.6-18.5)
== END ==
LOC: M LAB REF 13:30
DX: N18.9 Chronic kidney disease, unspecified (principal); D63.1 Anemia in chronic kidney disease; Z79.899 Other long term (current) drug therapy
CPT/HCPCS: 82668

== ENCOUNTER → 2017-04-17 | Outpatient (REF) | payer MEDICARE, MEDICAID | LOC: M LAB REF 13:30 | DX: N39.0 Urinary tract infection, site not specified (principal) | CPT/HCPCS: 87186 ==

== ENCOUNTER → 2017-04-21 | Outpatient (CLI) | payer MEDICARE, MEDICAID ==
[2017-04-21 12:34] LABS: FREE T4 1.52 NG/DL (0.76-1.46); THYROID STIMULATING HORMONE 0.342 uIU/ML (0.358-3.740)
== END ==
LOC: M LAB 11:48
DX: E89.0 Postprocedural hypothyroidism (principal)
CPT/HCPCS: 84443

== ENCOUNTER → 2017-04-24 | Outpatient (REF) | payer MEDICARE, MEDICAID | LOC: M LAB REF 17:08 | DX: A04.72 Enterocolitis due to Clostridium difficile, not specified as recurrent (principal); Z87.19 Personal history of other diseases of the digestive system | CPT/HCPCS: 82270 ==

== ENCOUNTER → 2017-04-25 | Outpatient (REF) | payer MEDICARE, MEDICAID | LOC: M SFHCPLAZ 15:30 | DX: A04.72 Enterocolitis due to Clostridium difficile, not specified as recurrent (principal) | CPT/HCPCS: 87493 ==

== ENCOUNTER → 2017-05-06 | Outpatient (REF) | payer MEDICARE, MEDICAID | LOC: M LAB REF 15:44 | DX: N60.92 Unspecified benign mammary dysplasia of left breast (principal); D24.2 Benign neoplasm of left breast | CPT/HCPCS: 88305 ==

== ENCOUNTER → 2017-07-10 | Outpatient (CLI) | payer MEDICARE, MEDICAID ==
[2017-07-10 14:09] LABS: FREE T4 0.33 NG/DL (0.76-1.46)
[2017-07-11 09:28] LABS: THYROGLOBULIN ANTIBODY 19.3 U/ML (<60.0)
== END ==
LOC: M LAB 11:57
DX: E89.0 Postprocedural hypothyroidism (principal); R80.9 Proteinuria, unspecified; Z85.850 Personal history of malignant neoplasm of thyroid
CPT/HCPCS: 84165

== ENCOUNTER → 2017-07-10 | Outpatient (REF) | payer MEDICARE, MEDICAID ==
[2017-07-10 19:04] LABS: TOTAL PROTEIN,RANDOM URINE 27.4 MG/DL (0.0-12.0); URINE TOTAL PROTEIN 27.4 MG/DL (0-12)
[2017-07-10 19:07] LABS: TOTAL PROTEIN 7.5 GM/DL (6.4-8.2)
[2017-07-13 15:08] LABS: KAPPA/LAMBDA RATIO URINE 12.93 (2.04-10.37)
[2017-07-14 12:00] LABS: ALBUMIN 4.76 GM/DL (3.29-5.55); ALBUMIN % 63.5 % (55.8-66.1); ALPHA-1-GLOBULIN % 3.6 % (2.9-4.9); ALPHA-1-GLOBULINS 0.27 GM/DL (0.17-0.41); ALPHA-2-GLOBULINS 0.72 GM/DL (0.42-0.99); ALPHA-2-GLOBULINS % 9.6 % (7.1-11.8); BETA-1-GLOBULINS % 5.3 % (4.7-7.2); BETA-2-GLOBULINS 0.39 GM/DL (0.19-0.55); BETA-2-GLOBULINS % 5.2 % (3.2-6.5); GAMMA GLOBULIN % 12.8 % (11.1-18.8); GAMMA GLOBULINS 0.96 GM/DL (0.65-1.58)
== END ==
LOC: M LAB REF 16:56
DX: R80.9 Proteinuria, unspecified (principal)

== ENCOUNTER → 2017-07-21 | Outpatient (CLI) | payer MEDICARE, MEDICAID ==
[2017-07-21 13:34] LABS: THYROGLOBULIN ANTIBODY 20.5 U/ML (<60.0)
[2017-07-21 14:01] LABS: FREE T4 0.23 NG/DL (0.76-1.46)
[2017-07-31 09:31] LABS: THYROGLOBULIN ANTIBODY <1.81; THYROGLOBULIN INTERPRETATION SEE SEPARATE REPORT; THYROGLOBULIN TUMOR MARKER 0.7
== END ==
LOC: M LAB 11:54
DX: E89.0 Postprocedural hypothyroidism (principal)
CPT/HCPCS: 84443

== ENCOUNTER → 2017-09-22 | Outpatient (CLI) | payer MEDICARE, MEDICAID ==
[2017-09-22 12:20] LABS: ANION GAP 6 MEQ/L (8-16); BLOOD UREA NITROGEN 35 MG/DL (7-18); CALCIUM LEVEL 8.4 MG/DL (8.8-10.2); CARBON DIOXIDE LEVEL 28 MEQ/L (21-32); CHLORIDE LEVEL 113 MEQ/L (98-107); CREATININE FOR GFR 1.44 MG/DL (0.55-1.30); GLOMERULAR FILTRATION RATE 37.3 (>32); GLUCOSE, FASTING 91 MG/DL (70-100); POTASSIUM SERUM 4.5 MEQ/L (3.5-5.1); SODIUM LEVEL 147 MEQ/L (136-145); URIC ACID 5.5 MG/DL (2.6-6.0)
== END ==
LOC: M RAD 11:39
DX: C64.2 Malignant neoplasm of left kidney, except renal pelvis (principal); R59.0 Localized enlarged lymph nodes; K80.20 Calculus of gallbladder without cholecystitis without obstruction; K57.30 Diverticulosis of large intestine without perforation or abscess without bleeding; E89.0 Postprocedural hypothyroidism; Z90.5 Acquired absence of kidney
CPT/HCPCS: 71250

== ENCOUNTER → 2017-09-22 | Outpatient (CLI) | payer MEDICARE, MEDICAID ==
[2017-09-22 12:25] LABS: FREE T4 1.24 NG/DL (0.76-1.46)
== END ==
LOC: M LAB 11:05
DX: E89.0 Postprocedural hypothyroidism (principal)
CPT/HCPCS: 84443

== ENCOUNTER → 2017-11-03 | Outpatient (REF) | payer MEDICARE, MEDICAID ==
[2017-11-03 18:40] LABS: TOTAL PROTEIN,RANDOM URINE 30.1 MG/DL (0.0-12.0); URINE TOTAL PROTEIN 30.1 MG/DL (0-12)
[2017-11-03 19:18] LABS: TOTAL PROTEIN 7.3 GM/DL (6.4-8.2)
[2017-11-03 19:24] LABS: REASON FOR REVIEW RBC MORPHOLOGY; SLIDE REVIEW Report; SOURCE PERIPHERAL SMEAR
[2017-11-06 00:06] LABS: FREE KAPPA LIGHT CHAINS SERUM 30.9 mg/L (3.3-19.4); FREE LAMBDA LIGHT CHAINS SERUM 25.5 mg/L (5.7-26.3); KAPPA/LAMBDA RATIO SERUM 1.21 (0.26-1.65)
[2017-11-06 11:25] LABS: ALBUMIN 4.53 GM/DL (3.29-5.55); ALBUMIN % 62.1 % (55.8-66.1); ALPHA-1-GLOBULIN % 4.3 % (2.9-4.9); ALPHA-1-GLOBULINS 0.31 GM/DL (0.17-0.41); ALPHA-2-GLOBULINS 0.75 GM/DL (0.42-0.99); ALPHA-2-GLOBULINS % 10.3 % (7.1-11.8); BETA-1-GLOBULINS 0.38 GM/DL (0.28-0.60); BETA-1-GLOBULINS % 5.2 % (4.7-7.2); BETA-2-GLOBULINS 0.41 GM/DL (0.19-0.55); BETA-2-GLOBULINS % 5.6 % (3.2-6.5); GAMMA GLOBULIN % 12.5 % (11.1-18.8); GAMMA GLOBULINS 0.91 GM/DL (0.65-1.58)
== END ==
LOC: M LAB REF 16:56
DX: R80.9 Proteinuria, unspecified (principal); D50.9 Iron deficiency anemia, unspecified
CPT/HCPCS: 84165

== ENCOUNTER → 2017-11-24 | Outpatient (CLI) | payer MEDICARE, MEDICAID ==
[2017-11-24 13:05] LABS: FREE T4 1.54 NG/DL (0.76-1.46)
== END ==
LOC: M LAB 11:35
DX: E89.0 Postprocedural hypothyroidism (principal)
CPT/HCPCS: 84443

== ENCOUNTER → 2018-01-16 | Outpatient (REF) | payer MEDICARE, MEDICAID ==
[2018-01-16 14:03] LABS: FERRITIN 1251 NG/ML (8-252); IRON (FE) 88 UG/DL (50-170); PERCENT SATURATION 36.1 % (13.2-45.0); TOTAL IRON BINDING CAPACITY 244 UG/DL (250-450)
== END ==
LOC: M LAB REF 13:02
DX: D64.9 Anemia, unspecified (principal)
CPT/HCPCS: 83550

== ENCOUNTER → 2018-03-23 | Outpatient (CLI) | payer MEDICARE, MEDICAID ==
[~2018-03-23] MED LIST changes: +AMLO2.5T3 PO; -FIRS1SOL3 PO; +FIRS50SO PO; +LEVO125T41 PO; +LISI40TA PO; -LISI40TAB PO; +RISATAB3 PO; -ROSU40TA PO; +ROSU40TA3 PO; +VITA1CAP25 PO
[2018-03-23 14:18] LABS: FREE T4 1.47 NG/DL (0.76-1.46); THYROID STIMULATING HORMONE 0.144 uIU/ML (0.358-3.740)
== END ==
LOC: M LAB 11:58
PROVIDERS: ATTEND Nurse Practitioner Family
DX: E89.0 Postprocedural hypothyroidism (principal)

== ENCOUNTER → 2018-05-11 | Outpatient (CLI) | payer MEDICARE, MEDICAID ==
[~2018-05-11] MED LIST changes: -ASPI1TAB PO; +ASPI81TA26 PO; +BACI1CAP PO; +CALC12504 PO; -CALC500T36 PO; +CALC600T3 PO; -D 101TAB PO; -VANC250C2 PO; +VANC250C3 PO; +VITA-144 PO
[2018-05-11 13:47] LABS: BASO % 0.2 % (0.0-1.0); EOS # 0.1 10^3/uL (0.0-0.50); EOS % 1.3 % (0.0-3.0); HEMATOCRIT 29.7 % (36.0-47.0); LYMPH # 1.9 10^3/uL (1.5-4.5); LYMPH % 31.7 % (24.0-44.0); MEAN CORPUSCULAR HGB CONC 30.3 g/dl (32.0-36.5); MEAN CORPUSCULAR VOLUME 72.4 fl (80.0-96.0); MONO # 0.6 10^3/uL (0.0-0.8); MONO % 9.9 % (0.0-5.0); NEUTROPHILS # 3.4 10^3/uL (1.8-7.7); NEUTROPHILS % 56.7 % (36.0-66.0); PLATELET COUNT, AUTOMATED 240 10^3/uL (150-450)
[2018-05-11 14:03] LABS: TOTAL PROTEIN,RANDOM URINE 22.2 MG/DL (0.0-12.0); URINE TOTAL PROTEIN 22.2 MG/DL (0-12)
[2018-05-11 14:17] LABS: ALBUMIN 4.3 GM/DL (3.2-5.2); ALT/SGPT 18 U/L (12-78); BILIRUBIN,TOTAL 0.6 MG/DL (0.2-1.0); BLOOD UREA NITROGEN 37 MG/DL (7-18); CALCIUM LEVEL 8.8 MG/DL (8.8-10.2); CARBON DIOXIDE LEVEL 24 MEQ/L (21-32); CHLORIDE LEVEL 110 MEQ/L (98-107); GLOMERULAR FILTRATION RATE 35.5 (>32); GLUCOSE, FASTING 70 MG/DL (70-100); POTASSIUM SERUM 4.7 MEQ/L (3.5-5.1); SODIUM LEVEL 142 MEQ/L (136-145); TOTAL PROTEIN 7.2 GM/DL (6.4-8.2)
[2018-05-13 00:08] LABS: FREE LAMBDA LIGHT CHAINS SERUM 25.1 mg/L (5.7-26.3); KAPPA/LAMBDA RATIO SERUM 1.35 (0.26-1.65)
[2018-05-13 10:16] LABS: ALBUMIN 4.46 GM/DL (3.29-5.55); ALPHA-1-GLOBULIN % 4.3 % (2.9-4.9); ALPHA-1-GLOBULINS 0.31 GM/DL (0.17-0.41); ALPHA-2-GLOBULINS 0.78 GM/DL (0.42-0.99); ALPHA-2-GLOBULINS % 10.8 % (7.1-11.8); BETA-1-GLOBULINS 0.38 GM/DL (0.28-0.60); BETA-1-GLOBULINS % 5.3 % (4.7-7.2); BETA-2-GLOBULINS % 5.6 % (3.2-6.5); GAMMA GLOBULINS 0.86 GM/DL (0.65-1.58)
[2018-05-14 13:41] LABS: URINE VOLUME 750 ML
[2018-05-14 13:42] LABS: UPEP INTERPRETATION NO M-SPIKE NOTED
== END ==
LOC: M LAB 12:13
PROVIDERS: ATTEND Internal Medicine Hematology & Oncology
DX: C64.2 Malignant neoplasm of left kidney, except renal pelvis (principal); N18.9 Chronic kidney disease, unspecified; Z85.850 Personal history of malignant neoplasm of thyroid; D63.1 Anemia in chronic kidney disease; Z90.5 Acquired absence of kidney; E89.0 Postprocedural hypothyroidism

== ENCOUNTER → 2018-06-17 | Outpatient (CLI) | payer MEDICARE, OTHER, MEDICAID ==
[2018-06-17 13:24] LABS: FREE T4 1.75 NG/DL (0.76-1.46); THYROID STIMULATING HORMONE 0.034 uIU/ML (0.358-3.740)
[2018-06-17 13:26] LABS: THYROGLOBULIN ANTIBODY 16.3 U/ML (<60.0)
[2018-06-18 10:13] LABS: THRYOGLOBULIN ANTIBODIES (ATA) < 1.0 IU/mL (0.0-0.9); THYROGLOBULIN QUANTITATIVE < 0.1 ng/mL (1.5-38.5)
== END ==
LOC: M LAB 12:01
PROVIDERS: ATTEND Nurse Practitioner Family
DX: E89.0 Postprocedural hypothyroidism (principal); Z85.850 Personal history of malignant neoplasm of thyroid

== ENCOUNTER → 2018-06-22 | Outpatient (REF) | payer OTHER | LOC: M LAB REF 13:30 | PROVIDERS: ATTEND Internal Medicine Nephrology | DX: N18.9 Chronic kidney disease, unspecified (principal); D63.1 Anemia in chronic kidney disease ==

== ENCOUNTER → 2018-09-21 | Outpatient (CLI) | payer MEDICARE, OTHER ==
[~2018-09-21] MED LIST changes: -CALC12504 PO; +CALC500T61 PO; -OMEP20CA3 PO; +OMEP20CA4 PO; -ROSU40TA3 PO; +ROSU40TA4 PO
[2018-09-21 12:49] LABS: FREE T4 1.13 NG/DL (0.76-1.46); THYROID STIMULATING HORMONE 0.789 uIU/ML (0.358-3.740)
== END ==
LOC: M LAB 11:36
PROVIDERS: ATTEND Nurse Practitioner Family
DX: E89.0 Postprocedural hypothyroidism (principal)

== ENCOUNTER → 2018-09-25 | Outpatient (REF) | payer MEDICARE ==
[2018-09-29 13:27] LABS: PERCENT SATURATION 34.5 % (13.2-45.0)
== END ==
LOC: M LAB REF 12:49
PROVIDERS: ATTEND Nurse Practitioner Family
DX: N18.9 Chronic kidney disease, unspecified (principal); D63.1 Anemia in chronic kidney disease

== ENCOUNTER → 2018-09-30 | Outpatient (CLI) | payer MEDICARE, MEDICAID ==
--- NOTE | 2018-09-30 20:13 | REP ---
CT abdomen and pelvis without IV or oral contrast: History: Kidney cancer. She also gives a history of breast carcinoma. There is a history of left nephrectomy. Comparison CT study September 22, 2017. CT findings: Preliminary digital title closer radiograph demonstrates a normal bowel gas pattern. There are healing right lower anterior rib fractures noted incidentally. The lung bases show mild linear fibrosis but are otherwise clear. No focal hepatic lesion is seen. There is a fairly densely calcified gallstone in the fundus the gallbladder unchanged. No pancreatic abnormality is observed. No adrenal lesion is seen. There is no evidence of recurrent mass in the left nephrectomy bed. The spleen is unremarkable. No retroperitoneal adenopathy is seen. No right renal mass or hydronephrosis is noted. No calculus is seen. Normal caliber aorta is seen with atherosclerotic calcification. There is left colonic diverticulosis without CT evidence of diverticulitis. No pelvic mass or adenopathy is observed. Bone window settings show degenerative changes in the lumbosacral spine. Impression: 1. Status post left nephrectomy. 2. No evidence of recurrent mass or adenopathy in the abdomen or pelvis. 3. Cholelithiasis. 4. Healing right-sided rib fractures. 5. Left colonic diverticulosis. Electronically Signed by Saul Pradhan MD 09/30/2018 09:17 P
== END ==
LOC: M RAD 13:21
PROVIDERS: ATTEND Urology
DX: Z85.528 Personal history of other malignant neoplasm of kidney (principal); Z85.3 Personal history of malignant neoplasm of breast; Z90.5 Acquired absence of kidney; K80.80 Other cholelithiasis without obstruction; K57.30 Diverticulosis of large intestine without perforation or abscess without bleeding; Z08 Encounter for follow-up examination after completed treatment for malignant neoplasm

== ENCOUNTER → 2018-11-27 | Outpatient (CLI) | payer MEDICARE, MEDICAID ==
[~2018-11-27] MED LIST changes: +ATIV1TAB7 PO; +CHOL100029 PO; -OMEP40CA2 PO; +OMEP40CA97 PO; -VITAD1000T PO
--- NOTE | 2018-11-27 10:05 | REP ---
CT chest without contrast: History: Chronic kidney disease stage III, cough. Right supraclavicular lymph node enlargement. The patient gives history of prior renal and breast carcinoma. Comparison chest CT study September 22, 2017. Comparison chest CT study September 24, 2016 is also reviewed. Findings: There is no evidence of supraclavicular adenopathy or neck adenopathy on either side. No axillary adenopathy is seen. No hilar or mediastinal mass or adenopathy is observed. There is vascular calcification including left coronary artery and right coronary artery vascular calcification unchanged. No adrenal lesion is seen. Visualized upper abdominal structures are unremarkable and unchanged. The patient is status post left nephrectomy. No pleural or pericardial effusion is seen. In the lung bains, there is volume loss in the left lower lobe. There are inspissated endobronchial secretions in the left lower lobe bronchial tree fairly extensively. There is narrowing and loss of air column integrity in the left lower lobe bronchus takeoff from the left mainstem bronchus. No definite endobronchial mass lesion is seen. There is a diffuse pattern of calcification in the bronchial cartilage. There is minimal discoid atelectatic change in the lingular segment of the left upper lobe as well. No mass or infiltrate is seen. Thoracic kyphosis is somewhat exaggerated. No bony destructive lesion is seen. Exam is otherwise unremarkable. Impression: Impacted endobronchial mucoid secretions in the left lower lobe bronchial tree from the left lower lobe bronchus takeoff distally. There is some volume loss in the left lower lobe. No definite endobronchial mass lesion is seen but a subtle bronchial stenosis or endobronchial lesion at the takeoff of the left lower lobe bronchus cannot be excluded. There is no evidence of adenopathy. No lung mass lesion is seen. Otherwise no active disease. Status post left nephrectomy. Electronically Signed by Saul Pradhan MD 11/27/2018 11:25 A
== END ==
LOC: M RAD 08:39
PROVIDERS: ATTEND Nurse Practitioner Family
DX: N18.3 Chronic kidney disease, stage 3 (moderate) (principal); R91.8 Other nonspecific abnormal finding of lung field; Z90.5 Acquired absence of kidney

== ENCOUNTER → 2019-02-24 | Outpatient (REF) | payer MEDICARE, MEDICAID ==
[~2019-02-24] MED LIST changes: +OMEP-172 PO; -OMEP20CA4 PO
[2019-02-24 18:08] LABS: ALBUMIN 4.2 GM/DL (3.2-5.2); CALCIUM LEVEL 8.7 MG/DL (8.8-10.2); CREATININE FOR GFR 1.43 MG/DL (0.55-1.30); GLOMERULAR FILTRATION RATE 37.5 (>32); PHOSPHORUS LEVEL 3.7 MG/DL (2.5-4.9); POTASSIUM SERUM 4.5 MEQ/L (3.5-5.1)
== END ==
LOC: M LAB REF 17:24
PROVIDERS: ATTEND Nurse Practitioner Family
DX: N18.3 Chronic kidney disease, stage 3 (moderate) (principal)

== ENCOUNTER → 2019-03-22 | Outpatient (CLI) | payer MEDICARE, MEDICAID ==
[~2019-03-22] MED LIST changes: -OMEP-172 PO; +OMEP1CAP73 PO
[2019-03-22 13:30] LABS: FREE T4 1.38 NG/DL (0.76-1.46); THYROID STIMULATING HORMONE 1.81 uIU/ML (0.358-3.740)
== END ==
LOC: M LAB 11:50
PROVIDERS: ATTEND Internal Medicine Endocrinology, Diabetes & Metabolism
DX: E89.0 Postprocedural hypothyroidism (principal)

== ENCOUNTER → 2019-03-30 | Outpatient (REF) | payer MEDICARE, MEDICAID ==
[2019-03-30 18:44] LABS: PERCENT SATURATION 24.2 % (13.2-45.0)
== END ==
LOC: M LAB REF 17:16
PROVIDERS: ATTEND Nurse Practitioner Family
DX: D50.9 Iron deficiency anemia, unspecified (principal)

== ENCOUNTER → 2019-06-18 | Outpatient (CLI) | payer MEDICARE, MEDICAID ==
[~2019-06-18] MED LIST changes: +SYNT100T PO
[2019-06-18 13:46] LABS: FREE T4 1.33 NG/DL (0.76-1.46); THYROID STIMULATING HORMONE 0.966 uIU/ML (0.358-3.740)
[2019-06-19 08:11] LABS: THRYOGLOBULIN ANTIBODIES (ATA) < 1.0 IU/mL (0.0-0.9); THYROGLOBULIN QUANTITATIVE < 0.1 ng/mL (1.5-38.5)
== END ==
LOC: M LAB 11:41
PROVIDERS: ATTEND Nurse Practitioner Family
DX: E89.0 Postprocedural hypothyroidism (principal); Z85.850 Personal history of malignant neoplasm of thyroid

== ENCOUNTER → 2019-08-19 | Outpatient (REF) | payer MEDICARE, MEDICAID | LOC: M LAB REF 16:41 | PROVIDERS: ATTEND Internal Medicine Nephrology | DX: N18.9 Chronic kidney disease, unspecified (principal); D63.1 Anemia in chronic kidney disease ==

== ENCOUNTER → 2019-10-01 | Outpatient (CLI) | payer MEDICARE, MEDICAID ==
[~2019-10-01] MED LIST changes: -CALC600T3 PO; +CALC600T86 PO
--- NOTE | 2019-11-12 15:12 | REP ---
CT ABDOMEN AND PELVIS WITHOUT IV OR ORAL CONTRAST HISTORY: Malignant neoplasm left kidney. There is apparently also a history of breast carcinoma and chronic kidney disease. Patient reports prior left nephrectomy. COMPARISON: CT study 09/30/2018 and 09/22/2017. CT FINDINGS: Digital preliminary bologna maker radiograph is non-contributory. Normal bowel gas pattern. There are bibasilar fibrotic changes visible on lung window settings. No pulmonary nodule or effusion is seen. Cardiomegaly is observed. No focal hepatic or splenic lesion is seen. Neither organ is enlarged. An opaque, 12-mm gallstone is visible in the lumen of the gallbladder. No abnormality is noted in the pancreas. The pancreatic tail extends into the left nephrectomy bed along with the spleen adjacent to some postoperative sutures as before. There is no evidence of recurrent mass or adenopathy in the retroperitoneum. The right kidney remains morphologically intact without evidence of hydronephrosis, calculus, or mass. Vascular calcification is noted. Normal caliber aorta. Small and large bowel loops are unremarkable. No uterine or ovarian abnormality is seen. Urinary bladder is intact. No abdominal wall defect is observed. IMPRESSION: No evidence of recurrent mass or adenopathy. Post left nephrectomy. Cholelithiasis. Mild left colonic diverticulosis is again seen. MTDD
== END ==
LOC: M RAD 13:00
PROVIDERS: ATTEND Urology
DX: Z90.5 Acquired absence of kidney (principal); K80.20 Calculus of gallbladder without cholecystitis without obstruction; Z85.528 Personal history of other malignant neoplasm of kidney

== ENCOUNTER → 2020-07-21 | Outpatient (CLI) | payer MEDICARE, MEDICAID ==
[~2020-07-21] MED LIST changes: +LISI10TA22 PO; -LISI10TA4 PO; -LISI40TA PO; +LISI40TA4 PO; -MAG400TA PO; +MAGN400T35 PO
--- NOTE | 2020-07-21 14:51 | REP ---
INDICATION: PAIN AFTER FALL COMPARISON: None. TECHNIQUE: AP, lateral, bilateral oblique and sunrise views. FINDINGS: Early moderate tricompartmental osteoarthritic degenerative changes include cortical irregularity and early osteophyte formation at the femoral condyles along with increased sclerosis and joint space narrowing along the patellofemoral joint space with marginal osteophytosis. Lateral view cannot exclude joint effusion. No obvious acute fracture or dislocation identified. IMPRESSION: 1. 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 2. No obvious acute fracture or dislocation. Possible fusion. <Electronically signed by Zeb Barrientos > 07/21/20 [id number]
== END ==
LOC: M RAD 13:42
PROVIDERS: ATTEND Internal Medicine
DX: M25.762 Osteophyte, left knee (principal); M85.862 Other specified disorders of bone density and structure, left lower leg

== ENCOUNTER → 2020-07-24 | Outpatient (CLI) | payer MEDICARE, MEDICAID ==
[2020-07-24 13:15] LABS: FREE T4 0.99 NG/DL (0.76-1.46); THYROID STIMULATING HORMONE 12.2 uIU/ML (0.358-3.740)
[2020-07-25 13:08] LABS: THRYOGLOBULIN ANTIBODIES (ATA) < 1.0 IU/mL (0.0-0.9); THYROGLOBULIN QUANTITATIVE 0.2 ng/mL (1.5-38.5)
== END ==
LOC: M LAB 11:51
PROVIDERS: ATTEND Nurse Practitioner Family
DX: E89.0 Postprocedural hypothyroidism (principal); Z85.850 Personal history of malignant neoplasm of thyroid

== ENCOUNTER → 2020-08-01 | Outpatient (REF) | payer MEDICARE, MEDICAID ==
[2020-08-01 17:40] LABS: PERCENT SATURATION 24.2 % (13.2-45.0)
== END ==
LOC: M LAB REF 16:38
PROVIDERS: ATTEND Nurse Practitioner Family
DX: D50.9 Iron deficiency anemia, unspecified (principal)

== ENCOUNTER → 2020-09-18 | Outpatient (CLI) | payer MEDICARE, MEDICAID ==
[~2020-09-18] MED LIST changes: -CEFD1CAP8 PO; +CEFD300C41 PO; +OMEP40CA4 PO; -OMEP40CA97 PO
[2020-09-18 13:42] LABS: FREE T4 0.92 NG/DL (0.76-1.46); THYROID STIMULATING HORMONE 31.2 uIU/ML (0.358-3.740)
== END ==
LOC: M LAB 12:05
PROVIDERS: ATTEND Nurse Practitioner Family
DX: E89.0 Postprocedural hypothyroidism (principal)

== ENCOUNTER → 2020-11-01 | Outpatient (REF) | payer MEDICARE, MEDICAID ==
[~2020-11-01] MED LIST changes: +CEFD1CAP8 PO; -CEFD300C41 PO
== END ==
LOC: M LAB REF 17:30
PROVIDERS: ATTEND Nurse Practitioner Family
DX: E83.42 Hypomagnesemia (principal)

== ENCOUNTER → 2020-11-20 | Outpatient (CLI) | payer MEDICARE, MEDICAID ==
[2020-11-20 13:56] LABS: FREE T4 1.33 NG/DL (0.76-1.46); THYROID STIMULATING HORMONE 0.489 uIU/ML (0.358-3.740)
== END ==
LOC: M LAB 11:53
PROVIDERS: ATTEND Nurse Practitioner Family
DX: E89.0 Postprocedural hypothyroidism (principal)

== ENCOUNTER → 2021-02-05 | Outpatient (REF) | payer MEDICARE, MEDICAID ==
[~2021-02-05] MED LIST changes: -CEFD1CAP8 PO; +CEFD300C41 PO
== END ==
LOC: M LAB REF 14:07
PROVIDERS: ATTEND Nurse Practitioner Family
DX: E83.42 Hypomagnesemia (principal)

== ENCOUNTER → 2021-03-20 | Outpatient (CLI) | payer MEDICARE, MEDICAID ==
[2021-03-20 12:18] LABS: FREE T4 1.79 NG/DL (0.76-1.46); THYROID STIMULATING HORMONE 0.069 uIU/ML (0.358-3.740)
[2021-03-21 10:08] LABS: THRYOGLOBULIN ANTIBODIES (ATA) < 1.0 IU/mL (0.0-0.9); THYROGLOBULIN QUANTITATIVE 0.1 ng/mL (1.5-38.5)
== END ==
LOC: M LAB 11:13
PROVIDERS: ATTEND Internal Medicine
DX: E89.0 Postprocedural hypothyroidism (principal)

== ENCOUNTER → 2021-05-09 | Outpatient (REF) | payer MEDICARE, MEDICAID ==
[2021-05-09 17:29] LABS: PERCENT SATURATION 26.3 % (13.2-45.0)
== END ==
LOC: M LAB REF 16:39
PROVIDERS: ATTEND Nurse Practitioner Family
DX: D50.9 Iron deficiency anemia, unspecified (principal)

== ENCOUNTER 2021-05-13 09:29 | Emergency (ER) | payer MEDICARE, MEDICAID ==
[~2021-05-13] VITALS: Ht 165.1 cm; Wt 57.2 kg
[2021-05-13] MEDS ORDERED: ALBU8.5H (09:41)
[2021-05-13] MEDS ORDERED: BACI1CAP (09:41)
[2021-05-13] MEDS ORDERED: PROC20004 (09:41)
[2021-05-13] MEDS ORDERED: LEVO100T5 (09:41)
[2021-05-13] MEDS ORDERED: AMLO1TAB24 (09:41)
[2021-05-13] MEDS ORDERED: ROSU10TA6 (09:41)
[2021-05-13 10:51] LABS: BASO % 0.3 % (0.0-1.0); EOS # 0.1 10^3/uL (0.0-0.5); HEMATOCRIT 33.9 % (36.0-47.0); HEMOGLOBIN 10.4 g/dl (12.0-15.5); LYMPH # 1.4 10^3/uL (1.5-5.0); LYMPH % 20.7 % (24.0-44.0); MEAN CORPUSCULAR HEMOGLOBIN 21.5 pg (27.0-33.0); MEAN CORPUSCULAR HGB CONC 30.7 g/dl (32.0-36.5); MONO # 0.7 10^3/uL (0.0-0.8); MONO % 10.8 % (2.0-8.0); NEUTROPHILS # 4.5 10^3/uL (1.5-8.5); NEUTROPHILS % 66.3 % (36.0-66.0); PLATELET COUNT, AUTOMATED 258 10^3/uL (150-450); RED BLOOD COUNT 4.84 10^6/uL (4.00-5.40); WHITE BLOOD COUNT 6.9 10^3/uL (4.0-10.0)
[2021-05-13 11:13] LABS: ERYTHROCYTE SEDIMENTATION RATE 27 mm/hr (0-30)
[2021-05-13 11:16] LABS: C REACTIVE PROTEIN QUANTITATIV 0.3 MG/DL (0.00-0.30); CALCIUM LEVEL 9.4 MG/DL (8.8-10.2); CREATININE FOR GFR 1.39 MG/DL (0.55-1.30); GLOMERULAR FILTRATION RATE 38.5 (>32); POTASSIUM SERUM 4.1 MEQ/L (3.5-5.1)
[2021-05-13 11:30] VITALS: BP 158/82
[2021-05-13] MEDS ORDERED: DICL20GE TP (11:30)
== END 2021-05-13 11:35 | disposition home or self-care (01) ==
LOC: M ED 09:29
DX: M17.11 Unilateral primary osteoarthritis, right knee (principal); R60.0 Localized edema; I10 Essential (primary) hypertension; Z85.528 Personal history of other malignant neoplasm of kidney; Z79.899 Other long term (current) drug therapy; Z79.890 Hormone replacement therapy

== ENCOUNTER → 2021-06-20 | Outpatient (CLI) | payer MEDICARE, MEDICAID ==
[~2021-06-20] MED LIST changes: +ALBU8.5H; +AMLO1TAB24; +BACI1CAP; +CRES10TA PO; +DICL20GE TP; +MAGN400C PO; +PROC20004; +ROSU10TA6
[2021-06-20 13:21] LABS: FREE T4 1.5 NG/DL (0.76-1.46); THYROID STIMULATING HORMONE 0.051 uIU/ML (0.358-3.740)
== END ==
LOC: M LAB 11:16
PROVIDERS: ATTEND Nurse Practitioner Family
DX: E89.0 Postprocedural hypothyroidism (principal)

== ENCOUNTER → 2021-08-29 | Outpatient (REF) | payer MEDICARE, MEDICAID ==
[2021-08-29 19:27] LABS: ALBUMIN 4.2 GM/DL (3.2-5.2); CALCIUM LEVEL 9.4 MG/DL (8.8-10.2); CREATININE FOR GFR 1.6 MG/DL (0.55-1.30); GLOMERULAR FILTRATION RATE 32.7 (>32); MAGNESIUM LEVEL 2.4 MG/DL (1.8-2.4); PHOSPHORUS LEVEL 3.6 MG/DL (2.5-4.9); POTASSIUM SERUM 4.3 MEQ/L (3.5-5.1)
== END ==
LOC: M LAB REF 16:53
PROVIDERS: ATTEND Nurse Practitioner Family
DX: N18.32 Chronic kidney disease, stage 3b (principal); E83.42 Hypomagnesemia

== ENCOUNTER → 2021-08-30 | Outpatient (CLI) | payer MEDICARE, MEDICAID | LOC: M PLAIMG 13:24 | PROVIDERS: ATTEND Urology | DX: C64.2 Malignant neoplasm of left kidney, except renal pelvis (principal); K80.20 Calculus of gallbladder without cholecystitis without obstruction; E27.9 Disorder of adrenal gland, unspecified ==

== ENCOUNTER → 2021-10-17 | Outpatient (CLI) | payer MEDICARE, MEDICAID | LOC: M PLAIMG 14:55 | PROVIDERS: ATTEND Nurse Practitioner Family | DX: R05.9 Cough, unspecified (principal); R06.00 Dyspnea, unspecified ==

== ENCOUNTER → 2022-03-08 | Outpatient (REF) | payer MEDICARE, MEDICAID ==
[2022-03-08 18:25] LABS: FREE T4 1.29 NG/DL (0.89-1.76); THYROID STIMULATING HORMONE 1.469 uIU/ML (0.55-4.78)
[2022-03-08 18:27] LABS: THYROGLOBULIN ANTIBODY < 15.0 U/ML (<60.0)
== END ==
LOC: M LAB REF 17:00
PROVIDERS: ATTEND Internal Medicine
DX: E89.0 Postprocedural hypothyroidism (principal); Z85.850 Personal history of malignant neoplasm of thyroid

== ENCOUNTER → 2022-06-11 | Outpatient (CLI) | payer MEDICARE, MEDICAID | LOC: M LAB 10:05 | PROVIDERS: ATTEND Nurse Practitioner Family | DX: E89.0 Postprocedural hypothyroidism (principal) ==

== ENCOUNTER → 2022-08-16 | Outpatient (REF) | payer MEDICARE, MEDICAID ==
[2022-08-16 18:06] LABS: PERCENT SATURATION 22.6 % (13.2-45.0)
[2022-08-16 18:09] LABS: FERRITIN 788.2 NG/ML (7.3-270.7)
== END ==
LOC: M LAB REF 16:53
PROVIDERS: ATTEND Nurse Practitioner Family
DX: D50.9 Iron deficiency anemia, unspecified (principal)

== ENCOUNTER → 2022-11-20 | Outpatient (REF) | payer MEDICARE, MEDICAID ==
[~2022-11-20] MED LIST changes: +AMLO1TAB25 PO; +DOCU100C16 PO; +FAMO40TA3 PO; +FERR325T19 PO; +LEVO75TA4 PO; -PROC20004; +PROC20004 SQ
[2022-11-20 19:19] LABS: THYROID STIMULATING HORMONE 37.361 uIU/ML (0.55-4.78)
[2022-11-20 19:20] LABS: FREE T4 1.05 NG/DL (0.89-1.76)
== END ==
LOC: M LAB REF 17:16
PROVIDERS: ATTEND Nurse Practitioner Family
DX: E89.0 Postprocedural hypothyroidism (principal)

== ENCOUNTER → 2022-11-20 | Outpatient (REF) | payer MEDICARE, MEDICAID ==
[2022-11-20 18:49] LABS: PERCENT SATURATION 24.4 % (13.2-45.0)
[2022-11-20 18:52] LABS: FERRITIN 758.3 NG/ML (7.3-270.7)
== END ==
LOC: M LAB REF 17:17
PROVIDERS: ATTEND Nurse Practitioner Family
DX: D50.9 Iron deficiency anemia, unspecified (principal); D63.1 Anemia in chronic kidney disease; E89.0 Postprocedural hypothyroidism

== ENCOUNTER 2023-02-10 02:06 | Emergency (ER) | payer MEDICARE, MEDICAID ==
[~2023-02-10] VITALS: Ht 165.1 cm; Wt 63.6 kg
[~2023-02-10 02:06] MED LIST changes: +CEFD1CAP9 PO; -CEFD300C41 PO
[2023-02-10] MEDS ORDERED: ONDANSETRON 4MG 2ML VIAL As Ordered ONE (02:25)
[2023-02-10] MEDS ORDERED: ONDANSETRON 4MG 2ML VIAL IV ONE (02:30)
[2023-02-10] MEDS ORDERED: NS 1,000 ML IV ONE (02:30)
[2023-02-10 02:50] LABS: BASO % 0.3 % (0.0-1.0); EOS % 0.3 % (0.0-3.0); HEMATOCRIT 34.3 % (36.0-47.0); HEMOGLOBIN 10.7 g/dl (12.0-15.5); LYMPH # 1.8 10^3/uL (1.5-5.0); LYMPH % 12.3 % (24.0-44.0); MEAN CORPUSCULAR HGB CONC 31.2 g/dl (32.0-36.5); MEAN CORPUSCULAR VOLUME 70.6 fl (80.0-96.0); MONO # 1.1 10^3/uL (0.0-0.8); MONO % 7.5 % (2.0-8.0); NEUTROPHILS # 11.3 10^3/uL (1.5-8.5); PLATELET COUNT, AUTOMATED 303 10^3/uL (150-450); RED BLOOD COUNT 4.86 10^6/uL (4.00-5.40); WHITE BLOOD COUNT 14.3 10^3/uL (4.0-10.0)
[2023-02-10 03:44] LABS: INR 1.1; PROTHROMBIN TIME 13.9 SECONDS (12.5-14.5)
[2023-02-10 03:45] LABS: PARTIAL THROMBOPLASTIN TIME 29.4 SECONDS (24.8-34.2)
[2023-02-10 04:02] LABS: ETHYL ALCOHOL (ETHANOL) 0.178 % (0.000-0.010)
[2023-02-10 04:03] LABS: ALBUMIN 4.8 G/DL (3.2-5.2); BILIRUBIN,TOTAL 0.6 MG/DL (0.3-1.2); CALCIUM LEVEL 10.7 MG/DL (8.3-10.6); CREATININE FOR GFR 1.23 MG/DL (0.55-1.30); GLOMERULAR FILTRATION RATE 44.2 (>32); POTASSIUM SERUM 4.4 MMOL/L (3.5-5.1); TOTAL PROTEIN 7.9 G/DL (5.7-8.2)
[2023-02-10 05:51] VITALS: BP 148/78; TEMP 98; O2SAT 96
== END 2023-02-10 08:55 | disposition home or self-care (01) ==
LOC: EDBD 02:06 → M ED 02:06
DX: F10.129 Alcohol abuse with intoxication, unspecified (principal); S00.81XA Abrasion of other part of head, initial encounter; W01.10XA Fall on same level from slipping, tripping and stumbling with subsequent striking against unspecified object, initial encounter; Y92.89 Other specified places as the place of occurrence of the external cause; Y93.89 Activity, other specified; Y99.8 Other external cause status
CPT/HCPCS: 70450; 70486; 71045; 72125; 72190; 73080; 73090; 80053; 82077; 83735; 85025; 85610; 85730; 93005; 96374; 99284; J2405

== ENCOUNTER → 2023-02-27 | Outpatient (REF) | payer MEDICARE, MEDICAID, OTHER ==
[2023-02-27 18:35] LABS: PERCENT SATURATION 22.5 % (13.2-45.0)
== END ==
LOC: M LAB REF 17:20
PROVIDERS: ATTEND Nurse Practitioner Family
DX: D50.9 Iron deficiency anemia, unspecified (principal)

== ENCOUNTER → 2023-05-13 | Outpatient (REF) | payer MEDICARE, MEDICAID ==
[~2023-05-13] MED LIST changes: +PROC1INJ6 IJ
[2023-05-13 19:28] LABS: FERRITIN 861.1 NG/ML (7.3-270.7); PERCENT SATURATION 35.7 % (13.2-45.0)
== END ==
LOC: M LAB REF 17:36
PROVIDERS: ATTEND Nurse Practitioner Family
DX: D50.9 Iron deficiency anemia, unspecified (principal)

== ENCOUNTER → 2023-06-06 | Outpatient (REF) | payer MEDICARE, MEDICAID | LOC: M LAB REF 17:15 | PROVIDERS: ATTEND Nurse Practitioner Family | DX: E89.0 Postprocedural hypothyroidism (principal) ==

== ENCOUNTER → 2023-07-17 | Outpatient (REF) | payer MEDICARE, MEDICAID ==
[~2023-07-17] MED LIST changes: +PROC20004 IJ; -ROSU10TA6; +ROSU10TA61; -ROSU40TA4 PO; +ROSU40TA63 PO
[2023-07-17 18:51] LABS: PERCENT SATURATION 17.8 % (13.2-45.0)
[2023-07-17 18:52] LABS: FERRITIN 757.5 NG/ML (7.3-270.7)
== END ==
LOC: M LAB REF 17:14
PROVIDERS: ATTEND Nurse Practitioner Family
DX: D50.9 Iron deficiency anemia, unspecified (principal)

== ENCOUNTER → 2023-10-10 | Outpatient (REF) | payer MEDICARE, MEDICAID ==
[2023-10-10 19:05] LABS: FERRITIN 839.8 NG/ML (7.3-270.7)
== END ==
LOC: M LAB REF 17:26
PROVIDERS: ATTEND Nurse Practitioner Family
DX: D50.9 Iron deficiency anemia, unspecified (principal)

== ENCOUNTER 2023-11-04 09:00 | Outpatient (CLI) | payer MEDICARE, MEDICAID ==
[2023-11-04] VITALS (7 sets, daily range): BP systolic 148–177; BP diastolic 65–80; O2SAT 98–99
[~2023-11-04] VITALS: Ht 160 cm; Wt 46.3 kg
[~2023-11-04 09:00] MED LIST changes: +ALBUTEROL SULFATE 2.5MG/0.5ML INH NEB SOLN INH PRN; +EPINEPHrine INJ 1 MG/ML 1ML AMP IM PRN; -ROSU40TA63 PO; +ROSU40TA81 PO; +diphenhydrAMINE 50MG/ML VIAL IV PRN
[2023-11-04] MEDS: IRON SUCROSE 25 MG in NS 23.75 ML IV ONE (09:49)
[2023-11-04] MEDS: IRON SUCROSE 475 MG in NS 250 ML IV ONE (10:30)
[2023-11-04] MEDS: methylPREDNISolone 125MG 2ML VIAL IV PRN (14:22)
[2023-11-04] MEDS: NS 1,000 ML IV SCH (14:22)
== END 2023-11-04 14:50 ==
LOC: M INFU 09:00
PROVIDERS: ATTEND Nurse Practitioner Family
DX: D50.9 Iron deficiency anemia, unspecified (principal)

== ENCOUNTER 2023-11-04 19:02 | Emergency (ER) | payer MEDICARE, MEDICAID ==
[~2023-11-04] VITALS: Ht 157.5 cm; Wt 46.4 kg
[~2023-11-04 19:02] MED LIST changes: -ALBUTEROL SULFATE 2.5MG/0.5ML INH NEB SOLN INH PRN; -EPINEPHrine INJ 1 MG/ML 1ML AMP IM PRN; -diphenhydrAMINE 50MG/ML VIAL IV PRN
[2023-11-04 19:03] VITALS: BP 129/61; TEMP 97.3; O2SAT 93
== END 2023-11-05 00:20 | disposition home or self-care (01) ==
LOC: M ED 19:02
DX: R22.32 Localized swelling, mass and lump, left upper limb (principal); D50.9 Iron deficiency anemia, unspecified; J44.9 Chronic obstructive pulmonary disease, unspecified; I48.91 Unspecified atrial fibrillation; I10 Essential (primary) hypertension; K21.9 Gastro-esophageal reflux disease without esophagitis; Z85.3 Personal history of malignant neoplasm of breast; Z85.528 Personal history of other malignant neoplasm of kidney; Z79.899 Other long term (current) drug therapy
CPT/HCPCS: 93971; 96365; 96366; 96375; 99283; J1756; J2919

== ENCOUNTER → 2023-12-10 | Outpatient (REF) | payer MEDICARE, MEDICAID ==
[~2023-12-10] MED LIST changes: +VANC250C10 PO; -VANC250C3 PO
[2023-12-10 18:56] LABS: PERCENT SATURATION 34.9 % (13.2-45.0)
[2023-12-10 18:58] LABS: FERRITIN 1327.6 NG/ML (7.3-270.7)
== END ==
LOC: M LAB REF 17:34
PROVIDERS: ATTEND Nurse Practitioner Family
DX: D50.9 Iron deficiency anemia, unspecified (principal)

== ENCOUNTER → 2023-12-23 | Outpatient (REF) | payer MEDICARE, MEDICAID ==
[~2023-12-23] MED LIST changes: -VANC250C10 PO; +VANC250C12 PO
[2023-12-23 18:57] LABS: FERRITIN 1594.5 NG/ML (7.3-270.7)
== END ==
LOC: M LAB REF 17:17
PROVIDERS: ATTEND Nurse Practitioner Adult Health
DX: N18.30 Chronic kidney disease, stage 3 unspecified (principal)

== ENCOUNTER → 2024-03-19 | Outpatient (CLI) | payer MEDICARE, MEDICAID ==
[~2024-03-19] MED LIST changes: -ADV100INH INH; -ADV250INH INH; +ADVA1AER8 INH; +ADVA1AER9 INH
== END ==
LOC: M RAD 11:49
PROVIDERS: ATTEND Internal Medicine Pulmonary Disease
DX: R63.4 Abnormal weight loss (principal)